=== PATIENT | female | born 1965 | race Caucasian/White ===

== ENCOUNTER 2024-04-22 07:30 | Observation (INO) | payer MEDICARE, SELFPAY ==
[2024-04-22] VITALS (67 sets, daily range): BP systolic 163–196; BP diastolic 91–116; PULSE 67–84; RESP 12–25; TEMP 36.5–36.9; O2SAT 92–100
--- NOTE | 2024-04-22 07:30 | DI.CT_ITS ---
Exam(s) CT BRAIN NECK CTA EXAM: CT BRAIN NECK CTA CLINICAL HISTORY: Vertigo, vertical nystagmus, ataxia. TECHNIQUE: Imaging Protocol: Axial CT angiography was performed with multi-slice acquisition and mu lti-planar and/or 3D reconstructions. CONTRAST MATERIAL: Intravenous: Omnipaque 350 Contrast volume:structured data in ml COMPARISON: No exams were available for comparison FINDINGS: CTA Neck W: Aortic arch anatomy: The aortic arch anatomy is conventional and there is no significant stenosis at the origin of the great vessels off of the aortic arch. No intimal flap evident. Anterior circulation: Both common carotid arteries ascend with normal luminal diameters. At the level the carotid bulbs and proximal internal carotid arteries there is no significant plaque and no hemodynamically significant stenosis evident. Posterior circulation: Both vertebral arteries originate in conventional fashion off of the subclavian arteries and there is no obvious stenosis at the origin of the vertebral arteries. Both vertebral arteries exhibit normal luminal diameters within the foramen transversarium. Both vertebral arteries contribute to the formation of the basilar artery at the skull base. CTA Brain W: Anterior circulation: Both internal carotid arteries are patent in the skull base-carotid canals as well as within the cave rnous sinuses. The supraclinoid aspects of the ICAs are patent. Right A1 segment. Anterior cerebral arteries are p atent and there is no aneurysm at level the anterior communicating. Both middle cerebral arteries are patent with no evidence of significant stenosis nor intraluminal th rombus. There also no aneurysms of these vessels. Posterior circulation: The basilar artery ascends in the midline. Distally it gives off patent bilateral superior cerebella r arteries. Above this level the basilar artery terminates as patent bilateral posterior cerebral arteries. There is no evidence of aneurysm at the tip of the basilar artery nor elsewhere in the hkrnjt-zo-Domn is. CT BRAIN: There is no evidence of intracranial hemorrhage, mass effect, or shift of midline structures. There are no extra-axial fluid collections. Ventricles are not enlarged or shifted. There are no ring enh ancing lesions in the brain and no abnormal meningeal enhancement. IMPRESSION: 1. Patent carotid arteries in the neck. No hemodynamically significant stenosis. 2. Patent vertebral arteries. No stenosis nor dissection. 3. Patent intracranial arteries. 4. No acute intracranial findings. No ring enhancing lesions in the brain and no evidence of abnorma l meningeal enhancement. Report called by myself to ER physician 04/22/2024 at 8:48 a.m. RADIATION DOSE DELIVERED: 2,133.71mGy.cm Total DLP DATA REPOSITORY: All CT scans at this facility are submitted to the National Radiology Data Registry (NRDR) Dose Index Registry (DIR) with the [employer] (A[employer]). RADIATION OPTIMIZATION: All CT scans at this facility use at least one of these dose optimization te chniques: automated exposure control; mA and/or kV adjustment per patient size (includes targeted exa ms where dose is matched to clinical indication); or iterative reconstruction.
--- NOTE | 2024-04-22 07:30 | RT.EKG_ITS ---
APPROVED REPORT Exam: Resting ECG Reason for Exam: Dizziness Patient Location: E HR:76 bpm ECG Measurements Heart Rate 76 AXIS AL 156 P 66 QRSd 111 QRS -53 QT 394 T 33 QTc 443 Conclusion Sinus rhythm, rate 76 No interval abnormalities Q wave lead III, aVF, no priors available for comparison No STEMI
--- NOTE | 2024-04-22 07:45 | ED.GENADUL_ITS ---
Discharge Plan Discharge Details Chief Complaint: Dizzy/Sync Primary Care Provider: Maite Bright ED Provider: Constance Harden Home Meds and New Rx's Prescriptions: No Action Medical Amparothierry 1 ea PO DAILY PRN levothyroxine 100 MCG tablet 100 mcg PO DAILY irbesartan [Avapro] 150 MG tablet 150 mg PO DAILY ibuprofen 600 MG tablet 600 mg PO QID PRN HPI General Mode of arrival: ambulatory . Date/Time Provider Initiated Documentation: 04/22/24 07:31 . Limitations to Documentation: no limitations . Information obtained by: patient and old records reviewed . HPI Narrative: HPI: This is a 58-year-old female patient with a history of hypertension, CRPS, hypothyroidism, presenting for evaluation of dizziness and today. The symptoms started suddenly at 6 AM yesterday, patient has vertigo that is worse when she tries to open her eyes, associated with numerous episodes of nonbloody vomiting. She states that she feels unsteady and has poor balance. The symptoms have been persistent throughout the day, sometimes improves with positioning but have never gone away completely. She has no personal history of vertigo, has not sustained any trauma, denies history of stroke. The patient reports that she has some numbness in her bilateral hands which is fairly typical for her with her CRPS. She has no new weakness or numbness otherwise. States that her vision is different, she feels like she can see blurry lines like a TV running down her vision. Exam: Gen: Awake and alert, in no apparent distress HEENT: Non-icteric sclera, PERRL, nonfatigable upward beating nystagmus bilaterally, EOMs are full. Bilateral TMs partially wax occluded, visible portions clear. Neck: Supple Lungs: No apparent respiratory distress, normal respiratory effort. CV: Appears well perfused, strong distal pulses Abdomen: Non-distended MSK: Moves 4 extremities without apparent limitation in ROM Skin: Visualized skin without rashes, cyanosis. Neuro: The patient has notable poor balance/ataxia when attempting to get out of the wheelchair. Ocular examination as noted above with vertical nystagmus, otherwise cranial nerves III to XII intact and symmetrical. 5 out of 5 strength x 4 extremities, numbness bilateral hands, no pronator drift. Psych: Appropriate for situation. MDM: This is a 58-year-old female patient presenting for evaluation of vertigo and vomiting for the last 24 hours. I am concerned for a central process given her vertical nystagmus, including posterior circulation stroke, intracranial mass or hemorrhage, vestibular migraine. My differential also includes peripheral causes including labyrinthitis, M?ni?re's disease. No positionality or intermittent nature to suggest BPPV. We will obtain laboratory studies to include CBC, CMP, magnesium, troponin, INR, and we will proceed with CTA brain and neck to better characterize any abnormalities. The patient is out of the tPA and thrombectomy window. Zofran provided for nausea. ED Course: I independently interpreted the laboratory studies, which show no significant leukocytosis, anemia, or thrombocytopenia. The chemistry panel is without evidence of electrolyte abnormality, kidney dysfunction, or liver injury. Troponin negative, INR 1.0. EKG with a sinus rhythm with no evidence of acute ischemia. CTA brain and neck reviewed by myself, discussed with radiologist, and shows no evidence of intracranial hemorrhage, mass effect, LVO or dissection. No evidence for ischemic changes. On reassessment the patient remains with vertical nystagmus and significant vertigo, and for this reason I did put in a teleneurology consult. I also provided the patient with a dose of meclizine for symptomatic management. Per my discussion with teleneurology, provided the patient with 325 of aspirin, and obtained an MRI with and without contrast. This did show an area of signal abnormality in the left para supraventricular white matter, no evidence for demyelinating abnormalities, and less consistent with the location that we would expect for stroke given her constellation of symptoms. However, the patient remains markedly ataxic, dizzy, with vision changes despite meclizine, and would still benefit from admission for physical therapy and ongoing workup and management. Per teleneurology, there is a potential for there to be an inner ear/vestibular neuritis component to her symptoms, and I did pass along to our hospitalist the recommendation to consider oral prednisone, 1 mg/kg daily for the next 7 days. I discussed the case with the hospitalist who is graciously accepted this patient for admission to their service. He remained hemodynamically appropriate while under my care and was transferred to their care without incident. Constance Harden MD Related Data Home Medications ?Medication ?Instructions ?Recorded ?Confirmed Medical Aundrea 1 ea PO DAILY PRN 01/19/17 04/22/24 irbesartan 150 mg tablet (Avapro) 150 mg PO DAILY 01/19/17 04/22/24 levothyroxine 100 mcg tablet 100 mcg PO DAILY 01/19/17 04/22/24 ibuprofen 600 mg tablet 600 mg PO QID PRN 04/22/24 04/22/24 Allergies Allergy/AdvReac Type Severity Reaction Status Date / Time duloxetine (From Cymbalta) AdvReac Intermediate Other (See Verified 04/22/24 07:41 Comment) pregabalin (From Lyrica) AdvReac Intermediate Other (See Verified 04/22/24 07:41 Comment) sulfabenzamide AdvReac Intermediate Unknown Unverified 04/22/24 07:41 General Stated Complaint: Dizzy/Sync EMMA: 3 Course Vital Signs Vital signs: Vital Signs Temperature 36.6 C 04/22/24 07:35 Pulse 72 04/22/24 07:35 Respiratory Rate 17 04/22/24 07:35 Blood Pressure 163/116 H 04/22/24 07:35 Pulse Oximetry 100 04/22/24 07:35 Temperature 36.6 C 04/22/24 07:35 Temperature Source Temporal Artery Scan 04/22/24 07:35 Pulse 72 04/22/24 07:35 Respiratory Rate 17 04/22/24 07:35 Blood Pressure 163/116 H 04/22/24 07:35 Pulse Oximetry 100 04/22/24 07:35 Oxygen Delivery Method Room Air 04/22/24 07:35 Oxygen Flow Rate 0 04/22/24 07:35 Pain Level 0 04/22/24 07:35 Medical Decision Making Quality:SDOH Health Related Social Needs: No Data to Display PFSH Social History Smoking/Tobacco Use Status: Never Smoking risk assessment performed?: Yes Alcohol Intake: never Drug use: Never Substance use type: marijuana Details: medical MJ Housing: house Do you feel safe in your relationship?: Yes
[2024-04-22 08:02] LABS: Abs Immature Grans 0.03 10^3/uL (0.0-0.06); Absolute Basophil Count 0.05 10^3/uL (0.0-0.2); Absolute Eosinophil Count 0.12 10^3/uL (0.0-0.7); Absolute Lymphocyte Count 2.25 10^3/uL (1.2-3.4); Absolute Monocyte Count 0.68 10^3/uL (0.1-0.8); Absolute Neutrophil Count 5.73 10^3/uL (1.2-6.7); Basophils % 0.6 %; Eosinophils % 1.4 %; HCT 45.1 % (36.0-46.0); HGB 15.3 g/dL (11.2-15.7); Immature Grans % 0.3 %; Lymphocytes % 25.4 %; MCH 29.8 pg (27.0-33.0); MCHC 33.9 % (32.0-36.0); MCV 88 fL (80-95); MPV 10.5 fL (8.0-11.0); Monocytes % 7.7 %; Neutrophils % 64.6 %; Platelet Count 255 10^3/uL (130-400); RBC 5.13 10^6/uL (3.93-5.22); RDW 11.9 % (11.7-14.6); RDW-SD 38.2 fL; WBC 8.86 10^3/uL (4.4-10.8)
[2024-04-22] MEDS: Omnipaque 350 MG/ML 500 ML BTL-Imaging package IJ (08:21)
[2024-04-22] MEDS: Normal Saline - Diluent 50 ML VIAL IJ (08:21)
[2024-04-22 08:47] LABS: ALT 30 U/L (14-59); AST 25 U/L (15-37); Alkaline Phosphatase 120 U/L (46-116); Anion Gap 11.9 mmol/L (3-11); BUN 12 mg/dL (7-18); CO2 24.1 mmol/L (21.0-32.0); CREATININE 0.9 mg/dL (0.55-1.02); Chloride 108 mmol/L (98-107); Estimated GFR 75.03 (mL/min/1.73m2); Glucose 101 mg/dL (74-106); Magnesium 2.1 mg/dL (1.8-2.4); Potassium 3.5 mmol/L (3.5-5.1); Sodium 144 mmol/L (136-145); Total Protein 8.1 g/dL (6.4-8.2); Troponin I 7 ng/L (<or=51)
[2024-04-22] MEDS: Meclizine 25 MG TAB PO (09:12)
[2024-04-22] MEDS: Ondansetron 4 MG/2 ML VIAL IVP (09:12)
--- OUTSIDE RECORDS SUMMARY | 2024-04-22 09:18 | XMS_ITS | Encounter Summary ---
Author Organization [facility] Address [address] [place] [id number] Care Team Providers Care Director Talent Name Role Phone Maite Bright DNP Primary Care Provider [phone] Reason for Referral * Radiology Services (Routine/Next Available) - Authorization Not Required Specialty Diagnoses / Procedures Referred By Contac t Referred To Contact Diagnoses Mass of upper outer quadrant of left breast Procedures MA BREAST DIAGNOSTIC ALANNA LEFT Mariela Clayton NP Phone: tel: fax: [facility] Referral ID Status Reason Start Date Expiration Date Visits Requested Visits Authorized [id number] Authorization Not Required 09/25/2022 1 1 Reason for Visit * Radiology Services (Routine/Next Available) - Authorization Not Required Specialty Diagnoses / Procedures Referred By Contac t Referred To Contact Diagnoses Mass of upper outer quadrant of left breast Procedures MA BREAST DIAGNOSTIC ALANNA LEFT Mariela Clayton NP Phone: tel: fax: [facility] Referral ID Status Reason Start Date Expiration Date Visits Requested Visits Authorized [id number] Authorization Not Required 09/25/2022 1 1 Encounter Details Date Type Department Care Team (Latest Contact Info) Description 10/14/2022 9:59 EDT Hospital Encounter [facility] Mammography [address] [place] [address] Mass of upper outer quadrant of left breast Discharge Disposition: Home or Self Care Social History Tobacco Use Types Packs/Day Years Used Date Smoking Tobacco: Never Smokeless Tobacco: Never Alcohol Use Standard Drinks/Week Comments Yes 0 (1 standard drink = 0.6 oz pur e alcohol) Overall Financial Resource Strain (CARDIA) Answe r Date Recorded How hard is it for you to pa y for the very basics like food, housing, medical care, and heating? Somewhat hard 06/03/2022 PHQ-2 Answer Date Recorded PHQ-2 SUBTOTAL 0 06/03/2022 Hunger Vital Sign Answer Date Recorded Within the past 12 months, y ou worried that your food would run out before you got the money to buy more. Never true 06/04/19 23 Within the past 12 months, t he food you bought just didn't last and you didn't have money to get more. Never true 06/03/2022 PRAPARE - Transportation Answer Date Re corded In the past 12 months, has l ack of transportation kept you from medical appointments or from getting medications? Yes 05/09 In the past 12 months, has l ack of transportation kept you from meetings, work, or from getting things needed for daily living? Yes 06/03/2022 Housing Stability Vital Sign Answer Mayo e Recorded In the last 12 months, was t here a time when you were not able to pay the mortgage or rent on time? Patient refused 06/04/19 In the last 12 months, how many places have you lived? 2 06/03/2022 In the last 12 months, was t here a time when you did not have a steady place to sleep or slept in a snf (including now)? No 06/03/2022 Interpersonal Safety Answer Date Record ed How often does anyone, bisi morris family, hit, punch or physically hurt you? Never 06/03/2022 How often does anyone, bisi morris family, insult, scream, curse or threaten to hurt you? Never 06/03/2022 Comments No Sex and Gender Information Value Date Recorded Sex Assigned at Female 01/30/2024 9:50 EST Legal Sex Female 17:44 EST Gender Identity Female 01/30/2024 9:50 EST Sexual Orientation Not on file documented as of this encounter Medications at Time of Discharge betamethasone dipropionate (DIPROLENE) 0.05 % ointment Apply 1 application topically 2 times daily. to eczema on body/extremities 9 CANNABIDIOL, CBD, EXTRACT ORAL Lactobac no.41/Bifidobact no.7 (PROBIOTIC-10 ORAL) Take by mouth. magnesium oxide (MAG-OX) 400 mg (241.3 mg magnesium) tablet Take 1 Tablet by mouth daily. MEDICAL MARIJUANA NATURAL BEE POLLEN ORAL Take by mouth. UNABLE TO FIND Multivitamin one tablet , Sig: orally daily irbesartan (AVAPRO) 150 mg tabletIndications:E ssential hypertension TAKE 1 TABLET BY MOUTH EVERY DAY 90 Tablet 3 2 04/09/19 24 levothyroxine (SYNTHROID) 100 mcg tabletIndications:A cquired hypothyroidism TAKE 1 TABLET BY MOUTH EVERY DAY 90 Tablet 3 2 11/26/19 23 documented as of this encounter Discharge Disposition Disposition Code Departure Means Destination Home or Self Care documented in this encounter Plan of Treatment Upcoming Encounters Date Type Department Care Team (Late st Contact Info) Description 07/07/2024 10:15 EDT Office Visit [facility] Family Medicine [address] [id number] Maite Bright DNP [address] [place] [id number] documented as of this encounter Procedures Procedure Name Priority Date/Time Associated Diagnosis Comments MA BREAST DIAGNOSTIC ALANNA LEFT Routine 10/14/2022 10:36 EDT Mass of upper outer quadrant of left breast documented in this encounter Results * MA BREAST DIAGNOSTIC ALANNA LEFT (10/14/2022 10:36 EDT) Anatomical Region Laterality Modality Breast Left Mammography 10/14/2022 14:2 7 EDT Impressions 10/14/2022 14:27 EDT DIAGNOSTIC LEFT BREAST MAMMOGRAM/ULTRASOUND IMPRESSION: BI-RADS Category 2: Benign * ??Benign. 0.9 cm maximal dimension benign fat-containing lesion at the site of palpable concern. RECOMMENDATION: Recommend clinical follow-up. Should this lesion enlarge, recommend repeat imaging assessment. The patient is due for annual bilateral screening mammogram in June 2023.. ??Олег Sheth discussed the findings and recommendations directly with the patient at the time of the examination. OVERALL ASSESSMENT: ??BI-RADS Category 2: Benign These results will be communicated to your patient via a lay letter from Radiology. If any additional imaging is needed we will contact your patient directly. [id number] Narrative 10/14/2022 14:27 EDT US BREAST LIMITED LEFT, MA BREAST DIAGNOSTIC ALANNA LEFT ?? SIGNS AND SYMPTOMS/COMMENTS: ??56 YO F W/ 1.2CM MOBILE, NONTENDER MASS OF LEFT BREAST AT 11-12:00 2CM FROM AREOLAR BORDER;N63.21:MASS OF UPPER OUTER QUADRANT OF LEFT BREAST COMPARISONS: Comparison has been made to prior examinations. FINDINGS: LEFT BREAST MAMMOGRAPHY: Full field digital whole breast 2D (C-view) and 3D CC, MLO and spot compression MLO views of the left breast were obtained. CAD technology was utilized. ?? * ??There are scattered areas of fibroglandular density. A triangular marker was placed over the upper left breast denoting area of palpable concern. Immediately adjacent to the marker, there is a oval circumscribed mass measuring 0.7 cm in maximal dimension containing internal fat density. There is no architectural distortion or suspicious microcalcification. LEFT BREAST ULTRASOUND: The upper left breast was scanned along the 11:00 axis to cover the area of palpable concern as directed by the patient. * ??Corresponding with the site of palpable concern, at the 11 o'clock position, 3 cm from the nipple, there is an oval circumscribed mildly hyperechoic mass oriented parallel to the chest wall without significant posterior acoustic features. It measures 0.7 x 0.4 x 0.9 cm. Findings are compatible with fat inflammation/necrosis or developing oil cyst. No suspicious sonographic abnormality was detected. us Mariela Clayton [employer]ODITY MANAGER IMG MAMMOGRAPHY ORDERABLES Final Result documented in this encounter Visit Diagnoses Diagnosis Mass of upper outer quadrant of left breast documented in this encounter Care Teams Director Talent Relationship Specialty Start Date End Date Maite Bright DNP [address] [place] [id number] PCP - General 11/27/15 documented as of this encounter
--- OUTSIDE RECORDS SUMMARY | 2024-04-22 09:18 | XMS_ITS | Referral Summary ---
Author Organization [facility] Address [address] [place] [address] Care Team Providers Care Ibm Websphere Commerce Developer Name Role Phone Maite Bright DNP Primary Care Provider [phone] Encounters Date Type Department Care Team Description 04/21/[address] [address] Maite Bright DNP Medications Refill 03/08/[address] [phone] Maite Bright DNP Referral Request 01/30/2024 9:54 EST - 01/30/2024 23:59 [facility] Encounter [facility] Ultrasound [address] [place] [address] Breast pain, right Discharge Disposition: Home or Self Care 01/30/2024 9:51 EST - 01/30/2024 9:53 [facility] Hospital Encounter [facility] Mammography [address] [place] [address] Breast pain, right; Encounter for screening mammogram for malignant neoplasm of breast Discharge Disposition: Home or Self Care from Last 3 Months Allergies Active Allergy Reactions Criticality Noted Date Comments Duloxetine Other (See Comments) Low 08/13/2018 Other reaction(s): passed out Pregabalin Other (See Comments) Low 08/13/2018 Other reaction(s): passed out Sulfa (Sulfonamide Antibiotics) Anaphylaxis High 02/15/2016 Throat swelling and rash Medications betamethasone dipropionate (DIPROLENE) 0.05 % ointment Apply 1 application topically 2 times daily. to eczema on body/extremitie s 019 Active UNABLE TO FIND Multivitamin one tablet , Sig: orally daily Active CANNABIDIOL, CBD, EXTRACT ORAL Active NATURAL BEE POLLEN ORAL Take by mouth. Act gurmeet magnesium oxide (MAG-OX) 400 mg (241.3 mg magnesium) tablet Take 1 Tablet by mouth daily. Active Lactobac no.41/Bifidobact no.7 (PROBIOTIC-10 ORAL) Take by mouth. Activ e MEDICAL MARIJUANA Ac tive levothyroxine (SYNTHROID) 100 mcg tabletIndications :Acquired hypothyroidism Take 1 Tablet by mouth daily. 90 Tablet 4 024 Active irbesartan (AVAPRO) 150 mg tabletIndications :Essential hypertension TAKE 1 TABLET BY MOUTH EVERY DAY 90 Tablet 3 025 Active irbesartan (AVAPRO) 150 mg tabletIndications :Essential hypertension TAKE 1 TABLET BY MOUTH EVERY DAY 90 Tablet 3 024 2024 Discontinued Active Problems Problem Noted Date Diagnosed Date Complex regional pain syndro me type 1 of both upper extremities 07/01/2019 Essential hypertension 04/26/2019 Hypothyroidism 04/26/2019 Intrinsic eczema 04/26/2019 Back pain 04/26/2019 Resolved Problems Problem Noted Date Diagnosed Date Resolved Date Mixed hyperlipidemia 04/26/2019 022 Immunizations Name Administration Dates Next Due Covid-19 mRNA Booster Vaccin e (MODERNA COVID-19 BOOSTER) PF 0.25 mL IM (18 yrs+) 03/08/2021 Covid-19 mRNA Vaccine (MODER NA COVID-19) PF 0.5 ml IM (12 yrs+) 08/08/2020,07/11/2020 Covid-19 mRNA-LNP Bivalent V accine (MODERNA BIVALENT ADDL DOSE) PF 0.5 mL IM (12 yrs+) (BLUE) 06/11/2022 Influenza Vaccine Quad (AFLURIA) PF 0.5 ml IM (3 yrs+) 12/22/2018 Shingrix (Zoster Vaccine, Recombinant) IM 2020,11/12/2019 Tdap Vaccine =>7YO IM 11/27/2015 Social History Tobacco Use Types Packs/Day Years [...] 06/03/2022 PHQ-2 Answer Date Recorded PHQ-2 SUBTOTAL 2 12/31/2023 Hunger Vital Sign Answer Date Recorded Within the past 12 months, y ou worried that your food would run out before you got the money to buy more. Never true 06/04/19 Within the past 12 months, t he [...] place to sleep or slept in a residential (including now)? No 06/03/2022 Interpersonal Safety Answer Date Record ed How often does anyone, noreenchayo alexandra family, hit, punch or physically hurt you? Never 06/03/2022 How often does anyone, noreenchayo alexandra family, insult, scream, curse or threaten to hurt you? Never 06/03/2022 Comments No Sex and Gender Information Value Date Recorded Sex Assigned at Female 01/30/2024 9:50 EST Legal Sex Female 17:44 EST Gender Identity Female 01/30/2024 9:50 EST Sexual Orientation Not on file Last Filed Vital Signs Vital Sign Reading Time Taken Comments Blood Pressure 150/90 12/31/2023 1349 EDT Pulse 83 12/31/2023 1349 EDT Temperature 37 ??C (98.6 ??F) 06/14/2021 0957 EDT Respiratory Rate 16 06/14/2021 0957 EDT Oxygen Saturation 98% 12/31/2023 1349 EDT Inhaled Oxygen Concentration - - Weight 92.1 kg (203 lb) 01/30/2024 1007 EST Height 163.8 cm (5' 4.5) 01/30/2024 1007 EST Body Mass Index 34.31 01/30/2024 1007 EST Plan of Treatment Upcoming Encounters Date Type Department Care Team (Late st Contact Info) Description 07/07/2024 10:15 EDT Office Visit [facility] - [address] [address] Maite Bright, [facility] [place] [address] [place] [address] Procedures Procedure Name Priority Date/Time Associated Diagnosis Comments US BREAST LIMITED RIGHT Routine 01/30/2024 10:49 EST Breast pain, right MA BREAST DIAGNOSTIC ALANNA BILATERAL Routine 01/30/2024 10:14 EST Breast pain, right Encounter for screening mammogram for malignant neoplasm of breast LIPID PROFILE (INCLUDES CHOLESTEROL, TRIGLYCERIDES, HDL, LDL) Routine 12/31/2023 8:56 EDT Screening, lipid PAP TEST Routine 06/11/2022 11:28 EDT Encounter for Medicare annual wellness exam Cervical cancer screening COLONOSCOPY PROCEDURE Routine 06/03/2018 from Last 3 Months or Most Recently Relevant to Health Maintenance Results * US BREAST LIMITED RIGHT (01/30/2024 10:49 EST) Anatomical Region Laterality Modality Breast Right Ultrasound 01/30/2024 13:2 4 EST Impressions 01/30/2024 13:24 EST RIGHT BREAST IMPRESSION: BI-RADS 2: Benign. * ??No mammographic or sonographic explanation for reported breast pain. LEFT BREAST IMPRESSION: BI-RADS 1: Negative. * ??Normal. RECOMMENDATION: * ??Follow-up with referring provider for clinical management of breast pain. Please note, negative imaging results should never preclude further evaluation and/or biopsy of any clinically suspicious palpable lump. * ??Resume annual mammographic screening with next exam to be scheduled for January 2025. These findings and recommendations were discussed with the patient by the nanoelectronics engineer shortly after completion of the examination. OVERALL ASSESSMENT: BI-RADS 2: Benign. These results will be communicated to the patient via a lay letter from Radiology. [address] [place] [address] [id number] Narrative 01/30/2024 13:24 EST MA BREAST DIAGNOSTIC ALANNA BILATERAL US BREAST LIMITED RIGHT ?? SIGNS AND SYMPTOMS/COMMENTS: * ??R breast pain; also due for screening. * ??Per patient, right breast focal pain at approximately 2:00-3:00, for 7-8 months. Patient denies a palpable lump. Left breast feeding. COMPARISONS: MAMMOGRAPHY - ??10/14/2022, 06/10/2022, 08/18/2017, 07/24/2016, 01/16/2009. FINDINGS: RIGHT BREAST MAMMOGRAPHY: Full field digital whole breast 2-D (C-view) and 3-D CC, ML and MLO views, as well as a 3-D spot compression CC view, were obtained. CAD technology was utilized. * ??The breasts are almost entirely fatty. * ??A square marker has been placed over the site of pain as directed by the patient, lying over the posterior upper inner quadrant. No underlying mammographic abnormality is visible. * ??No suspicious mass, calcifications, or architectural distortion is identified. RIGHT BREAST ULTRASOUND: Targeted ultrasound of the upper inner quadrant was performed. * ??No sonographic abnormality is identified in the region of pain indicated by the patient. LEFT BREAST MAMMOGRAPHY: Full field digital whole breast 2-D (C-view) and 3-D CC and MLO views were obtained. CAD technology was utilized. * ??The breasts are almost entirely fatty. * ??No suspicious mass, calcifications, or architectural distortion is identified. Resulting Agency Comment [id number] us Maite Bright DNP [facility] [place] ORDERABLES Final Result * MA BREAST DIAGNOSTIC ALANNA BILATERAL (01/30/2024 10:14 EST) Anatomical Region Laterality Modality Breast Bilateral Mammography 01/30/2024 13:2 4 EST Impressions 01/30/2024 13:24 EST RIGHT BREAST IMPRESSION: BI-RADS 2: Benign. * ??No mammographic or sonographic explanation for reported breast pain. LEFT BREAST IMPRESSION: BI-RADS 1: Negative. * ??Normal. RECOMMENDATION: * ??Follow-up with referring provider for clinical management of breast pain. Please note, negative imaging results should never preclude further evaluation and/or biopsy of any clinically suspicious palpable lump. * ??Resume annual mammographic screening with next exam to be scheduled for January 2025. These findings and recommendations were discussed with the patient by the nanoelectronics engineer shortly after completion of the examination. OVERALL ASSESSMENT: BI-RADS 2: Benign. These results will be communicated to the patient via a lay letter from Radiology. [address] [place] [address] [id number] Narrative 01/30/2024 13:24 EST MA BREAST DIAGNOSTIC ALANNA BILATERAL US BREAST LIMITED RIGHT ?? SIGNS AND SYMPTOMS/COMMENTS: * ??R breast pain; also due for screening. * ??Per patient, right breast focal pain at approximately 2:00-3:00, for 7-8 months. Patient denies a palpable lump. Left breast feeding. COMPARISONS: MAMMOGRAPHY - ??10/14/2022, 06/10/2022, 08/18/2017, 07/24/2016, 01/16/2009. FINDINGS: RIGHT BREAST MAMMOGRAPHY: Full field digital whole breast 2-D (C-view) and 3-D CC, ML and MLO views, as well as a 3-D spot compression CC view, were obtained. CAD technology was utilized. * ??The breasts are almost entirely fatty. * ??A square marker has been placed over the site of pain as directed by the patient, lying over the posterior upper inner quadrant. No underlying mammographic abnormality is visible. * ??No suspicious mass, calcifications, or architectural distortion is identified. RIGHT BREAST ULTRASOUND: Targeted ultrasound of the upper inner quadrant was performed. * ??No sonographic abnormality is identified in the region of pain indicated by the patient. LEFT BREAST MAMMOGRAPHY: Full field digital whole breast 2-D (C-view) and 3-D CC and MLO views were obtained. CAD technology was utilized. * ??The breasts are almost entirely fatty. * ??No suspicious mass, calcifications, or architectural distortion is identified. Maite Bright [facility] [place] IM MAMMOGRAPHY ORDERABLES Final Result * (ABNORMAL) LIPID PROFILE (INCLUDES CHOLESTEROL, TRIGLYCERIDES, HDL, LDL) (12/31/2023 8:56 EDT) Cholesterol 291(H) <200 mg/dL 12/31/2023 10:46 [facility] Comment:Note that therapeuti c goals will differ between patients based on cardiac risk factors and current medical therapy. HDL 64 >=50 mg/dl 12/31/2023 10:46 [facility] Comment:Note that therapeuti c goals will differ between patients based on cardiac risk factors and current medical therapy. LDL, Calculated 186(H) <160 mg/dL 10:46 [facility] Comment:Note that therapeuti c goals will differ between patients based on cardiac risk factors and current medical therapy. Triglyceride 203(H) <=150 mg/dL 12/31/2023 10:46 [facility] Comment:Note that therapeuti c goals will differ between patients based on cardiac risk factors and current medical therapy. Chol/HDL Ratio 4.5 See Note 12/31/2023 10:46 [facility] Comment: NOTE: Desirable Ratio = <4.1 Patient At Risk Ratio = >5.0(Males) ?>6.0(Females) Non HDL Cholesterol 227(H) <160 mg/dL 12/31/2023 10:46 [facility] Comment:Note that therapeuti c goals will differ between patients based on cardiac risk factors and current medical therapy. Blood VENOUS BLOOD / Unknown Venipuncture / Unknown 12/31/2023 8:56 EDT 12/31/2023 10:01 EDT us Maite Bright DNP CHEMISTRY & BLOOD GAS ORDERABLES Final Result Performing Organization Address City/[facility]/ZIP Co de Phone Number [facility] [address] [place] [phone] * PAP TEST (06/11/2022 11:28 EDT) Specimens A. Cervix and/or Endocervix , ThinPrep Imaging System with Manual Evaluation 06/25/2022 15:15 EDT [facility] Specimen Adequacy Satisfactory for Evaluation - transformation zone component absent 06/25/2022 15:15 T [facility] General Categorization Negative for intraepithelial lesion or malignancy 06/25/2022 15:15 T [facility] Attestation . 06/25/2022 15:15 T [facility] at 1515 Clinical History cervical cancer screen 06/25/2022 15:15 EDT [facility] HPV The result for the Human Papillomavirus (HPV) Detection-High Risk Types is Negative. No E6 or E7 mRNA is detected from HPV types 16,18,31,33,35,39 ,45,51,52,56,58,5 9,66, and 68 by master pilot mediated amplification.Yamila ting was performed on specimen [id number] and was resulted on 06/25/2022 1515 EDT by MARCELA, LAB INSTRUMENT RESULTS IN 06/25/2022 15:15 EDT [facility] Performing Lab [facility] 06/25/2022 15:15 EDT [facility] Scanned Images 06/25/2022 15:15 EDT [facility] Papanicolaou smear specimen (specimen) CERVIX UTERI STRUCTURE / Unknown 06/11/2022 11:28 EDT 06/11/2022 11:28 EDT us Maite Bright DNP PATHOLOGY ORDERABLES Final Resul t [facility] [address] [place] [address] * COLONOSCOPY PROCEDURE (06/03/2018) Colonoscopy Colonoscopy, External Comment:Normal, repeat in 10 yrs Anatomical Region Laterality Modality Endoscopy us Historical Provider GI PROCEDURE ORDERABLES F inal Result from Last 3 Months or Most Recently Relevant to Health Maintenance [place] Care Teams Ibm Websphere Commerce Developer Relationship Specialty Start Date End Date Maite Bright DNP [address] [place] [phone] PCP - General 11/27/15
--- OUTSIDE RECORDS SUMMARY | 2024-04-22 09:18 | XMS_ITS | Encounter Summary ---
Author Organization [facility] Address [address] [place] [address] Care Team Providers Care Civil Drafting Technician Name Role Phone Maite Bright DNP Primary Care Provider [phone] Reason for Visit * Reason Comments Med Change Request Encounter Details Date Type Department Care Team (Late st Contact Info) Description 12/24/2023 Refill [facility] [address] [address] Maite Bright DNP [address] [place] [phone] Med Change Request Social History Tobacco Use Types Packs/Day Years [...] or rent on time? Patient refused 06/04/19 23 In the last 12 months, how many places have you lived? 2 06/03/2022 In the last 12 months, was t here a time when you did not have a steady place to sleep or slept in a halfway (including now)? No 06/03/2022 Interpersonal Safety Answer Date Record ed How often does anyone, inclchayo alexandra family, hit, punch or physically hurt you? Never 06/03/2022 How often does anyone, inclchayo morris family, insult, scream, curse or threaten to hurt you? Never 06/03/2022 Comments No Sex and Gender Information Value Date Recorded Sex Assigned at Female 01/30/2024 9:50 EST Legal Sex Female 17:44 EST Gender Identity Female 01/30/2024 9:50 EST Sexual Orientation Not on file documented as of this encounter Miscellaneous Notes * Telephone Encounter - Marcelina Etienne RN - 12/24/2023 0953 EDT Labs ordered. Levothyroxine declined. Patient needs fasting labs drawn documented in this encounter Plan of Treatment Upcoming Encounters Date Type Department Care Team (Late st Contact Info) Description 07/07/2024 10:15 EDT Office Visit [facility] [address] [place] [address] Maite Bright DNP [address] [place] [address] documented as of this encounter Results * COMPREHENSIVE METABOLIC PANEL (CMP) (12/31/2023 8:56 EDT) Sodium 142 136 - 145 mmol/L 12/31/2023 10:46 [facility] Potassium 4.4 3.5 - 5.0 mmol/L 12/31/2023 10:46 [facility] Chloride 105 96 - 110 mmol/L 12/31/2023 10:46 [facility] CO2 Total 27 22 - 32 mmol/L 12/31/2023 10:46 [facility] Glucose 77 70 - 99 mg/dl 12/31/2023 10:46 [facility] BUN 12 10 - 26 mg/dL 12/31/2023 10:46 [facility] Creatinine 0.80 0.52 - 1.04 mg/dL 12/31/2023 10:46 [facility] eGFR 86 >60 mL/min/1.7 3m2 12/31/2023 10:46 [facility] Total Protein 7.1 6.3 - 8.2 g/dL 12/31/2023 10:46 [facility] Albumin 4.6 3.4 - 4.9 g/dL 12/31/2023 10:46 [facility] Alkaline Phosphatase 98 38 - 126 U/L 12/31/2023 10:46 [facility] AST 26 15 - 46 U/L 12/31/2023 10:46 [facility] ALT 25 <35 U/L 12/31/2023 10:46 [facility] Bilirubin, Total 0.9 <1.4 mg/dL 12/31/19 10:46 [facility] Calcium 10.0 8.5 - 10.5 mg/dL 12/31/2023 10:46 [facility] Albumin/Globulin Ratio 1.8 1.0 - 2.5 12/31/2023 10:46 [facility] Anion Gap 10 5 - 14 mmol/L 12/31/2023 10:46 [facility] Blood VENOUS BLOOD / Unknown Venipuncture / Unknown 12/31/2023 8:56 EDT 12/31/2023 10:01 EDT Maite Hernandezne [facility] CHEMISTRY & BLOOD GAS ORDERABLES Final Result [facility] [address] [place] [address] * (ABNORMAL) LIPID PROFILE (INCLUDES CHOLESTEROL, TRIGLYCERIDES, HDL, LDL) (12/31/2023 8:56 EDT) Cholesterol 291(H) <200 mg/dL 12/31/2023 10:46 [facility] Comment:Note that therapeuti c goals will differ between patients based on cardiac risk factors and current medical therapy. HDL 64 >=50 mg/dl 12/31/2023 10:46 [facility] Comment:Note that therapeuti c goals will differ between patients based on cardiac risk factors and current medical therapy. LDL, Calculated 186(H) <160 mg/dL 10:46 [facility] Comment:Note that therapeuti c goals will differ between patients based on cardiac risk factors and current medical therapy. Triglyceride 203(H) <=150 mg/dL 12/31/2023 10:46 [facility] Comment:Note that therapeuti c goals will differ between patients based on cardiac risk factors and current medical therapy. Chol/HDL Ratio 4.5 See Note 12/31/2023 10:46 [facility] Comment: NOTE: Desirable Ratio = <4.1 Patient At Risk Ratio = >5.0(Males) ?>6.0(Females) Non HDL Cholesterol 227(H) <160 mg/dL 12/31/2023 10:46 [facility] Comment:Note that therapeuti c goals will differ between patients based on cardiac risk factors and current medical therapy. Blood VENOUS BLOOD / Unknown Venipuncture / Unknown 12/31/2023 8:56 EDT 12/31/2023 10:01 EDT Maite Bright [facility] CHEMISTRY & BLOOD GAS ORDERABLES Final Result Performing Organization Address City/[facility]/ZIP Co de Phone Number [facility] [address] [place] [address] * TSH (12/31/2023 8:56 EDT) TSH 1.46 0.47 - 4.68 mIU/L 12/31/2023 11:22 EDT [facility] Blood VENOUS BLOOD / Unknown Venipuncture / Unknown 12/31/2023 8:56 EDT 12/31/2023 10:01 EDT Narrative [facility] - 12/31/2023 11:22 EDT The results of this assay can be falsely lowered due to the consumption of Biotin. Maite Bright [facility] CHEMISTRY & BLOOD GAS ORDERABLES Final Result Performing Organization Address City/[facility] Co de Phone Number [facility] [address] [place] [phone] documented in this encounter Visit Diagnoses Diagnosis Essential hypertension- Primary Unspecified essential hypertension Acquired hypothyroidism Unspecified hypothyroidism Screening, lipid Screening for lipoid disorders documented in this encounter Care Teams Civil Drafting Technician Relationship Specialty Start Date End Date Maite Bright DNP [address] [place] [phone] PCP - General 11/27/15 documented as of this encounter
--- OUTSIDE RECORDS SUMMARY | 2024-04-22 09:18 | XMS_ITS | Encounter Summary ---
Author Organization [facility] Address [address] [place] [address] Care Team Providers Care Sailing Instructor Name Role Phone Maite Bright DNP Primary Care Provider [phone] Reason for Visit * Reason Comments Medications Refill Encounter Details Date Type Department Care Team (Late st Contact Info) Description 04/09/[address] [facility] [address] [address] Maite Bright DNP [address] [place] [address] [phone] Medications Refill Social History Tobacco Use Types Packs/Day Years [...] place to sleep or slept in a prison (including now)? No 06/03/2022 Interpersonal Safety Answer Date Record ed How often does anyone, inclchayo morris family, hit, punch or physically hurt [...] on file documented as of this encounter Ordered Prescriptions Prescription Sig Dispense Quantity Refills Last Filled Start Date End Date irbesartan (AVAPRO) 150 mg tabletIndications: Essential hypertension TAKE 1 TABLET BY MOUTH EVERY DAY 90 Tablet 3 04/09/2023 04/21/2024 documented in this encounter Miscellaneous Notes * Telephone Encounter - Marcelina Etienne RN - 04/09/2023 0828 EST Medication Requested: Irbesartan 150mg Last OV: 12/12/2022 Next OV: 06/12/2023 Last Refill (If required): 02/18/2022 90 3RF Last Labs (BMP/CMP/LIPID/TSH) : 06/11/2022 Pharmacy Of Choice: [facility] documented in this encounter Plan of Treatment Upcoming Encounters Date Type Department Care Team (Late st Contact Info) Description 07/07/2024 10:[address] [facility] [address] [phone] Maite Bright DNP [address] [place] [address] documented as of this encounter Visit Diagnoses Diagnosis Essential hypertension- Primary Unspecified essential hypertension documented in this encounter Discontinued Medications Medication Sig Discontinue Reason Start Date End Da te irbesartan (AVAPRO) 150 mg tabletIndications:Maci al hypertension TAKE 1 TABLET BY MOUTH EVERY DAY 02/18/2022 04/09/2023 documented as of this encounter Care Teams Sailing Instructor Relationship Specialty Start Date End Date Maite Bright DNP [address] [place] [address] PCP - General 11/27/15 documented as of this encounter
--- OUTSIDE RECORDS SUMMARY | 2024-04-22 09:18 | XMS_ITS | Encounter Summary ---
Author Organization [facility] Address [address] [place] [address] Care Team Providers Care Textile Machine Operator Name Role Phone Maite Bright DNP Primary Care Provider [phone] Reason for Visit * Reason Onset Date Comments Referral Request 03/08/2024 Encounter Details Date Type Department Care Team (Late st Contact Info) Description 03/08/2024 Telephone [facility] Family [address] [address] Maite Bright DNP [address] [place] [address] Referral Request Social History Tobacco Use Types Packs/Day [...] encounter Miscellaneous Notes * Telephone Encounter - Maite Bright DNP - 03/11/2024 1635 EST Does she have an appointment for her hip? Can you ask her for more info about her finger? Symptoms,frequency, duration, impact on ADLs? * Telephone Encounter - Lyn Xiao - 03/11/2024 1500 EST Patient spoke with Ortho- unclear as they told her she had appt in May for Hip,which she did not sched however did say the PCP office needed to send more information regarding finger * Telephone Encounter - Lyn Xiao - 03/09/2024 1450 EST Unfortunately technology... My apologize I just got to Oct referral check ins yesterday * Telephone Encounter - Sergio Escobar NP - 03/08/[address] referral * Telephone Encounter - Lyn Xiao - 03/08/2024 1308 EST Called out to Roman to check on status of referral- Roman did not receive referral in Dec. Needs new referral for both referrals for ortho ( hip and finger) to be ordered if patient is still interested. documented in this encounter Plan of Treatment Upcoming Encounters Date Type Department Care Team (Late st Contact Info) Description 07/07/2024 10:15 EDT Office Visit [facility] [address] [phone] Maite Bright DNP [address] [place] [phone] documented as of this encounter Visit Diagnoses Not on filedocumented in this encounter Care Teams Textile Machine Operator Relationship Specialty Start Date End Date Maite Bright DNP [address] [place] [phone] PCP - General 11/27/15 documented as of this encounter
--- OUTSIDE RECORDS SUMMARY | 2024-04-22 09:18 | XMS_ITS | Encounter Summary ---
Author Organization [facility] Address [address] [place] [address] Care Team Providers Care Television Specialist Name Role Phone Maite Bright DNP Primary Care Provider [phone] Reason for Visit * Reason Comments Medications Refill Encounter Details Date Type Department Care Team (Late st Contact Info) Description 11/30/2023 Refill [facility] Integrative Family Medicine [address] [address] Maite Bright DNP [address] [place] [address] Medications Refill Social History Tobacco Use Types [...] place to sleep or slept in a senior living (including now)? No 06/03/2022 Interpersonal Safety Answer Date Record ed How often does anyone, inclchayo morris family, hit, punch or physically hurt you? Never 06/03/2022 How often does anyone, inclu alexandra family, insult, scream, curse or threaten to hurt you? Never 06/03/2022 Comments No Sex and Gender Information Value Date Recorded Sex Assigned at Female 01/30/2024 9:50 EST Legal Sex Female 17:44 EST Gender Identity Female 01/30/2024 9:50 EST Sexual Orientation Not on file documented as of this encounter Ordered Prescriptions Prescription Sig Dispense Quantity Refills Last Filled Start Date End Date levothyroxine (SYNTHROID) 100 mcg tabletIndications:Ac quired hypothyroidism TAKE 1 TABLET BY MOUTH EVERY DAY 30 Tablet 12/01/2023 documented in this encounter Miscellaneous Notes * Telephone Encounter - Marcelina Etienne RN - 12/01/2023 0871 EDT Medication Requested: Levothyroxine 100mcg Last OV: 12/12/2022 Next OV: 12/31/2023 Last Refill (If required): 11/25/2022 Last Labs (BMP/CMP/LIPID/TSH) : overdue for TSH Pharmacy Of Choice: [facility] documented in this encounter Plan of Treatment Upcoming Encounters Date Type Department Care Team (Late st Contact Info) Description 07/07/2024 10:15 EDT Office Visit [facility] Family Medicine [address] [phone] Maite Bright DNP [address] [place], [place] [phone] documented as of this encounter Visit Diagnoses Diagnosis Acquired hypothyroidism- Primary Unspecified hypothyroidism documented in this encounter Discontinued Medications Medication Sig Discontinue Reason Start Date End Da te levothyroxine (SYNTHROID) 100 mcg tabletIndications:Acquired hypothyroidism TAKE 1 TABLET BY MOUTH EVERY DAY 11/25/2022 12/01/2023 documented as of this encounter Care Teams Television Specialist Relationship Specialty Start Date End Date Maite Bright DNP [address] [place] [address] PCP - General 11/27/15 documented as of this encounter
--- OUTSIDE RECORDS SUMMARY | 2024-04-22 09:18 | XMS_ITS | Encounter Summary ---
Author Organization [facility] Address [address] [place] [address] Care Team Providers Care Hairmasters Manager Name Role Phone Calli Brightily KORINA Primary Care Provider [phone] Encounter Details Date Type Department Care Team (Late st Contact Info) Description 01/02/2024 Patient Outreach [facility] Family [address] [phone] Inna Farrell LICSW Social History Tobacco Use Types Packs/Day Years [...] place to sleep or slept in a custodial (including now)? No 06/03/2022 Interpersonal Safety Answer [...] on file documented as of this encounter Progress Notes * Inna Farrell, CLOTH SHEARING SUPERVISOR - 01/02/2024 1003 EDT [facility] Integrated Care Management Care Coordination Note Wood Panel Inspector spoke with Meli on 01/02/24 in order to coordinate care. 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 When her aunt moved, it was agreed that Meli would care for her home. Her aunt has since passed, and the house was left to her kids, herself, and a cousin. Meli shared that there was a verbal agreement that she would remain in the house for another year, but two of her family members decided to sell the house. The house has since been sold. Meli will be getting some money from the sale of the home, and it is being set up in a special needs trust. In the meantime, she is staying with a friend. Meli shared that she had been living in [place], [place]. She is now living in [facility]. She wouldideally like to live in [place] or within fifteen minutes from there. She has looked into the different housing authorities and applied for Section 8 Housing. She shared that [place] [employer] rejected her application since she did not emphasize a preferred location. At that time, there was only [place] housing available. Meli said that the [place] area is too far away. Meli shared that she has put an ad in [employer], but has not heard anything back. CM encouraged her to keep her advertisement fresh and to consider putting in ad in the WORLD and/or on [employer]. Meli said she would follow through with these options. She is open to a home share situation, and will continue to explore these venues. PLAN: It appears Meli is doing what she needs to do to secure housing. Meli denied any additional needs, and did not feel that CM follow up is necessary. JOHNNY ALBERTS 01/02/2024 10:03 documented in this encounter Plan of Treatment Upcoming Encounters Date Type Department Care Team (Late st Contact Info) Description 07/07/2024 10:15 EDT Office Visit [facility] Integr[facility] Family Medicine [facility] [address] [place], [place] [phone] Maite Bright DNP [address] [place] [address] documented as of this encounter Visit Diagnoses Not on filedocumented in this encounter Care Teams Hairmasters Manager Relationship Specialty Start Date End Date Maite Bright DNP [address] [place] [address] PCP - General 11/27/15 documented as of this encounter
--- OUTSIDE RECORDS SUMMARY | 2024-04-22 09:18 | XMS_ITS | Encounter Summary ---
Author Organization [facility] Address [address] [place] [address] Care Team Providers Care Motor Vehicle Emissions Inspector Name Role Phone Maite Bright DNP Primary Care Provider [phone] Reason for Visit * Reason Onset Date Comments Results 12/19/2022 Encounter Details Date Type Department Care Team (Late st Contact Info) Description 12/19/2022 Telephone [facility] Family [address] [address] Marcelina Etienne, RN Results Social History Tobacco Use Types Packs/Day Years [...] place to sleep or slept in a group home (including now)? No 06/03/2022 Interpersonal Safety Answer [...] Telephone Encounter - Marcelina Etienne RN - 12/23/2022 1009 EDT Vm left to review Beepi message. Drippler message sent to patient * Telephone Encounter - Ketty Boswell - 12/19/2022 1544 EDT Pt is calling Marcelina back. * Telephone Encounter - Marcelina Etienne RN - 12/19/2022 1516 EDT ----- Message from Sergio Escobar NP sent at 12/19/2022 12:04 EDT ----- Xrs of the lumbar and cervical spine show multilevel degenerative disease (arthritis) throughout. Please have her continue with plan for PT as discussed during her visit with EB and follow up if sxs worsening. documented in this encounter Plan of Treatment Upcoming Encounters Date Type Department Care Team (Late st Contact Info) Description 07/07/2024 10:15 EDT Office Visit [facility] Family Medicine [address] [address] Maite Bright DNP [address] [place] [address] documented as of this encounter Visit Diagnoses Not on filedocumented in this encounter Care Teams Motor Vehicle Emissions Inspector Relationship Specialty Start Date End Date Maite Bright DNP [address] [place] [address] PCP - General 11/27/15 documented as of this encounter
--- OUTSIDE RECORDS SUMMARY | 2024-04-22 09:18 | XMS_ITS | Encounter Summary ---
Author Organization [facility] Address [address] [place] [address] Care Team Providers Care Skin Lifter Bacon Name Role Phone Calli Brightily KORINA Primary Care Provider [phone] Encounter Details Date Type Department Care Team (Latest Contact Info) Description 12/12/2022 Travel Social History Tobacco Use Types Packs/Day Years [...] place to sleep or slept in a jail (including now)? No 06/03/2022 Interpersonal Safety Answer [...] on file documented as of this encounter Plan of Treatment Upcoming Encounters Date Type Department Care Team (Late st Contact Info) Description 07/07/2024 10:15 EDT Office Visit [facility] Family Medicine [address] [address] Maite Bright DNP [address] [place] [address] documented as of this encounter Visit Diagnoses Not on filedocumented in this encounter Care Teams Skin Lifter Bacon Relationship Specialty Start Date End Date Maite Bright DNP [address] [place] [address] PCP - General 11/27/15 documented as of this encounter
--- OUTSIDE RECORDS SUMMARY | 2024-04-22 09:18 | XMS_ITS | Encounter Summary ---
Author Organization [facility] Address [address] [place] [address] Care Team Providers Care Heater Operator Name Role Phone Maite Bright DNP Primary Care Provider [phone] Reason for Referral * Radiology Services (Routine/Next Available) - Authorization Not Required Specialty Diagnoses / Procedures Referred By Tristen taveras Referred To Contact Diagnoses Breast pain, right Encounter for screening mammogram for malignant neoplasm of breast Procedures MA BREAST DIAGNOSTIC ALANNA BILATERAL Maite Bright DNP [address] [place] [address] Phone: tel: fax: [facility] Referral ID Status Reason Start Date Expiration Date Visits Requested Visits Authorized [id number] Authorization Not Required 4 1 1 Reason for Visit * Radiology Services (Routine/Next Available) - Authorization Not Required Specialty Diagnoses / Procedures Referred By Tristen taveras Referred To Contact Diagnoses Breast pain, right Encounter for screening mammogram for malignant neoplasm of breast Procedures MA BREAST DIAGNOSTIC ALANNA BILATERAL Maite Bright DNP [address] [place] [address] Phone: tel: fax: [facility] Referral ID Status Reason Start Date Expiration Date Visits Requested Visits Authorized [id number] Authorization Not Required 4 1 1 Encounter Details Date Type Department Care Team (Latest Contact Info) Description 01/30/2024 9:51 EST - 01/30/2024 9:[address] [facility] M[facility]ography [address] [place] [address] Breast pain, right; Encounter for screening mammogram [...] to sleep or slept in a senior care (including now)? No 06/03/2022 Interpersonal Safety Answer [...] no.41/Bifidobact no.7 (PROBIOTIC-10 ORAL) Take by mouth. levothyroxine (SYNTHROID) 100 mcg tabletIndications:A cquired hypothyroidism Take 1 Tablet by mouth daily. 90 Tablet 4 4 magnesium oxide (MAG-OX) 400 mg (241.3 mg magnesium) tablet Take 1 Tablet by mouth daily. MEDICAL MARIJUANA NATURAL BEE POLLEN ORAL Take by mouth. UNABLE TO FIND Multivitamin one tablet , Sig: orally daily irbesartan (AVAPRO) 150 mg tabletIndications:E ssential hypertension TAKE 1 TABLET BY MOUTH EVERY DAY 90 Tablet 3 4 04/21/19 25 documented as of this encounter Discharge Disposition Disposition Code Departure Means Destination Home or Self Care documented in this encounter Plan of Treatment Upcoming Encounters Date Type Department Care Team (Late st Contact Info) Description 07/07/2024 10:15 EDT Office Visit [facility] Family Medicine [address] [address] Maite Bright [address] [address] documented as of this encounter Procedures Procedure Name Priority Date/Time Associated Diagnosis Comments MA BREAST DIAGNOSTIC ALANNA BILATERAL Routine 01/30/2024 10:14 EST Breast pain, right Encounter for screening mammogram for malignant neoplasm of breast documented in this encounter Results * MA BREAST DIAGNOSTIC ALANNA BILATERAL (01/30/2024 [...] were discussed with the patient by the microsoft developer shortly after completion of the examination. OVERALL ASSESSMENT: BI-RADS 2: Benign. These results will be communicated to the patient via a lay letter from Radiology. [address] [place] [address] [id number] Narrative 01/30/2024 13:24 EST MA BREAST DIAGNOSTIC [...] or architectural distortion is identified. Maite Bright DNP IMG MAMMOGRAPHY ORDERABLES Final Result documented in this encounter Visit Diagnoses Diagnosis Breast pain, right Mastodynia Encounter for screening mammogram for malignant neoplasm of breast Other screening mammogram documented in this encounter Care Teams Heater Operator Relationship Specialty Start Date End Date Maite Bright DNP [address] [place] [address] PCP - General 11/27/15 documented as of this encounter
--- OUTSIDE RECORDS SUMMARY | 2024-04-22 09:18 | XMS_ITS | Encounter Summary ---
Author Organization [facility] Address [address] [place] [address] Care Team Providers Care Forepart Rounder Name Role Phone Maite Bright DNP Primary Care Provider [phone] Encounter Details Date Type Department Care Team (Late st Contact Info) Description 12/31/2023 8:50 EDT Phlebotomy Only [facility] - Outpatient Phlebotomy Drawing [address] [place] [address] Lab, [facility] Op Phlebotomy Acquired hypothyroidism; Screening, lipid; Essential hypertension Social History Tobacco Use Types Packs/Day Years [...] place to sleep or slept in a longterm (including now)? No 06/03/2022 Interpersonal Safety Answer [...] Info) Description 07/07/2024 10:15 EDT Office Visit [facility] Family Medicine [address] [address] Maite Bright, [address] [address] documented as of this encounter Procedures Procedure Name Priority Date/Time Associated Diagnosis Comments TSH Routine 12/31/2023 8:56 EDT Acquired hypothyroidism LIPID PROFILE (INCLUDES CHOLESTEROL, TRIGLYCERIDES, HDL, LDL) Routine 12/31/2023 8:56 EDT Screening, lipid COMPREHENSIVE METABOLIC PANEL (CMP) Routine 12/31/2023 8:56 EDT Essential hypertension documented in this encounter Results * COMPREHENSIVE METABOLIC PANEL (CMP) (12/31/2023 8:56 EDT) Sodium 142 136 - 145 mmol/L 12/31/2023 10:46 [facility] Potassium 4.4 3.5 - 5.0 mmol/L 12/31/2023 10:46 [facility] Chloride 105 96 - 110 mmol/L 12/31/2023 10:46 [facility] CO2 Total 27 22 - 32 mmol/L 12/31/2023 10:46 [facility] Glucose 77 70 - 99 mg/dl 12/31/2023 10:46 [facility] BUN 12 10 - 26 mg/dL 12/31/2023 10:46 [facility] Creatinine 0.80 0.52 - 1.04 mg/dL 12/31/2023 10:46 [facility] eGFR 86 >60 mL/min/1.7 3m2 12/31/2023 10:46 [facility] Total Protein 7.1 6.3 - 8.2 g/dL 12/31/2023 10:46 [facility] Albumin 4.6 3.4 - 4.9 g/dL 12/31/2023 10:46 [facility] Alkaline Phosphatase 98 38 - 126 U/L 12/31/2023 10:46 [facility] AST 26 15 - 46 U/L 12/31/2023 10:46 [facility] ALT 25 <35 U/L 12/31/2023 10:46 [facility] Bilirubin, Total 0.9 <1.4 mg/dL 12/31/19 10:46 [facility] Calcium 10.0 8.5 - 10.5 mg/dL 12/31/2023 10:46 [facility] Albumin/Globulin Ratio 1.8 1.0 - 2.5 12/31/2023 10:46 [facility] Anion Gap 10 5 - 14 mmol/L 12/31/2023 10:46 [facility] Blood VENOUS BLOOD / Unknown Venipuncture / Unknown 12/31/2023 8:56 EDT 12/31/2023 10:01 EDT Maite Hernandezne [facility] CHEMISTRY & BLOOD GAS ORDERABLES Final Result [facility] [address] [place] [address] * (ABNORMAL) LIPID PROFILE (INCLUDES CHOLESTEROL, TRIGLYCERIDES, HDL, LDL) (12/31/2023 8:56 EDT) Cholesterol 291(H) <200 mg/dL 12/31/2023 10:46 [facility] Comment:Note that therapeuti c goals will differ between patients based on cardiac risk factors and current medical therapy. HDL 64 >=50 mg/dl 12/31/2023 10:46 [facility] Comment:Note that therapeuti c goals will differ between patients based on cardiac risk factors and current medical therapy. LDL, Calculated 186(H) <160 mg/dL 10:46 [facility] Comment:Note that therapeuti c goals will differ between patients based on cardiac risk factors and current medical therapy. Triglyceride 203(H) <=150 mg/dL 12/31/2023 10:46 [facility] Comment:Note that therapeuti c goals will differ between patients based on cardiac risk factors and current medical therapy. Chol/HDL Ratio 4.5 See Note 12/31/2023 10:46 [facility] Comment: NOTE: Desirable Ratio = <4.1 Patient At Risk Ratio = >5.0(Males) ?>6.0(Females) Non HDL Cholesterol 227(H) <160 mg/dL 12/31/2023 10:46 [facility] Comment:Note that therapeuti c goals will differ between patients based on cardiac risk factors and current medical therapy. Blood VENOUS BLOOD / Unknown Venipuncture / Unknown 12/31/2023 8:56 EDT 12/31/2023 10:01 EDT Maite Bright [facility] CHEMISTRY & BLOOD GAS ORDERABLES Final Result Performing Organization Address City/[facility]/ZIP Co de Phone Number [facility] [address] [place] [address] * TSH (12/31/2023 8:56 EDT) TSH 1.46 0.47 - 4.68 mIU/L 12/31/2023 11:22 EDT [facility] Blood VENOUS BLOOD / Unknown Venipuncture / Unknown 12/31/2023 8:56 EDT 12/31/2023 10:01 EDT Narrative [facility] - 12/31/2023 11:22 EDT The results of this assay can be falsely lowered due to the consumption of Biotin. Maite Bright [facility] CHEMISTRY & BLOOD GAS ORDERABLES Final Result Performing Organization Address [facility] Co de Phone Number [facility] [address] [place] [address] documented in this encounter Visit Diagnoses Diagnosis Acquired hypothyroidism Unspecified hypothyroidism Screening, lipid Screening for lipoid disorders Essential hypertension Unspecified essential hypertension documented in this encounter Care Teams Forepart Rounder Relationship Specialty Start Date End Date Maite Bright DNP [address] [place] [address] PCP - General 11/27/15 documented as of this encounter
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
--- OUTSIDE RECORDS SUMMARY | 2024-04-22 09:18 | XMS_ITS | Encounter Summary ---
Author Organization [facility] Address [address] [place] [address] Care Team Providers Care Belt Molder Name Role Phone Maite Bright DNP Primary Care Provider [phone] Reason for Referral * Radiology Services (Routine/Next Available) - Authorization Not Required Specialty Diagnoses / Procedures Referred By Contac t Referred To Contact Diagnoses Mass of upper outer quadrant of left breast Procedures US BREAST LIMITED LEFT Mariela Clayton NP Phone: tel: [place]: [facility] Referral ID Status Reason Start Date Expiration Date Visits Requested Visits Authorized [id number] Authorization Not Required 09/25/2022 1 1 * Radiology Services (Routine/Next Available) - Authorization Not Required Specialty Diagnoses / Procedures Referred By Contac t Referred To Contact Diagnoses Mass of upper outer quadrant of left breast Procedures MA BREAST DIAGNOSTIC ALANNA LEFT Mariela Clayton NP Phone: tel: fax: [facility] Referral ID Status Reason Start Date Expiration Date Visits Requested Visits Authorized [id number] Authorization Not Required 09/25/2022 1 1 Reason for Visit * Reason Comments Breast Mass Encounter Details Date Type Department Care Team ([facility] Contact Info) Description 09/25/2022 10:30 EDT Office Visit [facility] [address] [address] Mariela Clayton, [address] [place] [address] Mass of upper outer quadrant of left breast (Primary Dx) Social History Tobacco Use Types Packs/Day Years Used Date Smoking Tobacco: Never Smokeless Tobacco: Never Tobacco Cessation:Counseling Given: Not Answered Alcohol Use Standard Drinks/Week Comments Yes 0 [...] place to sleep or slept in a fdc (including now)? No 06/03/2022 Interpersonal Safety Answer [...] on file documented as of this encounter Last Filed Vital Signs Vital Sign Reading Time Taken Comments Blood Pressure 142/80 09/25/2022 1011 EDT Pulse 72 09/25/2022 1011 EDT Temperature - - Respiratory Rate - - Oxygen Saturation 98% 09/25/2022 1011 EDT Inhaled Oxygen Concentration - - Weight 97.8 kg (215 lb 9.6 oz) 09/25/2022 1011 E DT Height 163.8 cm (5' 4.49) 09/25/2022 1011 EDT Body Mass Index 36.45 09/25/2022 1011 EDT documented in this encounter Progress Notes * Mariela Clayton, LANE - 09/25/2022 1030 EDT Images from the original note were not included. [facility] [place] Subjective: Chief Complaint(s): Breast Mass Assessment & Plan: Meli was seen today for breast mass. Diagnoses and all orders for this visit: Mass of upper outer quadrant of left breast - MA BREAST DIAGNOSTIC ALANNA LEFT; Future - US BREAST LIMITED LEFT; Future Return if symptoms worsen or fail to improve. HPI: Pt c/o nontender left breast mass noted incidentally 2 weeks ago. No change to mass since then. Denies rash/skin change, nipple discharge, warmth. Recent normal mammo in June 2022. No family h/o breast, ovarian, prostate, colon cancer in 1st degree relative. I have reviewed patient's tobacco history: reports that she has never smoked. She has never used smokeless tobacco. Data reviewed this visit: problem list/past medical history, current medications, allergies and recent imaging ROS: A review of systems was conducted and pertinent findings are in the HPI Objective: Examination: Vitals: BP (!) 142/80 (BP Cuff Location: Right arm, BP Patient Position: Sitting, BP Cuff Sizes: Adult, large) Pulse 72 Ht 163.8 cm (64.49) Wt 97.8 kg (215 lb 9.6 oz) SpO2 98% BMI 36.45 kg/m?? Body mass index is 36.45 kg/m??. Physical Exam Vitals reviewed. Constitutional: Appearance: Normal appearance. Chest: Breasts: Right: Normal. No mass, nipple discharge, skin change or tenderness. Left: Mass (1.2cm mobile, nontender, oval mass of left breast at 11:00 2cm from areolar border) present. No nipple discharge, skin change or tenderness. Lymphadenopathy: Cervical: No cervical adenopathy. Upper Body: Right upper body: No supraclavicular, axillary or pectoral adenopathy. Left upper body: No supraclavicular, axillary or pectoral adenopathy. Skin: General: Skin is warm and dry. Findings: No rash. Neurological: Mental Status: She is alert. Mariela Clayton APRN, PROCESS CHECKER-BC documented in this encounter Plan of Treatment Upcoming Encounters Date Type Department Care Team (Late st Contact Info) Description 07/07/2024 10:[address] [facility] [address] [address] Maite Bright DNP [address] [place] [id number] documented as of this encounter Results * US BREAST LIMITED LEFT (10/14/2022 10:47 EDT) Anatomical Region Laterality Modality Breast Left Ultrasound 10/14/2022 14:2 7 EDT Impressions 10/14/2022 14:27 [...] needed we will contact your patient directly. [id number] Narrative 10/14/2022 14:27 EDT US BREAST LIMITED [...] sonographic abnormality was detected. us Mariela Clayton NP IMG US ORDERABLES Final Res ult * MA BREAST DIAGNOSTIC ALANNA LEFT (10/14/2022 [...] needed we will contact your patient directly. [id number] Narrative 10/14/2022 14:27 EDT US BREAST LIMITED [...] sonographic abnormality was detected. us Mariela Clayton SOFTWARE APPLICATIONS DESIGNER IMG MAMMOGRAPHY ORDERABLES Final Result documented in this encounter Visit Diagnoses Diagnosis Mass of upper outer quadrant of left breast- Primary Mass of upper outer quadrant of left breast Mass of upper outer quadrant of left breast documented in this encounter Care Teams Belt Molder Relationship Specialty Start Date End Date Maite Bright DNP [address] [place] [id number] PCP - General 11/27/15 documented as of this encounter
--- OUTSIDE RECORDS SUMMARY | 2024-04-22 09:18 | XMS_ITS | Encounter Summary ---
Author Organization [facility] Address [address] [place] [address] Care Team Providers Care Chief Deputy Coroner Name Role Phone Maite Bright DNP Primary Care Provider [phone] Reason for Visit * Reason Onset Date Comments Breast Mass 09/05/2022 Encounter Details Date Type Department Care Team (Late st Contact Info) Description 09/05/2022 Telephone [facility] [address] [address] Maite Bright DNP [address] [place] [address] Breast Mass Social History Tobacco Use Types Packs/Day Years [...] place to sleep or slept in a alf (including now)? No 06/03/2022 Interpersonal Safety Answer [...] encounter Miscellaneous Notes * Telephone Encounter - Katarzyna Walton - 09/05/2022 1540 EDT Pt called reporting that she found a lump in her left breast. Approx 2 inches above the nipple, towards the left side. Pt reports that it feels ovoid, size of a large pea. No tenderness and no pain. Pt reports that it feels hard under her skin, and it moves slightly. Pt just discovered it today. Pt checks her breasts regularly on her own. Please advise documented in this encounter Plan of Treatment Upcoming Encounters Date Type Department Care Team (Late st Contact Info) Description 07/07/2024 10:15 EDT Office Visit [facility] [address] [place] [address] Maite Bright DNP [address] [place] [address] documented as of this encounter Visit Diagnoses Not on filedocumented in this encounter Care Teams Chief Deputy Coroner Relationship Specialty Start Date End Date Maite Bright DNP [address] [place] [phone] PCP - General 11/27/15 documented as of this encounter
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
--- OUTSIDE RECORDS SUMMARY | 2024-04-22 09:18 | XMS_ITS | Encounter Summary ---
Author Organization [facility] Address [address] [place] [address] Care Team Providers Care Sales Center Associate Name Role Phone Maite Bright DNP Primary Care Provider [phone] Reason for Referral * Radiology Services (Routine/Next Available) - Authorization Not Required Specialty Diagnoses / Procedures Referred By Contac t Referred To Contact Diagnoses Chronic midline low back pain without sciatica Procedures XR LUMBAR SPINE 2-3 VIEWS Maite Bright DNP Phone: tel: fax: [facility] [place] Referral ID Status Reason Start Date Expiration Date Visits Requested Visits Authorized [id number] Authorization Not Required 12/12/2022 1 1 * PT/OT/ST (Routine/Next Available) - Specialty Report Received Specialty Diagnoses / Procedures Referred By Contac t Referred To Contact Diagnoses Degenerative disc disease, cervical Cervical radiculopathy Chronic midline low back pain without sciatica Maite Bright DNP Phone: tel: fax: Referral ID Status Reason Start Date Expiration Date Visits Requested Visits Authorized [id number] Specialty Report Received Specialty Services Required 12/12/2022 1 1 Question Answer Reason for Request: eval and treat [facility]; [place]; phone [phone] * Radiology Services (Routine/Next Available) - Authorization Not Required Specialty Diagnoses / Procedures Referred By Contac t Referred To Contact Diagnoses Degenerative disc disease, cervical Cervical radiculopathy Procedures XR CERVICAL SPINE 2-3 VIEWS Maite Bright DNP Phone: tel: fax: [facility] [place] Referral ID Status Reason Start Date Expiration Date Visits Requested Visits Authorized [id number] Authorization Not Required 12/12/2022 1 1 Reason for Visit * Reason Comments Follow-up Hypertension Encounter Details Date Type Department Care Team (Latest Contact Info) Description 12/12/2022 11:30 EDT Office Visit [facility] [address] [address] Maite Bright DNP [address] [place] [address] Essential hypertension (Primary Dx); Acquired hypothyroidism; Screening, lipid; BMI 36.0-36.9,adult; Diabetes mellitus screening; Degenerative disc disease, cervical; Cervical radiculopathy; Chronic midline low back pain without sciatica Social History Tobacco Use Types Packs/Day Years [...] place to sleep or slept in a penitentiary (including now)? No 06/03/2022 Interpersonal Safety Answer [...] Sign Reading Time Taken Comments Blood Pressure 144/80 12/12/2022 1115 EDT Pulse 90 12/12/2022 1115 EDT Temperature - - Respiratory Rate - - Oxygen Saturation 99% 12/12/2022 1115 EDT Inhaled Oxygen Concentration - - Weight 97.5 kg (215 lb) 12/12/2022 1115 EDT Height 163.8 cm (5' 4.5) 12/12/2022 1115 EDT Body Mass Index 36.33 12/12/2022 1115 EDT documented in this encounter Progress Notes * Maite Bright NP - 12/12/2022 1130 EDT [facility] [place] [facility] - Srinivas Subjective: Chief Complaint(s): Follow-up and Hypertension HPI Meli is here for follow-up of hypertension and hypothyroid. Medications: compliant with irbesartan 150 mg daily and levothyroxine 100 mcg daily. Side effects: None Home BP monitoring: Monitors regularly, typically at goal when pain is manageable. Weight change: No change Last BMP: 06/11/2022 Last TSH: 06/11/2022 Denies: chest pain, shortness of breath, edema, dizziness, syncope. Denies: Heat intolerance, cold intolerance, unexplained weight loss or weight gain, changes in hairor skin. Health concerns today: 1) Loss of sensation and weakness in left hand (thumb and all fingers except 5th finger). Decreasedgrip strength, Right hand dominant. 2) Loss of sensation/ numbness on the ball of her left foot. 3) Low back pain and she needs to crack her back to release discomfort. Self treatment ibuprofen. I have reviewed patient's tobacco history: reports that she has never smoked. She has never used smokeless tobacco. I have reviewed current problem list and current medications. Medications: Current Outpatient Medications on File Prior to Visit Medication Sig Dispense Refill ??? betamethasone dipropionate (DIPROLENE) 0.05 % ointment Apply 1 application topically 2 times daily. to eczema on body/extremities (Patient not taking: Reported on 06/11/2022) ??? CANNABIDIOL, CBD, EXTRACT ORAL ??? irbesartan (AVAPRO) 150 mg tablet TAKE 1 TABLET BY MOUTH EVERY DAY 90 Tablet 3 ??? Lactobac no.41/Bifidobact no.7 (PROBIOTIC-10 ORAL) Take by mouth. ??? levothyroxine (SYNTHROID) 100 mcg tablet TAKE 1 TABLET BY MOUTH EVERY DAY 90 Tablet 3 ??? magnesium oxide (MAG-OX) 400 mg (241.3 mg magnesium) tablet Take 1 Tablet by mouth daily. ??? MEDICAL MARIJUANA ??? NATURAL BEE POLLEN ORAL Take by mouth. ??? UNABLE TO FIND Multivitamin one tablet , Sig: orally daily No current facility-administered medications on file prior to visit. Review of Systems Respiratory: Negative for cough and shortness of breath. Cardiovascular: Negative for chest pain and palpitations. Musculoskeletal: Positive for back pain, neck pain and neck stiffness. Neurological: Positive for numbness. Negative for dizziness and light-headedness. Objective: Examination: Vitals: BP (!) 144/80 (BP Cuff Location: Right arm, BP Patient Position: Sitting, BP Cuff Sizes: Adult, large) Pulse 90 Ht 163.8 cm (64.5) Wt 97.5 kg (215 lb) SpO2 99% BMI 36.33 kg/m?? Body mass index is 36.33 kg/m??. 12/12/2022 11:15 Pain Score (from Vitals) Initial score 8 Final score 8 Location Generalized Physical Exam Vitals reviewed. Constitutional: Appearance: She is obese. Eyes: Conjunctiva/sclera: Conjunctivae normal. Cardiovascular: Rate and Rhythm: Normal rate. Heart sounds: Normal heart sounds. No murmur heard. Pulmonary: Effort: Pulmonary effort is normal. Breath sounds: Normal breath sounds. Musculoskeletal: Right wrist: No bony tenderness. Left wrist: No bony tenderness. Cervical back: Decreased range of motion. Skin: General: Skin is warm and dry. Neurological: Mental Status: She is alert. Wrist / Hand: WRIST: left. MCP AND IP JOINTS: no swelling or redness. INSPECTION: no swelling, redness or ecchymosis. RANGE OF MOTION: normal flexion and extension, normal ulnar and radial deviation. PALPATION: no bony tenderness. STRENGTH: normal strength of flexors and extensors NEUROVASCULAR EXAM: normal touch and pain sensations. HAND: left TINNEL'S SIGN: negative. PHALEN'S SIGN: negative. FIST: decreased strength. Data reviewed with patient (past results): Reviewed and/or ordered active problem list, medication list, allergies, social history, health maintenance tests Assessment & Plan: Meli was seen today for follow-up and hypertension. Diagnoses and all orders for this visit: Essential hypertension Blood pressure reviewed, slightly above goal, likely from current level of pain and recent ibuprofen use. Continue irbesartan 150 mg daily and continue home blood pressure monitoring. Let me know if your blood pressure is consistently greater than 140/80. Eating a low-salt, Mediterranean diet and regular exercise along with weight loss can reduce your blood pressure as well. Annual metabolic panel ordered to be done prior to next appointment. - COMPREHENSIVE METABOLIC PANEL (CMP); Future Acquired hypothyroidism Annual TSH ordered to be done prior to next appointment. Continue levothyroxine 100 mcg daily - TSH; Future Screening, lipid - LIPID PROFILE (INCLUDES CHOLESTEROL, TRIGLYCERIDES, HDL, LDL); Future BMI 36.0-36.9,adult - COMPREHENSIVE METABOLIC PANEL (CMP); Future - LIPID PROFILE (INCLUDES CHOLESTEROL, TRIGLYCERIDES, HDL, LDL); Future Diabetes mellitus screening - COMPREHENSIVE METABOLIC PANEL (CMP); Future Degenerative disc disease, cervical The decreased sensation she experiences correlates with potential degenerative disc disease and C6-C7. I have ordered an x-ray and referred her to therapy in [place]. She will reach out if her symptoms persist or worsen. If so, consider nerve conduction studies. - XR CERVICAL SPINE 2-3 VIEWS; Future - AMB CONS/FOLLOW UP PHYSICAL THERAPY - OUTSIDE OF NETWORK; Future Cervical radiculopathy - XR CERVICAL SPINE 2-3 VIEWS; Future - AMB CONS/FOLLOW UP PHYSICAL THERAPY - OUTSIDE OF NETWORK; Future Chronic midline low back pain without sciatica An x-ray of her lumbar spine has been ordered. Decree sensation correlates with potential degenerative disc disease and L5. She will reach out if her symptoms persist or worsen. If so, consider nerveconduction studies. - AMB CONS/FOLLOW UP PHYSICAL THERAPY - OUTSIDE OF NETWORK; Future - XR LUMBAR SPINE 2-3 VIEWS; Future Return in about 6 months (around 06/13/2023) for HTN, after results. Speech recognition software was used to complete this progress note. Typographical errors may be present. documented in this encounter Plan of Treatment Upcoming Encounters Date Type Department Care Team (Late st Contact Info) Description 07/07/2024 10:15 EDT Office Visit [facility] [address] [address] Maite Bright DNP [address] [place] [phone] Scheduled Referrals Name Type Priority Associated Diagnoses Order Schedule AMB CONS/FOLLOW UP PHYSICAL THERAPY - OUTSIDE OF NETWORK Outpatient Referral Routine/Next Available Degenerative disc disease, cervical Cervical radiculopathy Chronic midline low back pain without sciatica Expected: 12/19/2022 (Approximate), Expires: 12/13/2023 documented as of this encounter Results * XR LUMBAR SPINE 2-3 VIEWS (12/19/2022 11:14 EDT) Anatomical Region Laterality Modality Spine Computed Radiogr aphy 12/19/2022 11:5 3 EDT Impressions 12/19/2022 11:53 EDT 1. Multilevel lumbar spine degenerative disc and facet disease, more advanced at L4/5 and L5/S1. [id number] Narrative 12/19/2022 11:53 EDT INDICATION: pain;M54.50:Chronic midline low back pain without sciatica;G89.29:Chronic midline low back pain without sciatica TECHNIQUE: 2 views lumbar spine COMPARISON: None. FINDINGS: Alignment: There is a trace anterolisthesis of L5 on S1. Degenerative: Degenerative disc space narrowing and endplate osteophyte formation spans the lumbar spine. There is hypertrophic facet disease, more severe at L4/5 and L5/S1. Bone: Unremarkable. Soft Tissue: Unremarkable. Procedure Note Maury Montelongo MD - 12/19/2022 INDICATION: pain;M54.50:Chronic midline low back pain withoutsciatica;G89.29:Chronic midline low back pain without sciatica TECHNIQUE: 2 views lumbar spine COMPARISON: None. FINDINGS: Alignment: There is a trace anterolisthesis of L5 on S1. Degenerative: Degenerative disc space narrowing and endplate osteophyteformation spans the lumbar spine. There is hypertrophic facet disease,more severe at L4/5 and L5/S1. Bone: Unremarkable. Soft Tissue: Unremarkable. IMPRESSION 1. Multilevel lumbar spine degenerative disc and facet disease, moreadvanced at L4/5 and L5/S1. [id number] Maite Bright [facility] DIAGNOSTIC IMAGING ORDERABLE S Final Result * XR CERVICAL SPINE 2-3 VIEWS (12/19/2022 11:14 EDT) Anatomical Region Laterality Modality Computed Radiogr aphy 12/19/2022 11:5 4 EDT Impressions 12/19/2022 11:54 EDT 1. Multilevel cervical spine degenerative disc and facet disease spanning the cervical spine. [id number] Narrative 12/19/2022 11:54 EDT INDICATION: DDD;M50.30:Degenerative disc disease, cervical;M54.12:Cervical radiculopathy TECHNIQUE: 3 views cervical spine COMPARISON: 02/15/2016 FINDINGS: Alignment: There is a trace anterolisthesis of C3 on C4. The cervical spine is otherwise well aligned. Degenerative: Degenerative disc space narrowing and endplate osteophyte formation spans the cervical spine. Also there is diffuse hypertrophic facet disease. Bone: Unremarkable. Soft Tissue: Unremarkable. Procedure Note Maury Montelongo MD - 12/19/2022 INDICATION: DDD;M50.30:Degenerative disc disease, cervical;M54.12:Cervicalradiculopathy TECHNIQUE: 3 views cervical spine COMPARISON: 02/15/2016 FINDINGS: Alignment: There is a trace anterolisthesis of C3 on C4. The cervicalspine is otherwise well aligned. Degenerative: Degenerative disc space narrowing and endplate osteophyteformation spans the cervical spine. Also there is diffuse hypertrophicfacet disease. Bone: Unremarkable. Soft Tissue: Unremarkable. IMPRESSION 1. Multilevel cervical spine degenerative disc and facet disease spanningthe cervical spine. [id number] Maite Bright DNP IM DIAGNOSTIC IMAGING ORDERABLE S Final Result documented in this encounter Visit Diagnoses Diagnosis Essential hypertension- Primary Unspecified essential hypertension Acquired hypothyroidism Unspecified hypothyroidism Screening, lipid Screening for lipoid disorders BMI 36.0-36.9,adult Body Mass Index 36.0-36.9, adult Diabetes mellitus screening Screening for diabetes mellitus Degenerative disc disease, cervical Degeneration of cervical intervertebral disc Cervical radiculopathy Brachial neuritis or radiculitis nos Chronic midline low back pain without sciatica Degenerative disc disease, cervical Degeneration of cervical intervertebral disc Cervical radiculopathy Brachial neuritis or radiculitis nos Chronic midline low back pain without sciatica documented in this encounter Care Teams Sales Center Associate Relationship Specialty Start Date End Date Maite Bright DNP [address] [place] [phone] PCP - General 11/27/15 documented as of this encounter
--- OUTSIDE RECORDS SUMMARY | 2024-04-22 09:18 | XMS_ITS | Encounter Summary ---
Author Organization Health system Address [address] [place] [id number] Care Team Providers Care Geomagnetist Name Role Phone Maite Bright DNP Primary Care Provider [phone] Reason for Referral * Radiology Services (Routine/Next Available) - Authorization Not Required Specialty Diagnoses / Procedures Referred By Contac t Referred To Contact Diagnoses Mass of upper outer quadrant of left breast Procedures US BREAST LIMITED LEFT Mariela Clayton NP Phone: tel: [place] [facility] [place]erral ID Status Reason Start Date Expiration Date Visits Requested Visits Authorized [id number] Authorization Not Required 09/25/2022 1 1 Reason for Visit * Radiology Services (Routine/Next Available) - Authorization Not Required Specialty Diagnoses / Procedures Referred By Contac t Referred To Contact Diagnoses Mass of upper outer quadrant of left breast Procedures US BREAST LIMITED LEFT Mariela Clayton NP Phone: tel: fax[place] [facility]erral ID Status Reason Start Date Expiration Date Visits Requested Visits Authorized [id number] Authorization Not Required 09/25/2022 1 1 Encounter Details Date Type Department Care Team (Latest Contact Info) Description 10/14/2022 10:00 EDT - 10/14/2022 23:59 EDT Hospital Encounter [facility] Ultrasound [address] [place] [address] Mass of upper outer quadrant of left [...] place to sleep or slept in a long term (including now)? No 06/03/2022 Interpersonal Safety Answer [...] Info) Description 07/07/2024 10:15 EDT Office Visit [facility] [address] [phone] Maite Bright [address] [address] documented as of this encounter Procedures Procedure Name Priority Date/Time Associated Diagnosis Comments US BREAST LIMITED LEFT Routine 10/14/2022 10:47 EDT Mass of upper outer quadrant of left breast documented in this encounter Results * US BREAST LIMITED [...] annual bilateral screening mammogram in June 2023.. Dr ??Олег Sheth discussed the findings and recommendations directly with the patient at the time of the examination. OVERALL ASSESSMENT: ??BI-RADS Category 2: Benign These results will be communicated to your patient via a lay letter from Radiology. If any additional imaging is needed we will contact your patient directly. [id number] Narrative 10/14/2022 14:27 EDT US BREAST LIMITED [...] sonographic abnormality was detected. us Mariela Clayton RN SUPPORT SERVICES IMG US ORDERABLES Final Res ult documented in this encounter Visit Diagnoses Diagnosis Mass of upper outer quadrant of left breast documented in this encounter Care Teams Geomagnetist Relationship Specialty Start Date End Date Maite Bright DNP [address] [place] [id number] PCP - General 11/27/15 documented as of this encounter
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
--- OUTSIDE RECORDS SUMMARY | 2024-04-22 09:18 | XMS_ITS | Encounter Summary ---
Author Organization [facility] Address [address] [place] [address] Care Team Providers Care Student Services Counselor Name Role Phone Maite Bright DNP Primary Care Provider [phone] Reason for Visit * Reason Comments Medications Refill Encounter Details Date Type Department Care Team (Late st Contact Info) Description 11/25/2022 Refill [facility] [address] [address] Maite Bright DNP [address] [place] [address] Medications Refill Social History Tobacco Use [...] BY MOUTH EVERY DAY 90 Tablet 3 11/25/2022 4 documented in this encounter Miscellaneous Notes * Telephone Encounter - Sarah Barron RN - 11/25/2022 1207 EDT MALI - 06/11/22 NOV - 12/12/22 last TSH - 06/11/22 Rx(s) escribed to pharmacy. * Telephone Encounter - Sarah Barron RN - 11/25/2022 0931 EDT . documented in this encounter Plan of Treatment Upcoming Encounters Date Type Department Care Team (Late st Contact Info) Description 07/07/2024 10:15 EDT Office Visit [address] [phone] Maite Bright DNP [address] [place] [phone] documented as of this encounter Visit Diagnoses Diagnosis Acquired hypothyroidism- Primary Unspecified hypothyroidism documented in this encounter Discontinued Medications Medication Sig Discontinue Reason Start Date End Da te levothyroxine (SYNTHROID) 100 mcg tabletIndications:Acquired hypothyroidism TAKE 1 TABLET BY MOUTH EVERY DAY 12/03/2021 11/25/2022 documented as of this encounter Care Teams Student Services Counselor Relationship Specialty Start Date End Date Maite Bright DNP [address] [place] [address] PCP - General 11/27/15 documented as of this encounter
--- OUTSIDE RECORDS SUMMARY | 2024-04-22 09:18 | XMS_ITS | Encounter Summary ---
Author Organization [facility] Address [address] [place] [address] Care Team Providers Care Test Eng Name Role Phone Maite Bright DNP Primary Care Provider [phone] Reason for Referral * Radiology Services (Routine/Next Available) - Authorization Not Required Specialty Diagnoses / Procedures Referred By Contac t Referred To Contact Diagnoses Breast pain, right Procedures US BREAST LIMITED RIGHT Maite Bright DNP [address] [place] [address] Phone: tel: fax: [facility] Referral ID Status Reason Start Date Expiration Date Visits Requested Visits Authorized [id number] Authorization Not Required 4 1 1 Reason for Visit * Radiology Services (Routine/Next Available) - Authorization Not Required Specialty Diagnoses / Procedures Referred By Contac t Referred To Contact Diagnoses Breast pain, right Procedures US BREAST LIMITED RIGHT Maite Bright DNP [address] [place] [address] Phone: tel: fax: [facility] Referral ID Status Reason Start Date Expiration Date Visits Requested Visits Authorized [id number] Authorization Not Required 4 1 1 Encounter Details Date Type Department Care Team (Latest Contact Info) Description 01/30/2024 9:54 EST - 01/30/2024 23:59 EST Hospital Encounter [facility] Ultrasound [address] [place], [place] [phone] Breast pain, right Discharge Disposition: Home or Self Care Social [...] place to sleep or slept in a long-term (including now)? No 06/03/2022 Interpersonal Safety Answer [...] Office Visit [facility] [address] [address] Maite Bright [address] [address] documented as of this encounter Procedures Procedure Name Priority Date/Time Associated Diagnosis Comments US BREAST LIMITED RIGHT Routine 01/30/2024 10:49 EST Breast pain, right documented in this encounter Results * US [...] were discussed with the patient by the laborer steel handling shortly after completion of the examination. OVERALL ASSESSMENT: BI-RADS 2: Benign. These results will be communicated to the patient via a lay letter from Radiology. [address] [place] [address] [id number] Narrative 01/30/2024 13:24 EST MA BREAST DIAGNOSTIC [...] architectural distortion is identified. Resulting Agency Comment [id number] us Maite Bright DNP [facility] US ORDERABLES Final Result documented in this encounter Visit Diagnoses Diagnosis Breast pain, right Mastodynia documented in this encounter Care Teams Test Eng Relationship Specialty Start Date End Date Maite Bright DNP [address] [place] [id number] PCP - General 11/27/15 documented as of this encounter
--- OUTSIDE RECORDS SUMMARY | 2024-04-22 09:18 | XMS_ITS | Encounter Summary ---
Author Organization [facility] Address [address] [place] [address] Care Team Providers Care Process Tech Name Role Phone Maite Bright DNP Primary Care Provider [phone] Reason for Visit * Reason Comments Medications Refill Encounter Details Date Type Department Care Team (Late st Contact Info) Description 12/28/[address] [facility] [address] [address] Maite Bright DNP [address] [place] [phone] Medications Refill Social History Tobacco Use Types [...] Description 07/07/2024 10:[address] [facility] [address] [place] [address] Maite Bright DNP [address] [place] [address] documented as of this encounter Visit Diagnoses Diagnosis Acquired hypothyroidism Unspecified hypothyroidism documented in this encounter Care Teams Process Tech Relationship Specialty Start Date End Date Maite Bright DNP [address] [place] [address] PCP - General 11/27/15 documented as of this encounter
--- OUTSIDE RECORDS SUMMARY | 2024-04-22 09:18 | XMS_ITS | Encounter Summary ---
Author Organization [facility] Address [address] [place] [address] Care Team Providers Care Mat Gauger Name Role Phone Maite Bright DNP Primary Care Provider [phone] Reason for Referral * Radiology Services (Routine/Next Available) - Authorization Not Required Specialty Diagnoses / Procedures Referred By Contac t Referred To Contact Diagnoses Chronic midline low back pain without sciatica Procedures XR LUMBAR SPINE 2-3 VIEWS Maite Bright DNP Phone: tel: fax: [facility] [place] Referral ID Status Reason Start Date Expiration Date Visits Requested Visits Authorized [id number] Authorization Not Required 12/12/2022 1 1 * Radiology Services (Routine/Next Available) - Authorization Not Required Specialty Diagnoses / Procedures Referred By Contac t Referred To Contact Diagnoses Degenerative disc disease, cervical Cervical radiculopathy Procedures XR CERVICAL SPINE 2-3 VIEWS Maite Bright DNP Phone: tel: fax: [facility] [place] Referral ID Status Reason Start Date Expiration Date Visits Requested Visits Authorized [id number] Authorization Not Required 12/12/2022 1 1 Reason for Visit * Radiology Services (Routine/Next Available) - Authorization Not Required Specialty Diagnoses / Procedures Referred By Contac t Referred To Contact Diagnoses Degenerative disc disease, cervical Cervical radiculopathy Procedures XR CERVICAL SPINE 2-3 VIEWS Matie Bright DNP Phone: tel: fax: [facility] [place] Referral ID Status Reason Start Date Expiration Date Visits Requested Visits Authorized [id number] Authorization Not Required 12/12/2022 1 1 Encounter Details Date Type Department Care Team (Latest Contact Info) Description 12/19/2022 10:57 EDT - 12/19/2022 23:59 EDT Hospital Encounter [facility] [place] Xray [address] [place] [address] Degenerative disc disease, cervical; Cervical radiculopathy; Chronic midline low back pain without sciatica Discharge Disposition: Home or Self Care Social [...] BY MOUTH EVERY DAY 90 Tablet 3 3 12/01/19 24 documented as of this encounter Discharge Disposition Disposition Code Departure Means Destination Home or Self Care documented in this encounter Plan of Treatment Upcoming Encounters Date Type Department Care Team (Late st Contact Info) Description 07/07/2024 10:15 EDT Office Visit [facility] Family Medicine [facility] [address] [place] [address] Maite Bright DNP [address] [place] [address] documented as of this encounter Procedures Procedure Name Priority Date/Time Associated Diagnosis Comments XR LUMBAR SPINE 2-3 VIEWS Routine 12/19/2022 11:14 EDT Chronic midline low back pain without sciatica XR CERVICAL SPINE 2-3 VIEWS Routine 12/19/2022 11:14 EDT Degenerative disc disease, cervical Cervical radiculopathy documented in this encounter Results * XR LUMBAR SPINE 2-3 VIEWS (12/19/2022 11:14 EDT) Anatomical Region Laterality Modality Spine Computed Radiogr aphy 12/19/2022 11:5 3 EDT Impressions 12/19/2022 11:53 EDT 1. Multilevel lumbar spine degenerative disc and facet disease, more advanced at L4/5 and L5/S1. [id number] Narrative 12/19/2022 11:53 EDT INDICATION: pain;M54.50:Chronic midline [...] facet disease, moreadvanced at L4/5 and L5/S1. [id number] Maite Bright DNP IMG DIAGNOSTIC IMAGING ORDERABLE S Final Result * XR CERVICAL SPINE 2-3 VIEWS (12/19/2022 11:14 EDT) Anatomical Region Laterality Modality Computed Radiogr aphy 12/19/2022 11:5 4 EDT Impressions 12/19/2022 11:54 EDT 1. Multilevel cervical spine degenerative disc and facet disease spanning the cervical spine. [id number] Narrative 12/19/2022 11:54 EDT INDICATION: DDD;M50.30:Degenerative disc [...] disc and facet disease spanningthe cervical spine. [id number] Maite Bright DNP IM DIAGNOSTIC IMAGING ORDERABLE S Final Result documented in this encounter Visit Diagnoses Diagnosis Degenerative disc disease, cervical Degeneration of cervical intervertebral disc Cervical radiculopathy Brachial neuritis or radiculitis nos Chronic midline low back pain without sciatica documented in this encounter Care Teams Mat Gauger Relationship Specialty Start Date End Date Maite Bright DNP [address] [place] [address] PCP - General 11/27/15 documented as of this encounter
--- OUTSIDE RECORDS SUMMARY | 2024-04-22 09:18 | XMS_ITS | Encounter Summary ---
Author Organization [facility] Address [address] [place] [address] Care Team Providers Care Airplane Patrol Pilot Name Role Phone Maite Bright DNP Primary Care Provider [phone] Reason for Visit * Reason Comments Medications Refill Encounter Details Date Type Department Care Team (Late st Contact Info) Description 04/21/2024 Refill [facility] [address] [address] Maite Bright DNP [address] [place] [address] Medications Refill Social History Tobacco Use [...] place to sleep or slept in a correction (including now)? No 06/03/2022 Interpersonal Safety Answer [...] Date End Date irbesartan (AVAPRO) 150 mg tabletIndications:E ssential hypertension TAKE 1 TABLET BY MOUTH EVERY DAY 90 Tablet 3 04/21/2024 documented in this encounter Miscellaneous Notes * Telephone Encounter - Marcelina Etienne RN - 04/21/2024 0850 EST Medication Requested: Irbesartan 150mg Last OV: 12/31/2023 Next OV: 07/07/2024 Last Refill (If required): 04/09/2023 Last Labs (BMP/CMP/LIPID/TSH) : 12/31/2023 Pharmacy Of Choice: [facility]. documented in this encounter Plan of Treatment Upcoming Encounters Date Type Department Care Team (Late st Contact Info) Description 07/07/2024 10:15 EDT Office Visit [facility] [address] [address] Maite Bright DNP [address] [place], [place] [phone] documented as of this encounter Visit Diagnoses Diagnosis Essential hypertension- Primary Unspecified essential hypertension documented in this encounter Discontinued Medications Medication Sig Discontinue Reason Start Date End Da te irbesartan (AVAPRO) 150 mg tabletIndications:Maci esteban hypertension TAKE 1 TABLET BY MOUTH EVERY DAY 04/09/2023 04/21/2024 documented as of this encounter Care Teams Airplane Patrol Pilot Relationship Specialty Start Date End Date Maite Bright DNP [address] [place] [address] PCP - General 11/27/15 documented as of this encounter
--- OUTSIDE RECORDS SUMMARY | 2024-04-22 09:19 | XMS_ITS | Encounter Summary ---
Author Organization [facility] Address [address] [place] [id number] Care Team Providers Care Fleet Driver Name Role Phone Maite Bright DNP Primary Care Provider [phone] Reason for Referral * Radiology Services (Routine/Next Available) - Authorization Not Required Specialty Diagnoses / Procedures Referred By Tristen taveras Referred To Contact Diagnoses Encounter for screening mammogram for malignant neoplasm of breast Procedures MA BREAST SCREENING ALANNA BILATERAL Maite Bright DNP Phone: tel: fax: [facility] [place] Referral ID Status Reason Start Date Expiration Date Visits Requested Visits Authorized [id number] Authorization Not Required 06/06/2022 1 1 Reason for Visit * Radiology Services (Routine/Next Available) - Authorization Not Required Specialty Diagnoses / Procedures Referred By Tristen taveras Referred To Contact Diagnoses Encounter for screening mammogram for malignant neoplasm of breast Procedures MA BREAST SCREENING ALANNA BILATERAL Maite Bright DNP Phone: tel: fax: [facility] [place] Referral ID Status Reason Start Date Expiration Date Visits Requested Visits Authorized [id number] Authorization Not Required 06/06/2022 1 1 Encounter Details Date Type Department Care Team (Latest Contact Info) Description 06/10/2022 13:32 EDT - 06/10/2022 23:59 EDT Hospital Encounter [facility] Mamm[place] [address] [place], [place] [id number] Encounter for screening mammogram for malignant neoplasm [...] tablet Take 1 Tablet by mouth daily. NATURAL BEE POLLEN ORAL Take by mouth. [...] Description 07/07/2024 10:15 EDT Office Visit [facility] Family Medicine [address] [address] Maite Bright DNP [address] [place] [address] documented as of this encounter Procedures Procedure Name Priority Date/Time Associated Diagnosis Comments MA BREAST SCREENING ALANNA BILATERAL Routine 06/10/2022 14:18 EDT Encounter for screening mammogram for malignant neoplasm of breast documented in this encounter Results * MA BREAST SCREENING ALANNA BILATERAL (06/10/2022 14:18 EDT) Anatomical Region Laterality Modality Breast Bilateral Mammography 06/11/2022 15:4 5 EDT Impressions 06/11/2022 15:45 EDT Negative, no evidence of malignancy. RECOMMENDATION: Routine screening mammography is recommended. OVERALL ASSESSMENT: BI-RADS 1: Negative These results will be communicated to your patient via a lay letter from Radiology. If any additional imaging is needed we will contact your patient directly. Narrative 06/11/2022 15:45 EDT MA BREAST SCREENING ALANNA BILATERAL ??06/10/2022 2:10 PM History: BREAST SCREENING; BREAST SCREENING Comparison: ??Comparison has been made to previous images. Technique: Routine 3D tomosynthesis with synthesized 2D views with CAD Bilateral Breast Composition: The breast tissue is almost entirely fatty. Bilateral Breast Findings: ??No significant masses, calcifications or other abnormalities are seen. Procedure Note Jeff Soler MD - 06/11/2022 MA BREAST SCREENING ALANNA BILATERAL 06/10/2022 2:10 PM History: BREAST SCREENING; BREAST SCREENING Comparison: Comparison has been made to previous images. Technique: Routine 3D tomosynthesis with synthesized 2D views with CAD Bilateral Breast Composition: The breast tissue is almost entirely fatty. Bilateral Breast Findings: No significant masses, calcifications or otherabnormalities are seen. IMPRESSION Negative, no evidence of malignancy. RECOMMENDATION: Routine screening mammography is recommended. OVERALL ASSESSMENT: BI-RADS 1: Negative These results will be communicated to your patient via a lay letter fromRadiology. If any additional imaging is needed we will contact yourpatient directly. Maite Bright DNP IM MAMMOGRAPHY ORDERABLES Final Result documented in this encounter Visit Diagnoses Diagnosis Encounter for screening mammogram for malignant neoplasm of breast Other screening mammogram documented in this encounter Care Teams Fleet Driver Relationship Specialty Start Date End Date Maite Bright DNP [address] [place] [address] PCP - General 11/27/15 documented as of this encounter
--- OUTSIDE RECORDS SUMMARY | 2024-04-22 09:19 | XMS_ITS | Encounter Summary ---
Author Organization [facility] Address [address] [place] [address] Care Team Providers Care Shellfish Shucker Name Role Phone Maite Bright DNP Primary Care Provider Encounter Details Date Type Department Care Team (Late st Contact Info) Description 10/13/2017 Historical Results Only [facility] - Main [address] [phone] Maite Bright DNP [address] [place], [place] [phone] Social History Tobacco Use Types Packs/Day Years Used Date Smoking Tobacco: Never Alcohol Use Standard Drinks/Week Comments Yes 0 (1 standard drink = 0.6 oz pur e alcohol) Comments Unknown Sex and Gender Information Value Date Recorded Sex Assigned at Female 01/30/2024 9:50 EST Legal Sex Female 17:44 EST Gender Identity Female 01/30/2024 9:50 EST Sexual Orientation Not on file documented as of this encounter Plan of Treatment Upcoming Encounters Date Type Department Care Team (Late st Contact Info) Description 07/07/2024 10:15 EDT Office Visit [facility] [address] [address] Maite Bright DNP [address] [place], [place] [phone] documented as of this encounter Procedures Procedure Name Priority Date/Time Associated Diagnosis Comments T4 FREE Routine 10/13/2017 11:28 EDT documented in this encounter Results * T4 FREE (10/13/2017 11:28 EDT) FREE T4 - [facility] 1.31 0.78 - 2.19 ng/dl 10/13/2017 13:51 EDT [facility] 10/13/2017 11:2 8 EDT 10/13/2017 11:28 EDT Narrative [facility] - 10/13/2017 13:51 EDT Does PT Have a Latex Allergy? NO Maite Bright DNP CHEMISTRY & BLOOD GAS ORDERABLES Final Result [facility] documented in this encounter Visit Diagnoses Not on filedocumented in this encounter Care Teams Shellfish Shucker Relationship Specialty Start Date End Date Maite Bright DNP [address] [place] [address] PCP - General 11/27/15 documented as of this encounter
--- OUTSIDE RECORDS SUMMARY | 2024-04-22 09:19 | XMS_ITS | Encounter Summary ---
Author Organization [facility] Address [address] [place] [address] Care Team Providers Care Bulk Delivery Driver Name Role Phone Maite Bright DNP Primary Care Provider [phone] Reason for Referral * Radiology Services (Routine/Next Available) - Authorization Not Required Specialty Diagnoses / Procedures Referred By Contac t Referred To Contact Diagnoses Hip pain Procedures XR HIP LEFT 2-3 VIEWS, OPTIONAL PELVIS Maite Bright DNP Phone: tel: fax: [facility] [place] Referral ID Status Reason Start Date Expiration Date Visits Requested Visits Authorized [id number] Authorization Not Required 2 1 1 * Radiology Services (Routine/Next Available) - Authorization Not Required Specialty Diagnoses / Procedures Referred By Contac t Referred To Contact Diagnoses Hip pain Procedures XR HIP RIGHT 2-3 VIEWS, OPTIONAL PELVIS Maite Bright DNP Phone: tel: fax: [facility] Referral ID Status Reason Start Date Expiration Date Visits Requested Visits Authorized [id number] Authorization Not Required 2 1 1 Reason for Visit * Radiology Services (Routine/Next Available) - Authorization Not Required Specialty Diagnoses / Procedures Referred By Contac t Referred To Contact Diagnoses Hip pain Procedures XR HIP LEFT 2-3 VIEWS, OPTIONAL PELVIS Maite Bright DNP Phone: tel: fax: [facility] Referral ID Status Reason Start Date Expiration Date Visits Requested Visits Authorized [id number] Authorization Not Required 2 1 1 Encounter Details Date Type Department Care Team (Latest Contact Info) Description 12/28/2021 13:43 EDT - 12/28/2021 23:59 EDT Hospital Encounter [facility] Xray [address] [place] [address] Hip pain Discharge Disposition: Home or Self Care Social [...] housing, medical care, and heating? Somewhat hard 12/18/2021 PHQ-2 Answer Date Recorded PHQ-2 SUBTOTAL 0 12/18/2021 Hunger Vital Sign Answer Date Recorded Within the past 12 months, y ou worried that your food would run out before you got the money to buy more. Never true 12/19/19 22 Within the past 12 months, t he food you bought just didn't last and you didn't have money to get more. Never true 12/18/2021 PRAPARE - Transportation Answer Date Re corded In the past 12 months, has l ack of transportation kept you from medical appointments or from getting medications? No 12/08 In the past 12 months, has l ack of transportation kept you from meetings, work, or from getting things needed for daily living? No 12/18/2021 Housing Stability Vital Sign Answer Mayo e Recorded In the last 12 months, was t here a time when you were not able to pay the mortgage or rent on time? No 12/18/2021 In the last 12 months, how many places have you lived? 2 12/18/2021 In the last 12 months, was t here a time when you did not have a steady place to sleep or slept in a residential (including now)? No 12/18/2021 Interpersonal Safety Answer Date Record ed How often does anyone, inclu ding family, hit, punch or physically hurt you? Never 12/18/2021 How often does anyone, inclu ding family, insult, scream, curse or threaten to hurt you? Never 12/18/2021 Comments Unknown Sex and Gender Information Value Date Recorded Sex Assigned at Female 01/30/2024 9:50 EST Legal Sex Female 17:44 EST Gender Identity Female 01/30/2024 9:50 EST Sexual Orientation Not on file COVID-19 Exposure Response Date Recorded In the last 10 days, have yo u been in contact with someone who was confirmed or suspected to have Coronavirus/COVID-19? No / Unsure 12/18/2021 11:12 EDT documented as of this encounter Medications at [...] irbesartan (AVAPRO) 150 mg tabletIndications:E ssential hypertension Take 1 Tablet by mouth daily. 90 Tablet 4 1 02/19/20 22 levothyroxine (SYNTHROID) 100 mcg tabletIndications:A cquired hypothyroidism TAKE 1 TABLET BY MOUTH EVERY DAY 90 Tablet 3 2 11/26/19 23 documented as of this encounter Discharge Disposition Disposition Code Departure Means Destination Home or Self Care documented in this encounter Miscellaneous Notes * Result Encounter Note - Maite Bright NP - 12/28/2021 1400 EDT Meli, Would you like a consult to orthopedics to discuss treatment options for your hip pain? Maite Smith NP documented in this encounter Plan of Treatment Upcoming Encounters Date Type Department Care Team (Late st Contact Info) Description 07/07/2024 10:15 EDT Office Visit [facility] Family Medicine [facility] [address] [place], [place] [phone] Maite Bright, KORINA [address] [place], [place] [phone] documented as of this encounter Procedures Procedure Name Priority Date/Time Associated Diagnosis Comments XR HIP RIGHT 2-3 VIEWS, OPTIONAL PELVIS Routine 12/28/2021 14:02 EDT Hip pain XR HIP LEFT 2-3 VIEWS, OPTIONAL PELVIS Routine 12/28/2021 14:02 EDT Hip pain documented in this encounter Results * XR HIP LEFT 2-3 VIEWS, OPTIONAL PELVIS (12/28/2021 14:02 EDT) Anatomical Region Laterality Modality Lower Extremities Left Computed Radio graphy 12/28/2021 14:1 4 EDT Impressions 12/28/2021 14:14 EDT Mild bilateral hip and sacroiliac degenerative changes. Narrative 12/28/2021 14:14 EDT XR HIP RIGHT 2-3 VIEWS XR HIP LEFT 2-3 VIEWS Signs and Symptoms/Comments: ??pain Comparison: None. FINDINGS: Bilateral Hips: Frontal and frog leg lateral views of both were performed. Bones: No acute fracture or malalignment. Degenerative changes: Mild bilateral hip and sacroiliac degenerative changes. Soft tissues: Few tiny smooth calcifications projecting adjacent to the greater trochanters, suspicious for mild calcific tendinitis or bursitis. Procedure Note Jeff Soler MD - 12/28/2021 XR HIP RIGHT 2-3 VIEWS XR HIP LEFT 2-3 VIEWS Signs and Symptoms/Comments: pain Comparison: None. FINDINGS: Bilateral Hips: Frontal and frog leg lateral views of both wereperformed. Bones: No acute fracture or malalignment. Degenerative changes: Mild bilateral hip and sacroiliac degenerativechanges. Soft tissues: Few tiny smooth calcifications projecting adjacent to thegreater trochanters, suspicious for mild calcific tendinitis orbursitis. IMPRESSION Mild bilateral hip and sacroiliac degenerative changes. Maite Bright [facility] DIAGNOSTIC IMAGING ORDERABLE S Final Result * XR HIP RIGHT 2-3 VIEWS, OPTIONAL PELVIS (12/28/2021 14:02 EDT) Anatomical Region Laterality Modality Lower Extremities Right Computed Radio graphy 12/28/2021 14:1 4 EDT Impressions 12/28/2021 14:14 EDT Mild bilateral hip and sacroiliac degenerative changes. Narrative 12/28/2021 14:14 EDT XR HIP RIGHT 2-3 VIEWS XR HIP LEFT 2-3 VIEWS Signs and Symptoms/Comments: ??pain Comparison: None. FINDINGS: Bilateral Hips: Frontal and frog leg lateral views of both were performed. Bones: No acute fracture or malalignment. Degenerative changes: Mild bilateral hip and sacroiliac degenerative changes. Soft tissues: Few tiny smooth calcifications projecting adjacent to the greater trochanters, suspicious for mild calcific tendinitis or bursitis. Procedure Note Jeff Soler MD - 12/28/2021 XR HIP RIGHT 2-3 VIEWS XR HIP LEFT 2-3 VIEWS Signs and Symptoms/Comments: pain Comparison: None. FINDINGS: Bilateral Hips: Frontal and frog leg lateral views of both wereperformed. Bones: No acute fracture or malalignment. Degenerative changes: Mild bilateral hip and sacroiliac degenerativechanges. Soft tissues: Few tiny smooth calcifications projecting adjacent to thegreater trochanters, suspicious for mild calcific tendinitis orbursitis. IMPRESSION Mild bilateral hip and sacroiliac degenerative changes. Maite Bright [facility] DIAGNOSTIC IMAGING ORDERABLE S Final Result documented in this encounter Visit Diagnoses Diagnosis Hip pain Pain in joint, pelvic region and thigh documented in this encounter Care Teams Bulk Delivery Driver Relationship Specialty Start Date End Date Maite Bright DNP [address] [place] [address] PCP - General 11/27/15 documented as of this encounter
--- OUTSIDE RECORDS SUMMARY | 2024-04-22 09:19 | XMS_ITS | Encounter Summary ---
Author Organization [facility] Address [address] [place] [address] Care Team Providers Care Telephone Order Dispatcher Name Role Phone Maite Bright DNP Primary Care Provider [phone] Reason for Visit * Reason Comments Medications Refill Encounter Details Date Type Department Care Team (Late st Contact Info) Description 02/18/2022 Refill [facility] [address] [address] Maite Bright DNP [address] [place] [phone] Medications Refill Social History Tobacco Use Types [...] place to sleep or slept in a retirement (including now)? No 12/18/2021 Interpersonal Safety Answer Date Record ed How often does anyone, inclchayo alexandra family, hit, punch or physically hurt you? Never 12/18/2021 How often does anyone, inclchayo alexandra family, insult, scream, curse or threaten [...] BY MOUTH EVERY DAY 90 Tablet 3 02/18/2022 04/09/2023 documented in this encounter Miscellaneous Notes * Telephone Encounter - Sarah Barron RN - 02/18/2022 1104 EST MALI - 12/18/21 NOV - 06/11/22 last BMP - 06/14/21 Rx(s) escribed to pharmacy. documented in this encounter Plan of Treatment Upcoming Encounters Date Type Department Care Team (Late st Contact Info) Description 07/07/2024 10:15 EDT Office Visit [facility] [address] [place] [address] documented as of this encounter Visit Diagnoses Diagnosis Essential hypertension- Primary Unspecified essential hypertension documented in this encounter Discontinued Medications Medication Sig Discontinue Reason Start Date End Da te irbesartan (AVAPRO) 150 mg tabletIndications:Maci al hypertension Take 1 Tablet by mouth daily. 11/21/2020 02/18/2022 documented as of this encounter Care Teams Telephone Order Dispatcher Relationship Specialty Start Date End Date Maite Bright DNP [address] [place], [place] [phone] PCP - General 11/27/15 documented as of this encounter
--- OUTSIDE RECORDS SUMMARY | 2024-04-22 09:19 | XMS_ITS | Encounter Summary ---
Author Organization [facility] Address [address] [place] [address] Care Team Providers Care Consumer Studies Professor Name Role Phone Maite Bright DNP Primary Care Provider [phone] Reason for Visit * Reason Comments Follow-up Hypertension Encounter Details Date Type Department Care Team (Latest Contact Info) Description 11/12/2019 10:20 EDT Office Visit [facility] [address] [phone] Maite Bright DNP [address] [place] [phone] Essential hypertension (Primary Dx); Mixed hyperlipidemia; Acquired hypothyroidism; Need for shingles vaccine Social History Tobacco Use Types Packs/Day Years Used Date Smoking Tobacco: Never Smokeless Tobacco: Never Alcohol Use Standard Drinks/Week Comments Yes 0 (1 standard drink = 0.6 oz pur e alcohol) Interpersonal Safety Answer Date Record ed Physically Hurt Never 10/10/2019 Verbally Threaten Not on file 10/10/2019 Comments Unknown Sex and Gender Information Value Date Recorded Sex Assigned at Female 01/30/2024 9:50 EST Legal Sex Female 17:44 EST Gender Identity Female 01/30/2024 9:50 EST Sexual Orientation Not on file documented as of this encounter Last Filed Vital Signs Vital Sign Reading Time Taken Comments Blood Pressure 150/90 11/12/2019 1005 EDT Pulse 72 11/12/2019 1005 EDT Temperature - - Respiratory Rate 16 11/12/2019 1005 EDT Oxygen Saturation 97% 11/12/2019 1005 EDT Inhaled Oxygen Concentration - - Weight 103.4 kg (228 lb) 11/12/2019 1005 EDT Height 163.8 cm (5' 4.49) 11/12/2019 1005 EDT Body Mass Index 38.55 11/12/2019 1005 EDT documented in this encounter Progress Notes * Maite Bright, HOSPITAL ADMISSIONS OFFICER - 11/12/2019 1020 EDT [facility] Primary Care Subjective: Chief Complaint(s): Follow-up (Hypertension) Follow HTN. Compliant with medication, irbestartan 150mg/day. No side effects reported. She is actively workingon losing weight and has had success with this. She eats a healthy diet and exercises regularly. Follow-up hypothyroidism. She is compliant with taking levothyroxine 100 mcg daily. She denies any symptoms of hypo-or hyperthyroid. Last labs 05/10/2019 I have reviewed patient's tobacco history: reports that she has never smoked. She has never used smokeless tobacco. I have reviewed current problem list and current medications. Medications: Current Outpatient Medications on File Prior to Visit Medication Sig Dispense Refill ??? betamethasone dipropionate (DIPROLENE) 0.05 % ointment Apply 1 application topically 2 times daily. to eczema on body/extremities ??? CANNABIDIOL, CBD, EXTRACT ORAL ??? irbesartan (AVAPRO) 150 mg tablet TAKE 1 TABLET BY MOUTH EVERY DAY 90 Tab 3 ??? levothyroxine (SYNTHROID) 100 mcg tablet TAKE 1 TABLET BY MOUTH EVERY DAY 90 Tab 3 ??? magnesium oxide (MAG-OX) 400 mg (241.3 mg magnesium) tablet Take 400 mg by mouth daily. ??? NATURAL BEE POLLEN ORAL Take by mouth. ??? UNABLE TO FIND Multivitamin one tablet , Sig: orally daily No current facility-administered medications on file prior to visit. Review of Systems Constitutional: Negative for chills, fatigue, fever and unexpected weight change. Respiratory: Negative for cough and shortness of breath. Cardiovascular: Negative for chest pain and leg swelling. Endocrine: Negative for cold intolerance and heat intolerance. Neurological: Negative for dizziness and headaches. Objective: Examination: GENERAL APPEARANCE: no acute distress, pleasant, cooperative. HEENT EYES:, conjunctiva clear. NECK: supple, no lymphadenopathy, no thyromegaly HEART: normal S1S2, no murmurs. LUNGS: good air entry bilaterally, clear to auscultation. SKIN: warm & dry. NEUROLOGIC EXAM: alert & oriented x3, gait normal. Vitals: BP (!) 150/90 Pulse 72 Resp 16 Ht 163.8 cm (64.49) Wt (!) 103.4 kg (228 lb) SpO2 97% BMI 38.55 kg/m?? Body mass index is 38.55 kg/m??. Physical Exam Data reviewed with patient (past results): Reviewed and/or ordered active problem list, medication list, family history, social history, health maintenance, notes from last encounter tests Assessment & Plan: 1. Essential hypertension Blood pressure above goal likely due to CRPS pain in her upper extremities. Continue irbesartan 150mg daily. Renal function and electrolytes ordered for May 2020. Continue healthy diet, exercise, weight loss. Follow-up in 6 months and as needed. - COMPREHENSIVE METABOLIC PANEL (CMP); Future 2. Mixed hyperlipidemia Fasting lipids ordered for May 2020. - COMPREHENSIVE METABOLIC PANEL (CMP); Future - LIPID PROFILE (INCLUDES CHOLESTEROL, TRIGLYCERIDES, HDL, LDL); Future 3. Acquired hypothyroidism Annual TSH ordered for May 2020. Continue levothyroxine 100 mcg daily - TSH; Future Return in about 6 months (around 05/11/2020) for HTN, labs. documented in this encounter Plan of Treatment Upcoming Encounters Date Type Department Care Team (Late st Contact Info) Description 07/07/2024 10:15 EDT Office Visit [facility] [address] [phone] Maite Bright DNP [address] [place] [phone] documented as of this encounter Visit Diagnoses Diagnosis Essential hypertension- Primary Unspecified essential hypertension Mixed hyperlipidemia Acquired hypothyroidism Unspecified hypothyroidism Need for shingles vaccine Need for prophylactic vaccination and inoculation against other viral diseases documented in this encounter Discontinued Medications Medication Sig Discontinue Reason Start Date End Da te MEDICAL MARIJUANA 2 times daily as needed. As directed Patient Stopped Taking 12/25/2015 11/12/2019 documented as of this encounter Historical Medications * This list may reflect changes made after this encounter. magnesium oxide (MAG-OX) 400 mg (241.3 mg magnesium) tablet Take 1 Tablet by mouth daily. added in this encounter Orders Immunization/Injection Count Last Ordered Date First Ordered Date SHINGRIX (ZOSTER VACCINE, RECOMBINANT) IM 1 11/12/2019 documented in this encounter Care Teams Consumer Studies Professor Relationship Specialty Start Date End Date Maite Bright DNP [address] [place] [id number] PCP - General 11/27/15 documented as of this encounter
--- OUTSIDE RECORDS SUMMARY | 2024-04-22 09:19 | XMS_ITS | Encounter Summary ---
Author Organization [facility] Address [address] [place] [address] Care Team Providers Care Obgyn Specialist Name Role Phone Maite Bright DNP Primary Care Provider [phone] Encounter Details Date Type Department Care Team (Latest Contact Info) Description 09/12/2020 Travel Social History Tobacco Use Types Packs/Day [...] Exposure Response Date Recorded In the last month, have you been in contact with someone who was confirmed or suspected to have Coronavirus / COVID-19? No / Unsure 09/12/2020 12:45 EDT documented as of this encounter Plan of Treatment Upcoming Encounters Date Type Department Care Team (Late st Contact Info) Description 07/07/2024 10:15 EDT Office Visit [facility] [address] [place] [address] Maite Bright DNP [address] [place] [address] documented as of this encounter Visit Diagnoses Not on filedocumented in this encounter Care Teams Obgyn Specialist Relationship Specialty Start Date End Date Maite Bright DNP [address] [place] [phone] PCP - General 11/27/15 documented as of this encounter
--- OUTSIDE RECORDS SUMMARY | 2024-04-22 09:19 | XMS_ITS | Encounter Summary ---
Author Organization [facility] Address [address] [place] [address] Care Team Providers Care Manager Research And Development Name Role Phone Maite Bright DNP Primary Care Provider [phone] Encounter Details Date Type Department Care Team (Latest Contact Info) Description 05/19/2020 Travel Social History Tobacco Use Types Packs/Day [...] have Coronavirus / COVID-19? No / Unsure 05/19/2020 10:12 EST documented as of this encounter Plan of Treatment Upcoming Encounters Date Type Department Care Team (Late st Contact Info) Description 07/07/2024 10:15 EDT Office Visit [facility] [address] [place] [address] Maite Bright DNP [address] [place] [address] documented as of this encounter Visit Diagnoses Not on filedocumented in this encounter Care Teams Manager Research And Development Relationship Specialty Start Date End Date Maite Bright DNP [address] [place] [phone] PCP - General 11/27/15 documented as of this encounter
--- OUTSIDE RECORDS SUMMARY | 2024-04-22 09:19 | XMS_ITS | Encounter Summary ---
Author Organization [facility] Address [address] [place] [address] Care Team Providers Care Esthetician Facialist Name Role Phone Maite Bright DNP Primary Care Provider [phone] Reason for Visit * Reason Comments Follow-up HTN Immunizations Shingrix 2 Encounter Details Date Type Department Care Team (Latest Contact Info) Description 05/19/2020 10:20 EST Office Visit [facility] [address] [address] Maite Bright DNP [address] [place] [phone] Essential hypertension (Primary Dx); Acquired hypothyroidism; Pain of right hand Social History Tobacco Use Types Packs/Day Years [...] 10:12 EST documented as of this encounter Last Filed Vital Signs Vital Sign Reading Time Taken Comments Blood Pressure 144/82 05/19/2020 1018 EST Pulse 74 05/19/2020 1018 EST Temperature - - Respiratory Rate 16 05/19/2020 1018 EST Oxygen Saturation 98% 05/19/2020 1018 EST Inhaled Oxygen Concentration - - Weight 103.1 kg (227 lb 3.2 oz) 05/19/2020 1018 EST Height 163.8 cm (5' 4.49) 05/19/2020 1018 EST Body Mass Index 38.41 05/19/2020 1018 EST documented in this encounter Progress Notes * Maite Bright APRN - 05/19/2020 1020 EST [facility] - S[facility] Subjective: Chief Complaint(s): Follow-up (HTN ) and Immunizations (Shingrix 2) HPI Follow HTN. Compliant with medication, irbestartan 150mg/day. No side effects reported. She is actively workingon losing weight and has had success with this. She eats a healthy diet and exercises regularly. ?? Follow-up hypothyroidism. She is compliant with taking levothyroxine 100 mcg daily. She denies any symptoms of hypo-or hyperthyroid. I have reviewed patient's tobacco history: reports [...] MOUTH EVERY DAY 90 Tab 3 ??? Lactobac no.41/Bifidobact no.7 (PROBIOTIC-10 ORAL) [...] medications on file prior to visit. ROS Constitutional: Negative for chills, fatigue, fever and unexpected weight change. Respiratory: Negative for cough and shortness of breath. Cardiovascular: Negative for chest pain and leg swelling. Endocrine: Negative for cold intolerance and heat intolerance. Neurological: Negative for dizziness and headaches. Objective: Examination: Vitals: BP (!) 144/82 Pulse 74 Resp 16 Ht 163.8 cm (64.49) Wt (!) 103.1 kg (227 lb 3.2 oz) SpO2 98% BMI 38.41 kg/m?? Body mass index is 38.41 kg/m??. Physical Exam GENERAL APPEARANCE:??no acute distress, pleasant, cooperative.? HEENT??EYES:, conjunctiva clear.? NECK:??supple, no lymphadenopathy, no thyromegaly ? HEART:??normal S1S2, no murmurs.? LUNGS:??good air entry bilaterally, clear to auscultation.?SKIN:??warm & dry.?? EXT: R hand - dorsal aspect with 3mm palpable, hard mobiles masses x 3 in the subcutaneous tissue, tender. No redness or warmth. 3rd finger with reduced flexion. ? NEUROLOGIC EXAM:??alert & oriented x3, gait normal.? Data reviewed with patient (past results): Reviewed and/or ordered active problem list, medication list, social history, health maintenance, notes from last encounter, lab results tests Results for orders placed or performed in visit on 05/18/20 (from the past 168 hour(s)) COMPREHENSIVE METABOLIC PANEL (CMP) Collection Time: 05/18/20 8:57 Result Value Ref Range ALBUMIN - [facility] 4.7 3.4 - 4.9 g/dL ALKALINE PHOSPHATASE - [facility] 113 38 - 126 U/L BILIRUBIN TOTAL - [facility] 1.1 0.2 - 1.3 mg/dL BUN - [facility] 11 10 - 26 mg/dL CALCIUM - [facility] 10.0 8.5 - 10.5 mg/dL Chloride 106 96 - 110 mmol/L CO2 Total 27 22 - 32 mEq/L CREATININE 0.75 0.52 - 1.04 mg/dL eGFR >60 Anion Gap 10 0 - 18 GLUCOSE - [facility] 77 70 - 100 mg/dL Potassium 4.4 3.5 - 5.0 mEq/L Sodium 143 136 - 145 mEq/L TOTAL PROTEIN - [facility] 7.6 6.2 - 8.2 gm/dL SGOT/AST - [facility] 35 14 - 36 U/L SGPT/ALT - [facility] 38 (H) 0 - 35 U/L LIPID PROFILE (INCLUDES CHOLESTEROL, TRIGLYCERIDES, HDL, LDL) Collection Time: 05/18/20 8:57 Result Value Ref Range Triglyceride 171 <150 mg/dL Cholesterol 280 (H) <200 mg/dL Chol/HDL Ratio 4.9 (H) 0.0 - 4.5 FASTING? - [facility] Yes HDL 57 40 - 60 mg/dL LDL CHOLESTEROL - [facility] 189 (H) 60 - 100 mg/dL Non HDL Cholesterol 223 mg/dl TSH Collection Time: 05/18/20 8:58 Result Value Ref Range THYROID STIM HORMONE - [facility] 2.44 0.46 - 4.68 uIU/ml The 10-year ASCVD risk score (Mike DC Jr., et al., 2013) is: 3.7% Values used to calculate the score: Age: 54 years Sex: Female Is Non- : No Diabetic: No Tobacco smoker: No Systolic Blood Pressure: 144 mmHg Is BP treated: Yes HDL Cholesterol: 57 mg/dL Total Cholesterol: 280 mg/dL Assessment & Plan: 1. Essential hypertension Continue current treatment.Renal function and electrolytes reviewed, WNL. 2. Acquired hypothyroidism TSH reviewed, WNL, continue current treatment. 3. Pain of right hand Will refer to ortho for consult. - AMB CONS/FOLLOW UP ORTHOPEDICS; Future Return in about 6 months (around 2020) for HTN, shingrix #2. documented in this encounter Plan of Treatment Upcoming Encounters Date Type Department Care Team (Late st Contact Info) Description 07/07/2024 10:15 EDT Office Visit [facility] [address] [address] Maite Bright DNP [address] [place], [place] [phone] documented as of this encounter Visit Diagnoses Diagnosis Essential hypertension- Primary Unspecified essential hypertension Acquired hypothyroidism Unspecified hypothyroidism Pain of right hand Pain in limb documented in this encounter Historical Medications * This list may reflect changes made after this encounter. Lactobac no.41/Bifidobact no.7 (PROBIOTIC-10 ORAL) Take by mouth. added in this encounter Care Teams Esthetician Facialist Relationship Specialty Start Date End Date Maite Bright DNP [address] [place] [address] PCP - General 11/27/15 documented as of this encounter
--- OUTSIDE RECORDS SUMMARY | 2024-04-22 09:19 | XMS_ITS | Encounter Summary ---
Author Organization [facility] Address [address] [place] [address] Care Team Providers Care Auto Brake Mechanic Name Role Phone Maite Bright DNP Primary Care Provider [phone] Reason for Visit * Reason Comments Other Encounter Details Date Type Department Care Team (Late st Contact Info) Description 08/17/2019 Refill [facility] [address] [address] Maite Bright DNP [address] [place] [phone] Other Social History Tobacco Use Types Packs/Day Years [...] Date End Date irbesartan (AVAPRO) 150 mg tablet TAKE 1 TABLET BY MOUTH EVERY DAY 90 Tab 3 08/17/2019 08/21/2020 documented in this encounter Miscellaneous Notes * Telephone Encounter - Sarah Seay, RN - 08/17/2019 1850 EDT [facility] - 05/12/19 NOV - 11/12/19 last BMP - 05/10/19 Rx(s) escribed to pharmacy. SARAH SEAY, RN documented in this encounter Plan of Treatment Upcoming Encounters Date Type Department Care Team (Late st Contact Info) Description 07/07/2024 10:15 EDT Office Visit [address] [address] Maite Bright DNP [address] [place] [address] documented as of this encounter Visit Diagnoses Not on filedocumented in this encounter Discontinued Medications Medication Sig Discontinue Reason Start Date End Da te irbesartan (AVAPRO) 150 mg tablet Take 150 mg by mouth daily. 02/26/2019 08/17/2019 documented as of this encounter Care Teams Auto Brake Mechanic Relationship Specialty Start Date End Date Maite Bright DNP [address] [place] [address] PCP - General 11/27/15 documented as of this encounter
--- OUTSIDE RECORDS SUMMARY | 2024-04-22 09:19 | XMS_ITS | Encounter Summary ---
Author Organization [facility] Address [address] [place] [address] Care Team Providers Care Chief Recordist Name Role Phone Maite Bright DNP Primary Care Provider [phone] Reason for Visit * Reason Comments Medicare Annual Wellness Visit Encounter Details Date Type Department Care Team (Latest Contact Info) Description 06/11/2022 11:00 EDT Office Visit [facility] [address] [address] Maite Bright DNP [address] [place] [address] Encounter for Medicare annual wellness exam (Primary Dx); Need for vaccination; Cervical cancer screening; Other specified hypothyroidism; Need for lipid screening; Essential hypertension Social History Tobacco Use Types [...] place to sleep or slept in a detention (including now)? No 06/03/2022 Interpersonal Safety Answer [...] Sign Reading Time Taken Comments Blood Pressure 162/85 06/11/2022 1036 EDT Pulse 77 06/11/2022 1036 EDT Temperature - - Respiratory Rate - - Oxygen Saturation 99% 06/11/2022 1036 EDT Inhaled Oxygen Concentration - - Weight 97.5 kg (215 lb) 06/11/2022 1036 EDT Height 163.8 cm (5' 4.49) 06/11/2022 1036 EDT Body Mass Index 36.35 06/11/2022 1036 EDT documented in this encounter Progress Notes * Maite Bright NP - 06/11/2022 1100 EDT Primary Care Medicare Annual Wellness Visit - Subsequent (only updates are needed) Assessment & Plan Diagnoses and all orders for this visit: Encounter for Medicare annual wellness exam Preventive care reviewed. Mammogram 06/10/2022. Pap today. Colonoscopy due 2028. Nonfasting labs today. Living will and DPOA paperwork provided. - PAP TEST - TSH - BASIC METABOLIC PANEL (BMP) - LIPID PROFILE (INCLUDES CHOLESTEROL, TRIGLYCERIDES, HDL, LDL) Need for vaccination Covid-19 booster today. - COVID-19 MRNA-LNP BIVALENT VACCINE (MODERNA BIVALENT BOOSTER) PF 0.5 ML IM (12 YRS+) Cervical cancer screening - PAP TEST Other specified hypothyroidism TSH today. Continue levothyroxine 100mcg/day. - TSH Need for lipid screening - LIPID PROFILE (INCLUDES CHOLESTEROL, TRIGLYCERIDES, HDL, LDL) Essential hypertension Continue irbesartan 150mg/day. Annual renal function and electrolytes today. - BASIC METABOLIC PANEL (BMP) Return in about 6 months (around 12/11/2022) for HTN. Written Health Plan in patient instructions:Yes Patient education was direct. Barriers were assessed and addressed as needed. Susannah Garrison is a 56 y.o. female presenting with Medicare Annual Wellness Visit . HPI Patient self-assessment questionnaire completed, reviewed, and scanned: Yes Full history done with PMH, PSH, SH, FH, ROS. The patient's problem list, past medical/surgical history, medications, allergies, family and social history were all updated and reviewed. Done: Yes Is patient currently on opioids? No (If yes, please address treatment plan.) Diet reviewed: healthy - no recommendations Level of activity: active: 3 - 4 times per week Home Safety: smoke detectors, CO detectors, no trip hazards and adequate lighting Hearing: grossly normal Vision: assessed: No: Functional Evaluation completed Behavioral Health Screen Reviewed: Yes ADLs: independent Cognitive Assessment: No concerns Advance Directives: NO Advance Directive - information given Behavioral Health Screen Summary Interpretation PHQ-2: (P) 0 PHQ-9: KATERIN-2: 0 KATERIN-7: 2 Minimal Anxiety SASQ: (P) Never AUDIT-10: SSASQ: (P) Never DAST-10: . BHS Intervention: Negative screen - no intervention indicated Treating providers: Patient Care Team: Maite Bright NP as PCP - General Review of Systems - See HPI Objective BP (!) 162/85 (BP Cuff Location: Right arm, BP Patient Position: Sitting, BP Cuff Sizes: Adult, large) Pulse 77 Ht 163.8 cm (64.49) Wt 97.5 kg (215 lb) SpO2 99% BMI 36.35 kg/m?? Physical Exam General Exam: GENERAL APPEARANCE: no acute distress, pleasant, cooperative. BREASTS: no palpable masses, no axillary/supraclavicular adenopathy. HEART: normal S1S2, no murmurs. LUNGS: clear to auscultation, unlabored. FEMALE GENITALIA: normal external genitalia, cervix closed and normal in appearance, no adnexal masses or tenderness bilaterally, Pap smear performed. EXTREMITIES: no edema. PERIPHERAL PULSES: lower extremity pulse, 2+, bilaterally. MUSCULOSKELETAL: no abnormality noted. SKIN: warm & dry. NEUROLOGIC EXAM: alert & oriented x3, gait normal. PSYCH: Appropriate. * Jessica Grant LPN - 06/11/2022 1100 EDT Performed by JESSICA GRANT LPN Site Collected Left Forearm Volume Withdrawn STT; 8.5ml Patient Response Patient tolerated venipuncture well and Number of attempts 1 Ordering Provider E Kaila HUI documented in this encounter Plan of Treatment Upcoming Encounters Date Type Department Care Team (Late st Contact Info) Description 07/07/2024 10:15 EDT Office Visit [facility] [address] [address] Maite Bright DNP [address] [place] [address] documented as of this encounter Procedures Procedure Name Priority Date/Time Associated Diagnosis Comments PAP TEST Routine 06/11/2022 11:28 EDT Encounter for Medicare annual wellness exam Cervical cancer screening HPV DNA DETECTION WITH GENOTYPING, PCR Today 06/11/2022 11:28 EDT Encounter for Medicare annual wellness exam Cervical cancer screening TSH Routine 06/11/2022 11:15 EDT Encounter for Medicare annual wellness exam Other specified hypothyroidism LIPID PROFILE (INCLUDES CHOLESTEROL, TRIGLYCERIDES, HDL, LDL) Routine 06/11/2022 11:15 EDT Encounter for Medicare annual wellness exam Need for lipid screening BASIC METABOLIC PANEL (BMP) Routine 06/11/2022 11:15 EDT Encounter for Medicare annual wellness exam Essential hypertension documented in this encounter Results * HUMAN PAPILLOMAVIRUS (HPV) DETECTION-HIGH RISK TYPES (06/11/2022 11:28 EDT) HPV other High Risk types, PCR Negative Negative 06/25/2022 15:15 EDT [facility] Comment:No E6 or E7 mRNA is detected from HPV types 16,18,31,33,35,39,45,51,52,56,58,59,66, and 68 by chemical blender mediated amplification. Papanicolaou smear specimen (specimen) CERVIX UTERI STRUCTURE / Unknown 06/11/2022 11:28 EDT 06/21/2022 12:43 EDT Maite Bright DNP MICROBIOLOGY - GENERAL ORDERABLE S Final Result [facility] [address] [place] [address] * PAP TEST (06/11/2022 11:28 EDT) Specimens A. Cervix and/or Endocervix , ThinPrep Imaging System with Manual Evaluation 06/25/2022 15:15 EDT [facility] Specimen Adequacy Satisfactory for Evaluation - transformation zone component absent 06/25/2022 15:15 EDT [facility] General Categorization Negative for intraepithelial lesion or malignancy 06/25/2022 15:15 EDT [facility] Attestation . 06/25/2022 15:15 T [facility] at 1515 Clinical History cervical cancer screen 06/25/2022 15:15 EDT [facility] HPV The result for the Human Papillomavirus (HPV) Detection-High Risk Types is Negative. No E6 or E7 mRNA is detected from HPV types 16,18,31,33,35,39 ,45,51,52,56,58,5 9,66, and 68 by chemical blender mediated amplification.Yamila ting was performed on specimen [id number] and was resulted on 06/25/2022 1515 EDT by MARCELA, LAB INSTRUMENT RESULTS IN 06/25/2022 15:15 EDT [facility] Performing Lab [facility] 06/25/2022 15:15 EDT [facility] Scanned Images 06/25/2022 15:15 EDT [facility] Papanicolaou smear specimen (specimen) CERVIX UTERI STRUCTURE / Unknown 06/11/2022 11:28 EDT 06/11/2022 11:28 EDT us Maite Bright DNP PATHOLOGY ORDERABLES Final Resul t [facility] [address] [place] [address] * (ABNORMAL) LIPID PROFILE (INCLUDES CHOLESTEROL, TRIGLYCERIDES, HDL, LDL) (06/11/2022 11:15 EDT) Cholesterol 260(H) <200 mg/dL 06/11/2022 13:48 T [facility] Comment:Note that therapeuti c goals will differ between patients based on cardiac risk factors and current medical therapy. HDL 61 >=50 mg/dL 06/11/2022 13:48 T [facility] Comment:Note that therapeuti c goals will differ between patients based on cardiac risk factors and current medical therapy. LDL, Calculated 166(H) <160 mg/dL 13:48 [facility] Comment:Note that therapeuti c goals will differ between patients based on cardiac risk factors and current medical therapy. Triglyceride 165(H) <=150 mg/dL 06/11/2022 13:48 [facility] Comment:Note that therapeuti c goals will differ between patients based on cardiac risk factors and current medical therapy. Chol/HDL Ratio 4.3 See Note 06/11/2022 13:48 EDT [facility] Comment: NOTE: Desirable Ratio = <4.1 Patient At Risk Ratio = >5.0(Males) ?>6.0(Females) Non HDL Cholesterol 199(H) <160 mg/dL 06/11/2022 13:48 T [facility] Comment:Note that therapeuti c goals will differ between patients based on cardiac risk factors and current medical therapy. Blood VENOUS BLOOD / Unknown Venipuncture / Unknown 06/11/2022 11:15 EDT 06/11/2022 11:15 EDT us Maite Bright DNP CHEMISTRY & BLOOD GAS ORDERABLES Final Result [facility] [address] [place] [address] * BASIC METABOLIC PANEL (BMP) (06/11/2022 11:15 EDT) Sodium 141 136 - 145 mmol/L 06/11/2022 13:48 [facility] Potassium 4.4 3.5 - 5.0 mmol/L 06/11/2022 13:48 [facility] Chloride 105 96 - 110 mmol/L 06/11/2022 13:48 [facility] CO2 Total 27 22 - 32 mmol/L 06/11/2022 13:48 [facility] Anion Gap 9 5 - 14 06/11/2022 13:48 [facility] Glucose 87 70 - 100 mg/dL 06/11/2022 13:48 [facility] Calcium 9.5 8.5 - 10.5 mg/dL 06/11/2022 13:48 [facility] BUN 16 10 - 26 mg/dL 06/11/2022 13:48 [facility] Creatinine 0.81 0.52 - 1.04 mg/dL 06/11/2022 13:48 [facility] eGFR 86 >60 mL/min/1.73 m2 06/11/2022 13:48 EDT [facility] Blood VENOUS BLOOD / Unknown Venipuncture / Unknown 06/11/2022 11:15 EDT 06/11/2022 11:15 EDT us Maite Bright [facility] CHEMISTRY & BLOOD GAS ORDERABLES Final Result Performing Organization Address City/[facility]/ZIP Co de Phone Number [facility] [address] [place] [address] * TSH (06/11/2022 11:15 EDT) TSH 2.65 0.47 - 4.68 mIU/L 06/11/2022 14:22 EDT [facility] Blood VENOUS BLOOD / Unknown Venipuncture / Unknown 06/11/2022 11:15 EDT 06/11/2022 11:15 EDT Narrative [facility] - 06/11/2022 14:22 EDT The results of this assay can be falsely lowered due to the consumption of Biotin. Maite Bright [facility] CHEMISTRY & BLOOD GAS ORDERABLES Final Result Performing Organization Address City/[facility] Co de Phone Number [facility] [address] [place] [address] documented in this encounter Visit Diagnoses Diagnosis Encounter for Medicare annual wellness exam- Primary Routine general medical examination at a health care facility Need for vaccination Need for prophylactic vaccination and inoculation against unspecified single disease Cervical cancer screening Screening for malignant neoplasm of the cervix Other specified hypothyroidism Need for lipid screening Screening for lipoid disorders Essential hypertension Unspecified essential hypertension documented in this encounter Historical Medications * This list may reflect changes made after this encounter. Medication Sig Dispense Quantity Refills Last Filled Start D ate End Date MEDICAL MARIJUANA added in this encounter Orders Immunization/Injection Count Last Ordered Date First Ordered Date COVID-19 MRNA-LNP BIVALENT V ACCINE (MODERNA BIVALENT BOOSTER) PF 0.5 ML IM (12 YRS+) 1 06/11/2022 documented in this encounter Care Teams Chief Recordist Relationship Specialty Start Date End Date Maite Bright DNP [address] [place] [address] PCP - General 11/27/15 documented as of this encounter
--- OUTSIDE RECORDS SUMMARY | 2024-04-22 09:19 | XMS_ITS | Encounter Summary ---
Author Organization [facility] Address [address] [place] [address] Care Team Providers Care Search Lead Name Role Phone Maite rBight DNP Primary Care Provider [phone] Reason for Visit * Reason Comments Other Encounter Details Date Type Department Care Team (Late st Contact Info) Description 06/11/2019 Refill [facility] [address] [address] Maite Bright DNP [address] [place] [id number] Other Social History Tobacco Use Types Packs/Day [...] Date End Date levothyroxine (SYNTHROID) 100 mcg tablet TAKE 1 TABLET BY MOUTH EVERY DAY 90 Tab 3 06/11/2019 06/05/2020 documented in this encounter Miscellaneous Notes * Telephone Encounter - Sarah Barron RN - 06/11/2019 1306 EDT MALI - 05/12/19 NOV - none last TSH - 05/10/19 Rx(s) escribed to pharmacy. SARAH ISIDRO-KITE, RN documented in this encounter Plan of Treatment Upcoming Encounters Date Type Department Care Team (Late st Contact Info) Description 07/07/2024 10:15 EDT Office Visit [facility] [address] [place], [place] [phone] Maite Bright DNP [address] [place] [address] documented as of this encounter Visit Diagnoses Not on filedocumented in this encounter Discontinued Medications Medication Sig Discontinue Reason Start Date End Da te levothyroxine (SYNTHROID) 100 mcg tablet Take 1 Tab by mouth daily. 12/20/2016 06/11/2019 documented as of this encounter Care Teams Search Lead Relationship Specialty Start Date End Date Maite Bright DNP [address] [place] [address] PCP - General 11/27/15 documented as of this encounter
--- OUTSIDE RECORDS SUMMARY | 2024-04-22 09:19 | XMS_ITS | Encounter Summary ---
Author Organization [facility] Address [address] [place] [address] Care Team Providers Care Beamer Helper Name Role Phone Maite Bright DNP Primary Care Provider [phone] Encounter Details Date Type Department Care Team (Late st Contact Info) Description 06/14/2021 8:50 EDT Phlebotomy Only [facility] - Outpatient Phlebotomy Drawing [address] [place] [address] Lab, [facility] Phle[facility]omy Essential hypertension; Acquired hypothyroidism; Mixed hyperlipidemia Social History Tobacco Use Types Packs/Day Years Used Date Smoking Tobacco: Never Smokeless Tobacco: Never Alcohol Use Standard Drinks/Week Comments Yes 0 (1 standard drink = 0.6 oz pur e alcohol) Overall Financial Resource Strain (CARDIA) Answe r Date Recorded How hard is it for you to pa y for the very basics like food, housing, medical care, and heating? Hard 06/14/2021 Hunger Vital Sign Answer Date Recorded Within the past 12 months, y ou worried that your food would run out before you got the money to buy more. Never true 06/15/19 22 Within the past 12 months, t he food you bought just didn't last and you didn't have money to get more. Never true 06/14/2021 PRAPARE - Transportation Answer Date Re corded In the past 12 months, has l ack of transportation kept you from medical appointments or from getting medications? No 09/2021 In the past 12 months, has l ack of transportation kept you from meetings, work, or from getting things needed for daily living? No 06/14/2021 Housing Stability Vital Sign Answer Mayo e Recorded In the last 12 months, was t here a time when you were not able to pay the mortgage or rent on time? No 06/14/2021 Number of Places Lived in the Last Year Not on f ile 06/14/2021 In the last 12 months, was t here a time when you did not have a steady place to sleep or slept in a long-term (including now)? No 06/14/2021 Interpersonal Safety Answer Date Record ed How often does anyone, inclu alexandra family, hit, punch or physically hurt you? Never 06/14/2021 How often does anyone, inclu alexandra family, insult, scream, curse or threaten to hurt you? Never 06/14/2021 Comments Unknown Sex and Gender Information Value Date Recorded Sex Assigned at Female 01/30/2024 9:50 EST Legal Sex Female 17:44 EST Gender Identity Female 01/30/2024 9:50 EST Sexual Orientation Not on file COVID-19 Exposure Response Date Recorded In the last 10 days, have yo u been in contact with someone who was confirmed or suspected to have Coronavirus/COVID-19? No / Unsure 06/14/2021 9:49 EDT documented as of this encounter Plan of Treatment Upcoming Encounters Date Type Department Care Team (Late st Contact Info) Description 07/07/2024 10:15 EDT Office Visit [facility] Family Medicine [address] [address] Maite Bright [address] [address] documented as of this encounter Procedures Procedure Name Priority Date/Time Associated Diagnosis Comments TSH Routine 06/14/2021 8:54 EDT Acquired hypothyroidism LIPID PROFILE (INCLUDES CHOLESTEROL, TRIGLYCERIDES, HDL, LDL) Routine 06/14/2021 8:54 EDT Mixed hyperlipidemia COMPREHENSIVE METABOLIC PANEL (CMP) Routine 06/14/2021 8:54 EDT Essential hypertension Acquired hypothyroidism documented in this encounter Results * TSH (06/14/2021 8:54 EDT) Pathologist [facility] TSH 1.31 0.47 - 4.68 mIU/L 06/14/2021 11:32 EDT [facility] Blood VENOUS BLOOD / Unknown Venipuncture / Unknown 06/14/2021 8:54 EDT 06/14/2021 10:15 EDT Narrative [facility] - 06/14/2021 11:32 EDT The results of this assay can be falsely lowered due to the consumption of Biotin. Maite Kaila [facility] CHEMISTRY & BLOOD GAS ORDERABLES Final Result [facility] [address] [place] [address] * (ABNORMAL) LIPID PROFILE (INCLUDES CHOLESTEROL, TRIGLYCERIDES, HDL, LDL) (06/14/2021 8:54 EDT) [facility] Cholesterol 235(H) <200 mg/dL 06/14/2021 10:58 [facility] Comment:Note that therapeuti c goals will differ between patients based on cardiac risk factors and current medical therapy. HDL 68 >=50 mg/dL 06/14/2021 10:58 [facility] Comment:Note that therapeuti c goals will differ between patients based on cardiac risk factors and current medical therapy. LDL, Calculated 142 <160 mg/dL 10:58 [facility] Comment:Note that therapeuti c goals will differ between patients based on cardiac risk factors and current medical therapy. Triglyceride 127 <=150 mg/dL 06/14/2021 10:58 [facility] Comment:Note that therapeuti c goals will differ between patients based on cardiac risk factors and current medical therapy. Chol/HDL Ratio 3.5 See Note 06/14/2021 10:58 [facility] Comment: NOTE: Desirable Ratio = <4.1 Patient At Risk Ratio = >5.0(Males) ?>6.0(Females) Non HDL Cholesterol 167(H) <160 mg/dL 06/14/2021 10:58 [facility] Comment:Note that therapeuti c goals will differ between patients based on cardiac risk factors and current medical therapy. Blood VENOUS BLOOD / Unknown Venipuncture / Unknown 06/14/2021 8:54 EDT 06/14/2021 10:15 EDT us Maite Bright DNP CHEMISTRY & BLOOD GAS ORDERABLES Final Result [facility] [address] [place] [address] * (ABNORMAL) COMPREHENSIVE METABOLIC PANEL (CMP) (06/14/2021 8:54 EDT) Sodium 142 136 - 145 mmol/L 06/14/2021 10:58 [facility] Potassium 4.3 3.5 - 5.0 mmol/L 06/14/2021 10:58 [facility] Chloride 104 96 - 110 mmol/L 06/14/2021 10:58 [facility] CO2 Total 28 22 - 32 mmol/L 06/14/2021 10:58 [facility] Glucose 82 70 - 100 mg/dL 06/14/2021 10:58 [facility] BUN 9(L) 10 - 26 mg/dL 06/14/2021 10:58 [facility] Creatinine 0.76 0.52 - 1.04 mg/dL 06/14/2021 10:58 [facility] eGFR 94 >60 mL/min/1.7 3m2 06/14/2021 10:58 [facility] Total Protein 7.5 6.3 - 8.2 g/dL 06/14/2021 10:58 [facility] Albumin 4.4 3.4 - 4.9 g/dL 06/14/2021 10:58 [facility] Alkaline Phosphatase 90 38 - 126 U/L 06/14/2021 10:58 [facility] AST 27 15 - 46 U/L 06/14/2021 10:58 [facility] ALT 25 <35 U/L 06/14/2021 10:58 EDT [facility] Bilirubin, Total 1.0 <1.4 mg/dL 06/15/19 10:58 EDT [facility] Calcium 9.6 8.5 - 10.5 mg/dL 06/14/2021 10:58 EDT [facility] Albumin/Globulin Ratio 1.4 1.0 - 2.5 06/14/2021 10:58 EDT [facility] Anion Gap 10 5 - 14 06/14/2021 10:58 T [facility] Blood VENOUS BLOOD / Unknown Venipuncture / Unknown 06/14/2021 8:54 EDT 06/14/2021 10:15 EDT Maite Bright DNP CHEMISTRY & BLOOD GAS ORDERABLES Final Result Performing Organization Address City/State/[facility] Co de Phone Number [facility] [address] [place] [address] documented in this encounter Visit Diagnoses Diagnosis Essential hypertension Unspecified essential hypertension Acquired hypothyroidism Unspecified hypothyroidism Mixed hyperlipidemia documented in this encounter Care Teams Beamer Helper Relationship Specialty Start Date End Date Maite Bright DNP [address] [place] [id number] PCP - General 11/27/15 documented as of this encounter
--- OUTSIDE RECORDS SUMMARY | 2024-04-22 09:19 | XMS_ITS | Encounter Summary ---
Author Organization [facility] Address [address] [place] [address] Care Team Providers Care Furnace Operator And Tender Name Role Phone Maite Bright DNP Primary Care Provider [phone] Encounter Details Date Type Department Care Team (Latest Contact Info) Description 12/18/2021 Travel Social History Tobacco Use Types Packs/Day [...] Never 12/18/2021 How often does anyone, inclu alexandra family, [...] 11:12 EDT documented as of this encounter Plan of Treatment Upcoming Encounters Date Type Department Care Team (Late st Contact Info) Description 07/07/2024 10:15 EDT Office Visit [facility] [address] [address] Maite Bright DNP [address] [place] [address] documented as of this encounter Visit Diagnoses Not on filedocumented in this encounter Care Teams Furnace Operator And Tender Relationship Specialty Start Date End Date Maite Bright DNP [address] [place] [address] PCP - General 11/27/15 documented as of this encounter
--- OUTSIDE RECORDS SUMMARY | 2024-04-22 09:19 | XMS_ITS | Encounter Summary ---
Author Organization [facility] Address [address] [place] [address] Care Team Providers Care Regulatory Affairs Internship Name Role Phone Maite Bright DNP Primary Care Provider [phone] Encounter Details Date Type Department Care Team (Late st Contact Info) Description 02/13/2019 Abstract [facility] Adult Primary Care - [address] [phone] Ambulatory, Senior Technical Support Engineer Social History Tobacco Use Types Packs/Day Years [...] Info) Description 07/07/2024 10:15 EDT Office Visit [facility] Integrative Family Medicine [facility] [address] [place], [place] [phone] Maite Bright DNP [address] [place] [address] documented as of this encounter Visit Diagnoses Not on filedocumented in this encounter Discontinued Medications Medication Sig Discontinue Reason Start Date End Da te ibuprofen (MOTRIN) 200 mg tablet Take 200 mg by mouth every 6 hours. Duplicate order 02/13/2019 losartan (COZAAR) 50 mg tablet Take 50 mg by mouth daily. Duplicate order 02/13/2019 melatonin 3 mg tablet Take 3 mg by mouth at bedtime. Duplicate order 02/13/2019 turmeric root extract 500 mg capsule Take by mouth. Duplicate order 02/13/2019 documented as of this encounter Historical Medications * This list may reflect changes made after this encounter. CANNABIDIOL, CBD, EXTRACT ORAL UNABLE TO FIND Multivitamin one tablet , Sig: orally daily betamethasone dipropionate (DIPROLENE) 0.05 % ointment Apply 1 application topically 2 times daily. to eczema on body/extremities 05/05/2018 irbesartan (AVAPRO) 150 mg tablet Take 1 Tab by mouth daily. 09/16/2016 9 MEDICAL MARIJUANA 2 times daily as needed. As directed 12/25/2015 0 levothyroxine (SYNTHROID) 100 mcg tablet Take 1 Tab by mouth daily. 12/20/2016 0 added in this encounter Care Teams Regulatory Affairs Internship Relationship Specialty Start Date End Date Maite Bright DNP [address] [place] [address] PCP - General 11/27/15 documented as of this encounter
--- OUTSIDE RECORDS SUMMARY | 2024-04-22 09:19 | XMS_ITS | Encounter Summary ---
Author Organization [facility] Address [address] [place] [address] Care Team Providers Care Electrolog Operator Name Role Phone Maite Bright DNP Primary Care Provider [phone] Reason for Visit * Reason Onset Date Comments Appointment Related 08/27/2022 Encounter Details Date Type Department Care Team (Late st Contact Info) Description 08/27/2022 Telephone [facility] Family Medicine [address] [address] Maite Bright DNP [address] [place] [address] Appointment Related Social History Tobacco Use Types Packs/Day Years [...] * Telephone Encounter - Katarzyna Walton - 08/27/2022 1501 EDT LVM about schedule change 08/27 documented in this encounter Plan of Treatment Upcoming Encounters Date Type Department Care Team (Late st Contact Info) Description 07/07/2024 10:15 EDT Office Visit [facility] Integrative Family Medicine [facility] [address] [place] [address] Maite Bright DNP [address] [place] [address] documented as of this encounter Visit Diagnoses Not on filedocumented in this encounter Care Teams Electrolog Operator Relationship Specialty Start Date End Date Maite Bright DNP [address] [place] [address] PCP - General 11/27/15 documented as of this encounter
--- OUTSIDE RECORDS SUMMARY | 2024-04-22 09:19 | XMS_ITS | Encounter Summary ---
Author Organization [facility] Address [address] [place] [address] Care Team Providers Care Anchorman Name Role Phone Maite Bright DNP Primary Care Provider [phone] Reason for Visit * Reason Comments Medications Refill Encounter Details Date Type Department Care Team (Late st Contact Info) Description 12/03/2021 Refill [facility] Integrative Family Medicine [address] [address] Maite Bright DNP [address] [place] [address] Medications Refill Social History Tobacco Use [...] slept in a retirement (including now)? No 06/14/2021 Interpersonal Safety Answer Date Record ed How often does anyone, inclchayo alexandra family, hit, punch or physically hurt you? Never 06/14/2021 How often does anyone, noreenchayo alexandra family, [...] BY MOUTH EVERY DAY 90 Tablet 3 12/03/2021 3 documented in this encounter Miscellaneous Notes * Telephone Encounter - Sarah Barron RN - 12/03/2021 0938 EDT MALI - 06/14/21 NOV - 12/18/21 last TSH - 06/14/21 Rx(s) escribed to pharmacy. documented in this encounter Plan of Treatment Upcoming Encounters Date Type Department Care Team (Late st Contact Info) Description 07/07/2024 10:15 EDT Office Visit [facility] Integrative Family Medicine [address] [phone] Maite Bright DNP [address] [place] [address] documented as of this encounter Visit Diagnoses Diagnosis Acquired hypothyroidism- Primary Unspecified hypothyroidism documented in this encounter Discontinued Medications Medication Sig Discontinue Reason Start Date End Da te levothyroxine (SYNTHROID) 100 mcg tabletIndications:Acquired hypothyroidism Take 1 Tablet by mouth daily. 11/21/2020 12/03/2021 documented as of this encounter Care Teams Anchorman Relationship Specialty Start Date End Date Maite Bright DNP [address] [place] [address] PCP - General 11/27/15 documented as of this encounter
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
--- OUTSIDE RECORDS SUMMARY | 2024-04-22 09:19 | XMS_ITS | Encounter Summary ---
Author Organization [facility] Address [address] [place] [address] Care Team Providers Care Golf Shoe Spike Assembler Name Role Phone Kaila Maite KORINA Primary Care Provider [phone] Encounter Details Date Type Department Care Team (Latest Contact Info) Description 06/14/2021 Travel Social History Tobacco Use Types Packs/Day [...] Info) Description 07/07/2024 10:15 EDT Office Visit [facility] Integrative Family Medicine [address] [address] Maite Bright DNP [address] [place] [address] documented as of this encounter Visit Diagnoses Not on filedocumented in this encounter Care Teams Golf Shoe Spike Assembler Relationship Specialty Start Date End Date Maite Bright DNP [address] [place] [address] PCP - General 11/27/15 documented as of this encounter
--- OUTSIDE RECORDS SUMMARY | 2024-04-22 09:19 | XMS_ITS | Encounter Summary ---
Author Organization [facility] Address [address] [place] [address] Care Team Providers Care Vp Production Name Role Phone Maite Bright DNP Primary Care Provider [phone] Reason for Visit * Reason Onset Date Comments Appointment Related 06/30/2019 Encounter Details Date Type Department Care Team (Late st Contact Info) Description 06/30/[address] [address] Maite Bright DNP [address] [place] [phone] Appointment Related Social History Tobacco Use Types [...] Info) Description 07/07/2024 10:15 EDT Office Visit [address] [phone] Maite Bright DNP [address] [place] [phone] documented as of this encounter Visit Diagnoses Not on filedocumented in this encounter Care Teams Vp Production Relationship Specialty Start Date End Date Maite Bright DNP [address] [place] [address] PCP - General 11/27/15 documented as of this encounter
--- OUTSIDE RECORDS SUMMARY | 2024-04-22 09:19 | XMS_ITS | Encounter Summary ---
Author Organization [facility] Address [address] [place] [address] Care Team Providers Care Critical Care Registered Nurse Name Role Phone Maite Bright DNP Primary Care Provider [phone] Encounter Details Date Type Department Care Team (Latest Contact Info) Description 07/06/2020 Travel Social History Tobacco Use Types Packs/Day [...] have Coronavirus / COVID-19? No / Unsure 07/06/2020 11:05 EDT documented as of this encounter Plan of Treatment Upcoming Encounters Date Type Department Care Team (Late st Contact Info) Description 07/07/2024 10:15 EDT Office Visit [facility] [address] [place] [address] Maite Bright DNP [address] [place], [place] [phone] documented as of this encounter Visit Diagnoses Not on filedocumented in this encounter Care Teams Critical Care Registered Nurse Relationship Specialty Start Date End Date Maite Bright DNP [address] [place] [address] PCP - General 11/27/15 documented as of this encounter
--- OUTSIDE RECORDS SUMMARY | 2024-04-22 09:19 | XMS_ITS | Encounter Summary ---
Author Organization [facility] Address [address] [place] [address] Care Team Providers Care Asset Protection Professional Name Role Phone Maite Bright DNP Primary Care Provider [phone] Encounter Details Date Type Department Care Team (Late st Contact Info) Description 05/10/2019 Orders Only [address] [address] Malissa Almonte RN Preventative health care (Primary Dx); Hypothyroidism, unspecified type Social History Tobacco Use Types Packs/Day Years [...] as of this encounter Progress Notes * Malissa Almonte RN - 05/10/2019 0953 EST Patient at labs. Needed updated orders sent. documented in this encounter Plan of Treatment Upcoming Encounters Date Type Department Care Team (Late st Contact Info) Description 07/07/2024 10:15 EDT Office Visit [address] [address] Maite Bright DNP [address] [place] [address] [phone] (work) Scheduled Orders Name Type Priority Associated Diagnoses Orde r Schedule TSH Lab Routine Preventative health care Hypothyroidism, unspecified type Ordered: 05/10/2019 documented as of this encounter Procedures Procedure Name Priority Date/Time Associated Diagnosis Comments THYROID CASCADE Routine 05/10/2019 10:05 EST Hypothyroidism, unspecified type COMPREHENSIVE METABOLIC PANEL (CMP) Routine 05/10/2019 10:05 EST Preventative health care documented in this encounter Results * THYROID CASCADE (05/10/2019 10:05 EST) Pathologist [facility] TSH 2.26 0.46 - 4.68 uIU/mL 05/10/2019 11:33 [facility] Blood VENOUS BLOOD / Unknown 05/10/2019 10:05 EST 05/10/2019 10:05 EST Narrative [facility] - 05/10/2019 11:33 EST Does PT Have a Latex Allergy? NO Maite Bright [facility] CHEMISTRY & BLOOD GAS ORDERABLES Final Result [facility] * COMPREHENSIVE METABOLIC PANEL (CMP) (05/10/2019 10:05 EST) Pathologist [facility] Albumin % 4.2 3.4 - 4.9 g/dL 05/10/2019 11:03 [facility] ALKALINE PHOSPHATASE - [facility] 86 38 - 126 U/L 05/10/2019 11:03 [facility] BILIRUBIN TOTAL 0.9 0.2 - 1.3 mg/dL 05/10/2019 11:03 [facility] BUN - [facility] 11 10 - 26 mg/dL 05/10/2019 11:03 [facility] CALCIUM - [facility] 9.6 8.5 - 10.5 mg/dL 05/10/2019 11:03 [facility] Chloride 105 96 - 110 mmol/L 05/10/2019 11:03 [facility] CO2 Total 28 22 - 32 mEq/L 05/10/2019 11:03 [facility] CREATININE 0.77 0.52 - 1.04 mg/dL 05/10/2019 11:03 [facility] eGFR >60 05/10/2019 11:03 [facility] Comment: Chronic renal impairment is defined as GFR <60 Multiply result by 1.210 for patients. eGFR calculated using the IDMS-traceable MDRD Study Equation. ??(effective 01/10/2014) Anion Gap 7 0 - 18 05/10/2019 11:03 [facility] GLUCOSE - [facility] 82 70 - 100 mg/dL 05/10/2019 11:03 [facility] Potassium 4.5 3.5 - 5.0 mEq/L 05/10/2019 11:03 [facility] Sodium 140 136 - 145 mEq/L 05/10/2019 11:03 [facility] TOTAL PROTEIN - [facility] 7.1 6.2 - 8.2 gm/dL 05/10/2019 11:03 [facility] SGOT/AST - [facility] 28 14 - 36 U/L 05/10/2019 11:03 [facility] SGPT/ALT - [facility] 27 0 - 35 U/L 0 11:03 [facility] Blood VENOUS BLOOD / Unknown 05/10/2019 10:05 EST 05/10/2019 10:05 EST [facility] - 05/10/2019 11:03 EST Does PT Have a Latex Allergy? NO Maite Bright DNP CHEMISTRY & BLOOD GAS ORDERABLES Final Result [facility] documented in this encounter Visit Diagnoses Diagnosis Preventative health care- Primary Routine general medical examination at a health care facility Hypothyroidism, unspecified type documented in this encounter Care Teams Asset Protection Professional Relationship Specialty Start Date End Date Maite Bright DNP [address] [place] [address] PCP - General 11/27/15 documented as of this encounter
--- OUTSIDE RECORDS SUMMARY | 2024-04-22 09:19 | XMS_ITS | Encounter Summary ---
Author Organization [facility] Address [address] [place] [address] Care Team Providers Care Stencil Printer Name Role Phone Maite Bright DNP Primary Care Provider Encounter Details Date Type Department Care Team (Latest Contact Info) Description 03/22/2020 Travel Social History Tobacco Use Types Packs/Day [...] have Coronavirus / COVID-19? No / Unsure 03/22/2020 14:32 EST documented as of this encounter Plan of Treatment Upcoming Encounters Date Type Department Care Team (Late st Contact Info) Description 07/07/2024 10:15 EDT [facility] [address] [place] [address] Maite Bright DNP [address] [place] [address] documented as of this encounter Visit Diagnoses Not on filedocumented in this encounter Care Teams Stencil Printer Relationship Specialty Start Date End Date Maite Bright DNP [address] [place] [phone] PCP - General 11/27/15 documented as of this encounter
--- OUTSIDE RECORDS SUMMARY | 2024-04-22 09:19 | XMS_ITS | Encounter Summary ---
Author Organization [facility] Address [address] [place] [address] Care Team Providers Care Desk Lieutenant Name Role Phone Maite Bright DNP Primary Care Provider [phone] Encounter Details Date Type Department Care Team ([facility] Contact Info) Description 08/18/2017 Historical Results Only [facility] Radiology Results [address] [place] [address] Maite Bright DNP [address] [place], [place] [address] Social History Tobacco Use Types Packs/Day Years [...] Encounters Date Type Department Care Team (Late Contact Info) Description 07/07/2024 10:15 EDT Office Visit [facility] Integrative Family Medicine [facility] [address] [place], [place] [phone] Maite Bright DNP [address] [place], [place] [address] documented as of this encounter Visit Diagnoses Not on filedocumented in this encounter Care Teams Desk Lieutenant Relationship Specialty Start Date End Date Maite Bright DNP [address] [place] [address] PCP - General 11/27/15 documented as of this encounter
--- OUTSIDE RECORDS SUMMARY | 2024-04-22 09:19 | XMS_ITS | Encounter Summary ---
Author Organization [facility] Address [address] [place] [address] Care Team Providers Care Telegraphic Typewriter Operator Chief Name Role Phone Maite Bright DNP Primary Care Provider [phone] Reason for Visit * Reason Comments Other Lump on right hand Encounter Details Date Type Department Care Team (Late st Contact Info) Description 03/22/2020 15:00 EST Office Visit [facility] Integrative Family Medicine [address] [address] Maite Bright DNP [address] [place] [address] Calcinosis cutis (Primary Dx) Social History Tobacco Use Types [...] 14:32 EST documented as of this encounter Last Filed Vital Signs Vital Sign Reading Time Taken Comments Blood Pressure 152/92 03/22/2020 1441 EST Pulse 75 03/22/2020 1441 EST Temperature - - Respiratory Rate 16 03/22/2020 1441 EST Oxygen Saturation 98% 03/22/2020 1441 EST Inhaled Oxygen Concentration - - Weight 101.7 kg (224 lb 3.2 oz) 03/22/2020 1441 EST Height 163.8 cm (5' 4.49) 03/22/2020 1441 EST Body Mass Index 37.9 03/22/2020 1441 EST documented in this encounter Progress Notes * Bright, Maite, ANDREW - 03/22/2020 1500 EST [facility] [place] [facility] Subjective: Chief Complaint(s): Other (Lump on right hand ) HPI Meli noticed a small (few millimeter), mobile mass on the dorsal aspect of her right hand 3 days ago. Tender with palpation. 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 I have reviewed patient's tobacco history: reports [...] file prior to visit. Review of Systems Skin: Negative for rash and wound. Objective: Examination: Vitals: BP (!) 152/92 Pulse 75 Resp 16 Ht 163.8 cm (64.49) Wt (!) 101.7 kg (224 lb 3.2 oz) SpO2 98% BMI 37.90 kg/m?? Body mass index is 37.9 kg/m??. Physical Exam GENERAL APPEARANCE: no acute distress, pleasant, cooperative. HEENT EYES:, conjunctiva clear. LUNGS: unlabored SKIN: warm & dry, dorsum or R hand 2-3mm hard, mobile, circular mass NEUROLOGIC EXAM: alert & oriented x3, gait normal. 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 Let me know if this persist, gets larger, or other symptoms develop. Would consider US. Follow up in May as scheduled. documented in this encounter Plan of Treatment Upcoming Encounters Date Type Department Care Team (Late st Contact Info) Description 07/07/2024 10:15 EDT Office Visit [facility] Integrative Family Medicine [address] [phone] Maite Bright DNP [address] [place] [phone] documented as of this encounter Visit Diagnoses Diagnosis Calcinosis cutis- Primary Degenerative skin disorder documented in this encounter Care Teams Telegraphic Typewriter Operator Chief Relationship Specialty Start Date End Date Maite Bright DNP [address] [place] [address] PCP - General 11/27/15 documented as of this encounter
--- OUTSIDE RECORDS SUMMARY | 2024-04-22 09:19 | XMS_ITS | Encounter Summary ---
Author Organization [facility] Address [address] [place] [address] Care Team Providers Care Refrigeration Service Inspector Name Role Phone Bright, Maite KORINA Primary Care Provider [phone] Reason for Visit * Reason Comments Immunizations Encounter Details Date Type Department Care Team (Late st Contact Info) Description 09/12/2020 13:00 EDT Nurse Only [address] [address] Nurse, [facility] Immunization due (Primary Dx) Social History Tobacco Use Types [...] 12:45 EDT documented as of this encounter Last Filed Vital Signs Vital Sign Reading Time Taken Comments Blood Pressure - - Pulse - - Temperature 36.6 ??C (97.9 ??F) 09/12/2020 1317 EDT Respiratory Rate - - Oxygen Saturation - - Inhaled Oxygen Concentration - - Weight - - Height - - Body Mass Index - - documented in this encounter Progress Notes * Katerina Whaley RN - 09/12/2020 1300 EDT Patient tolerated procedure well. Given in left deltoid documented in this encounter Plan of Treatment Upcoming Encounters Date Type Department Care Team (Late st Contact Info) Description 07/07/2024 10:15 EDT Office Visit [facility] Family [address] [phone] Maite Bright DNP [address] [place] [address] documented as of this encounter Visit Diagnoses Diagnosis Immunization due- Primary Need for prophylactic vaccination and inoculation against unspecified single disease documented in this encounter Orders Immunization/Injection Count Last Ordered Date First Ordered Date SHINGRIX (ZOSTER VACCINE, RECOMBINANT) IM 1 09/12/2020 documented in this encounter Care Teams Refrigeration Service Inspector Relationship Specialty Start Date End Date Maite Bright DNP [address] [place] [address] PCP - General 11/27/15 documented as of this encounter
--- OUTSIDE RECORDS SUMMARY | 2024-04-22 09:19 | XMS_ITS | Encounter Summary ---
Author Organization [facility] Address [address] [place] [address] Care Team Providers Care Grey Goods Tester Name Role Phone Maite Bright DNP Primary Care Provider [phone] Reason for Visit * Reason Onset Date Comments Medication Management 02/19/2019 Encounter Details Date Type Department Care Team (Late st Contact Info) Description 02/19/2019 Telephone [facility] Family [address] [address] Malissa Almonte, personal service workers Management Social History Tobacco Use Types Packs/Day Years [...] Refills Last Filled Start Date End Date losartan (COZAAR) 100 mg tablet Take 1 Tab by mouth daily for 90 days. 90 Tab 4 02/22/2019 05/12/2019 documented in this encounter Miscellaneous Notes * Telephone Encounter - Malissa Almonte RN - 02/22/2019 0837 EST New presc sent in. Med list updated * Telephone Encounter - Maite Bright APRN - 02/21/2019 1805 EST Losartan 100mg/day. Maite Bright APRN 02/21/2019 18:05 Please update Rx. * Telephone Encounter - Malissa Almonte RN - 02/19/2019 1623 EST avapro 150mg is not available. Not sure how long pharmacy will be out. Is there a substitute. documented in this encounter Plan of Treatment Upcoming Encounters Date Type Department Care Team (Late st Contact Info) Description 07/07/2024 10:15 EDT Office Visit [facility] Family [address] [address] Maite Bright DNP [address] [place] [address] documented as of this encounter Visit Diagnoses Not on filedocumented in this encounter Discontinued Medications Medication Sig Discontinue Reason Start Date End Da te irbesartan (AVAPRO) 150 mg tablet Take 1 Tab by mouth daily. Availability 09/16/2016 02/22/2019 documented as of this encounter Care Teams Grey Goods Tester Relationship Specialty Start Date End Date Maite Bright DNP [address] [place] [address] PCP - General 11/27/15 documented as of this encounter
--- OUTSIDE RECORDS SUMMARY | 2024-04-22 09:19 | XMS_ITS | Encounter Summary ---
Author Organization [facility] Address [address] [place] [address] Care Team Providers Care Recreational Sports Director Name Role Phone Maite Bright DNP Primary Care Provider [phone] Reason for Visit * Reason Comments Balance problem loss of hearing L ea r Other states since last Fr iday she has no hearing in her L ear. Has ear prosthesis, some pain associated if I turn my head a certain way. Other BP taken at this trisha e, /. Pt was speaking throughout and has increased pain of bilat hips. She will repeat BP before this visit. 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 (Primary Dx); Tinnitus, unspecified laterality Social History Tobacco Use Types Packs/Day Years [...] Sign Reading Time Taken Comments Blood Pressure 140/86 07/01/2019 0842 EDT Pulse - - Temperature 36.6 ??C (97.8 ??F) 07/01/2019 0842 EDT Respiratory Rate - - Oxygen Saturation - - Inhaled Oxygen Concentration - - Weight 110.2 kg (243 lb) 07/01/2019 0842 EDT Height 163.8 cm (5' 4.5) 07/01/2019 0842 EDT Body Mass Index 41.07 07/01/2019 0842 EDT documented in this encounter Progress Notes * aMite Bright APRN - 07/01/2019 0930 EDT [facility] Video Visit Today's visit was provided through telemedicine video conferencing: The location of the patient: Home The location of the provider: Home office Verbal consent: The concept of ???Telemedicine?? has been described to the patient.Patient has been informed of the anticipated benefits and possible risks. Patient understands the information provided regarding telemedicine, has had the opportunity to ask questions about this information, and all questions have been answered to patient???s satisfaction. Patient consents for the use of telemedicine in his/her medical care and authorizes the transmission of any relevant medical information to providers and their staff involved in patient???s medical or mental health care. Verbal consent obtained by myself or auxiliary staff: yes. Subjective: Chief Complaint(s): Balance problem (loss of hearing L ear); Other (states since last Friday she has no hearing in her L ear. Has ear prosthesis, some pain associated if I turn my head a certain way.); and Other (BP taken at this time, 202/110. Pt was speaking throughout and has increased pain ofbilat hips. 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 Has prosthesis. Increase in hearing loss since 06/25/2019. Last consult with ENT Dr. Alvino Michael. 2) Issues with balance - has done physical therapy in the past, no improvement. Does her own exercise including dance at home 3) Tinnitus, chronic. I have reviewed patient's tobacco history: reports that she has never smoked. She has never used smokeless tobacco. I have reviewed current problem list and current medications. ROS: Review of Systems Constitutional: Negative for fatigue and fever. HENT: Positive for tinnitus. Negative for congestion, ear discharge and ear pain. Cardiovascular: Negative for chest pain. Neurological: Negative for dizziness, light-headedness, numbness and headaches. Objective: Examination: Home Vitals: BP 140/86 Temp 36.6 ??C (97.8 ??F) Ht 163.8 cm (64.5) Wt (!) 110.2 kg (243 lb) BMI 41.07 kg/m?? Pertinent exam findings: GENERAL APPEARANCE: no acute distress, pleasant, cooperative. HEENT EYES:, conjunctiva clear. NECK: supple LUNGS: unlabored SKIN: warm & dry. NEUROLOGIC EXAM: alert & oriented x3 PSYCH: mood appropriate, affect full range Data reviewed with patient: Reviewed and/or ordered active problem list, medication list, allergies, family history, social history, health maintenance, notes from last encounter tests Results for orders placed or performed in visit on 05/10/19 (from the past 1344 hour(s)) LIPID PROFILE (INCLUDES CHOLESTEROL, TRIGLYCERIDES, HDL, LDL) Collection Time: 05/10/19 10:05 Result Value Ref Range Triglyceride 194 <150 mg/dL Cholesterol 234 (H) <200 mg/dL Chol/HDL Ratio 4.6 (H) 0 - 4.5 FASTING? - [facility] Yes HDL 50 40 - 60 mg/dL LDL CHOLESTEROL - [facility] 145 (H) 60 - 100 mg/dL Non HDL Cholesterol 184 mg/dl Results for orders placed or performed in visit on 05/10/19 (from the past 1344 hour(s)) COMPREHENSIVE METABOLIC PANEL (CMP) Collection Time: 05/10/19 10:05 Result Value Ref Range ALBUMIN - [facility] 4.2 3.4 - 4.9 g/dL ALKALINE PHOSPHATASE - [facility] 86 38 - 126 U/L BILIRUBIN TOTAL - [facility] 0.9 0.2 - 1.3 mg/dL BUN - [facility] 11 10 - 26 mg/dL CALCIUM - [facility] 9.6 8.5 - 10.5 mg/dL Chloride 105 96 - 110 mmol/L CO2 Total 28 22 - 32 mEq/L Creatinine 0.77 0.52 - 1.04 mg/dL eGFR >60 Anion Gap 7 0 - 18 GLUCOSE - [facility] 82 70 - 100 mg/dL Potassium 4.5 3.5 - 5.0 mEq/L Sodium 140 136 - 145 mEq/L TOTAL PROTEIN - [facility] 7.1 6.2 - 8.2 gm/dL SGOT/AST - [facility] 28 14 - 36 U/L SGPT/ALT - [facility] 27 0 - 35 U/L THYROID CASCADE Collection Time: 05/10/19 10:05 Result Value Ref Range TSH 2.26 0.46 - 4.68 uIU/mL Assessment & Plan: 1. Other hearing loss of left ear with unrestricted hearing of right ear Recommend ENT follow up after covid-19 pandemic. Go to ED if you develop any neurologic changes/deficits. 2. Tinnitus, unspecified laterality 3. Hypertension Continue current treatment, healthy diet, regular exercise. Follow up in 6 months. I spent a total of 18 minutes in discussion with the patient as described in the progress note. The following individuals and their role did participate in today's encounter visit: Provider: Maite Bright APRN Patient documented in this encounter Plan of Treatment Upcoming Encounters Date Type Department Care Team (Late st Contact Info) Description 07/07/2024 10:15 EDT Office Visit [facility] [address] [address] Maite Bright DNP [address] [place] [address] documented as of this encounter Visit Diagnoses Diagnosis Other hearing loss of left ear with unrestricted hearing of right ear- Primary Tinnitus, unspecified laterality documented in this encounter Care Teams Recreational Sports Director Relationship Specialty Start Date End Date Maite Bright DNP [address] [place] [phone] PCP - General 11/27/15 documented as of this encounter
--- OUTSIDE RECORDS SUMMARY | 2024-04-22 09:19 | XMS_ITS | Encounter Summary ---
Author Organization [facility] Address [address] [place] [address] Care Team Providers Care House Worker Name Role Phone Maite Bright DNP Primary Care Provider [phone] Reason for Visit * Reason Comments Other Encounter Details Date Type Department Care Team (Late st Contact Info) Description 06/03/[address] [facility] [address] [address] Maite Bright DNP [address] [place] [phone] Other Social History Tobacco Use Types Packs/Day [...] 10:12 EST documented as of this encounter Ordered Prescriptions Prescription Sig Dispense Quantity Refills Last Filled Start Date End Date levothyroxine (SYNTHROID) 100 mcg tabletIndications:Ac quired hypothyroidism TAKE 1 TABLET BY MOUTH EVERY DAY 90 Tab 3 06/05/2020 documented in this encounter Miscellaneous Notes * Telephone Encounter - Sarah Seay, RN - 06/05/2020 1023 EDT MALI - 05/19/20 NOV - 11/21/20 last TSH - 05/18/20 Rx(s) escribed to pharmacy. SARAH SEAY, RN documented in this encounter Plan of Treatment Upcoming Encounters Date Type Department Care Team (Late st Contact Info) Description 07/07/2024 10:[address] [facility] Family Medicine [address] [phone] Maite Bright DNP [address] [place] [phone] documented as of this encounter Visit Diagnoses Diagnosis Acquired hypothyroidism- Primary Unspecified hypothyroidism documented in this encounter Discontinued Medications Medication Sig Discontinue Reason Start Date End Da te levothyroxine (SYNTHROID) 100 mcg tablet TAKE 1 TABLET BY MOUTH EVERY DAY 06/11/2019 06/05/2020 documented as of this encounter Care Teams House Worker Relationship Specialty Start Date End Date Maite Bright DNP [address] [place] [phone] PCP - General 11/27/15 documented as of this encounter
--- OUTSIDE RECORDS SUMMARY | 2024-04-22 09:19 | XMS_ITS | Encounter Summary ---
Author Organization [facility] Address [address] [place] [address] Care Team Providers Care Solution Analyst Name Role Phone Maite Bright DNP Primary Care Provider [phone] Reason for Visit * Reason Comments Other Encounter Details Date Type Department Care Team (Late st Contact Info) Description 08/21/2020 Refill [facility] [address] [address] Maite Bright DNP [address] [place] [phone] Other Social History Tobacco Use Types Packs/Day [...] BY MOUTH EVERY DAY 90 Tablet 3 08/21/2020 11/21/2020 documented in this encounter Miscellaneous Notes * Telephone Encounter - Sarah Seay RN - 08/21/2020 1108 EDT MALI - 05/19/20 NOV - 11/21/20 last BMP - 05/18/20 Rx(s) escribed to pharmacy. SARAH SEAY, RN documented in this encounter Plan of Treatment Upcoming Encounters Date Type Department Care Team (Late st Contact Info) Description 07/07/2024 10:15 EDT Office Visit [facility] [address] [phone] Maite Bright DNP [address] [place] [address] documented as of this encounter Visit Diagnoses Not on filedocumented in this encounter Discontinued Medications Medication Sig Discontinue Reason Start Date End Da te irbesartan (AVAPRO) 150 mg tablet TAKE 1 TABLET BY MOUTH EVERY DAY 08/17/2019 08/21/2020 documented as of this encounter Care Teams Solution Analyst Relationship Specialty Start Date End Date Maite Bright DNP [address] [place] [phone] PCP - General 11/27/15 documented as of this encounter
--- OUTSIDE RECORDS SUMMARY | 2024-04-22 09:19 | XMS_ITS | Encounter Summary ---
Author Organization [facility] Address [address] [place] [address] Care Team Providers Care Deputy Sheriff Name Role Phone Maite Bright DNP Primary Care Provider [phone] Encounter Details Date Type Department Care Team (Latest Contact Info) Description 11/21/2020 Travel Social History Tobacco Use Types Packs/Day [...] have Coronavirus / COVID-19? No / Unsure 11/21/2020 10:18 EDT documented as of this encounter Plan of Treatment Upcoming Encounters Date Type Department Care Team (Late st Contact Info) Description 07/07/2024 10:15 EDT Office Visit [facility] [address] [place] [address] Maite Bright DNP [address] [place] [address] documented as of this encounter Visit Diagnoses Not on filedocumented in this encounter Care Teams Deputy Sheriff Relationship Specialty Start Date End Date Maite Bright DNP [address] [place] [phone] PCP - General 11/27/15 documented as of this encounter
--- OUTSIDE RECORDS SUMMARY | 2024-04-22 09:19 | XMS_ITS | Encounter Summary ---
Author Organization [facility] Address [address] [place] [address] Care Team Providers Care Drafting Layout Worker Name Role Phone Maite Bright DNP Primary Care Provider [phone] Encounter Details Date Type Department Care Team (Late st Contact Info) Description 05/18/2020 Results Only [address] [address] Maite Bright DNP [address] [place] [address] Social History Tobacco Use Types Packs/Day Years [...] Info) Description 07/07/2024 10:15 EDT Office Visit [address] [phone] Maite Bright DNP [address] [place] [phone] documented as of this encounter Procedures Procedure Name Priority Date/Time Associated Diagnosis Comments TSH Routine 05/18/2020 8:58 EST LIPID PROFILE (INCLUDES CHOLESTEROL, TRIGLYCERIDES, HDL, LDL) Routine 05/18/2020 8:57 EST COMPREHENSIVE METABOLIC PANEL (CMP) Routine 05/18/2020 8:57 EST documented in this encounter Results * TSH (05/18/2020 8:58 EST) Pathologist [facility] THYROID [facility]IM [facility] - [facility] 2.44 0.46 - 4.68 uIU/ml 05/18/2020 11:04 EST [facility] Comment: The results of this assay can be falsely lowered due to the consumption of Biotin. 05/18/2020 8:58 EST 05/18/2020 8:58 EST Narrative [facility] - 05/18/2020 11:04 EST Does PT Have a Latex Allergy? NO Maite Bright [facility] CHEMISTRY & BLOOD GAS ORDERABLES Final Result Performing Organization Address City/State/[facility] Co de Phone Number [facility] [address] [place] [address] * (ABNORMAL) LIPID PROFILE (INCLUDES CHOLESTEROL, TRIGLYCERIDES, HDL, LDL) (05/18/2020 8:57 EST) Pathologist [facility] Triglyceride 171 <150 mg/dL 05/18/2020 10:31 [facility] Comment: Adult: Normal: ?<150 mg/dl ? Borderline High: 150-199 mg/dl ? High: ?200-499 mg/dl ? Very High: >df=577 Cholesterol 280(H) <200 mg/dL 05/18/2020 10:31 [facility] Comment: Acceptable: ??<200 Borderline: ??200-239 High: ?> or = 240 Chol/HDL Ratio 4.9(H) 0 - 4.5 05/18/2020 10:31 [facility] Comment: DESIRABLE RATIO IS LESS THAN 4.1 PATIENTS ARE CONSIDERED AT RISK: WOMEN RATIO >5 MEN RATIO >6 FASTING? - [facility] Yes 8:58 EST [facility] HDL 57 40 - 60 mg/dL 05/18/2020 10:31 [facility] Comment: ?? Reference Range Low: ? < 40 ??mg/dL Normal: ??40-60 mg/dL High: ?>= 60 mg/dL LDL CHOLESTEROL - [facility] 189(H) 60 - 100 mg/dL 05/18/2020 10:31 [facility] Non HDL Cholesterol 223 mg/dl 05/18/2020 10:31 [facility] Comment: Desirable: ?Less than 130 Borderline High: ??130-159 High: ? 160-189 Very High: ?Greater than or equal to 190 05/18/2020 8:57 EST 05/18/2020 8:57 EST Narrative [facility] - 05/18/2020 10:31 EST Does PT Have a Latex Allergy? NO us Maite Bright [facility] CHEMISTRY & BLOOD GAS ORDERABLES Final Result [facility] [address] [place] [address] * (ABNORMAL) COMPREHENSIVE METABOLIC PANEL (CMP) (05/18/2020 8:57 EST) Albumin % 4.7 3.4 - 4.9 g/dL 05/18/2020 10:31 [facility] ALKALINE PHOSPHATASE - [facility] 113 38 - 126 U/L 05/18/2020 10:31 [facility] BILIRUBIN TOTAL 1.1 0.2 - 1.3 mg/dL 05/18/2020 10:31 [facility] BUN - [facility] 11 10 - 26 mg/dL 05/18/2020 10:31 [facility] CALCIUM - [facility] 10.0 8.5 - 10.5 mg/dL 05/18/2020 10:31 [facility] Chloride 106 96 - 110 mmol/L 05/18/2020 10:31 [facility] CO2 Total 27 22 - 32 mEq/L 05/18/2020 10:31 [facility] CREATININE 0.75 0.52 - 1.04 mg/dL 05/18/2020 10:31 [facility] eGFR >60 05/18/2020 10:31 [facility] Comment: Chronic renal impairment is defined as GFR <60 Multiply result by 1.210 for patients. eGFR calculated using the IDMS-traceable MDRD Study Equation. ??(effective 01/10/2014) Anion Gap 10 0 - 18 05/18/2020 10:31 [facility] GLUCOSE - [facility] 77 70 - 100 mg/dL 05/18/2020 10:31 [facility] Potassium 4.4 3.5 - 5.0 mEq/L 05/18/2020 10:31 [facility] Sodium 143 136 - 145 mEq/L 05/18/2020 10:31 [facility] TOTAL PROTEIN - [facility] 7.6 6.2 - 8.2 gm/dL 05/18/2020 10:31 [facility] SGOT/AST - [facility] 35 14 - 36 U/L 05/18/2020 10:31 [facility] SGPT/ALT - [facility] 38(H) 0 - 35 U/L 10:31 [facility] 05/18/2020 8:57 EST 05/18/2020 8:57 [facility] - 05/18/2020 10:31 EST Does PT Have a Latex Allergy? NO us Maite Bright DNP CHEMISTRY & BLOOD GAS ORDERABLES Final Result [facility] [address] [place] [address] documented in this encounter Visit Diagnoses Not on filedocumented in this encounter Care Teams Drafting Layout Worker Relationship Specialty Start Date End Date Maite Bright DNP [address] [place] [phone] PCP - General 11/27/15 documented as of this encounter
--- OUTSIDE RECORDS SUMMARY | 2024-04-22 09:19 | XMS_ITS | Encounter Summary ---
Author Organization [facility] Address [address] [place] [address] Care Team Providers Care Operations Research Manager Name Role Phone Maite Bright DNP Primary Care Provider [phone] Encounter Details Date Type Department Care Team (Late st Contact Info) Description 10/13/2017 Historical Results Only [facility] - Main [address] [phone] Maite Bright DNP [address] [place], [place] [id number] Social History Tobacco Use Types Packs/Day Years [...] Info) Description 07/07/2024 10:15 EDT Office Visit [facility] Medicine [address] [address] Maite Bright DNP [address] [place], [place] [address] documented as of this encounter Procedures Procedure Name Priority Date/Time Associated Diagnosis Comments TSH Routine 10/13/2017 11:28 EDT LIPID PROFILE (INCLUDES CHOLESTEROL, TRIGLYCERIDES, HDL, LDL) Routine 10/13/2017 11:28 EDT COMPREHENSIVE METABOLIC PANEL (CMP) Routine 10/13/2017 11:28 EDT documented in this encounter Results * (ABNORMAL) LIPID PROFILE (INCLUDES CHOLESTEROL, TRIGLYCERIDES, HDL, LDL) (10/13/2017 11:28 EDT) [facility] Signature Triglyceride 165 <150 mg/dL 10/13/2017 13:37 [facility] Comment: Adult: Normal: ?<150 mg/dl ? Borderline High: 150-199 mg/dl ? High: ?200-499 mg/dl ? Very High: >fg=792 Cholesterol 251(H) <200 mg/dL 10/13/2017 13:37 [facility] Comment: Acceptable: ??<200 Borderline: ??200-239 High: ?> or = 240 Chol/HDL Ratio 4.0 0 - 4.5 10/13/2017 13:37 [facility] Comment: DESIRABLE RATIO IS LESS THAN 4.1 PATIENTS ARE CONSIDERED AT RISK: WOMEN RATIO >5 MEN RATIO >6 FASTING? - [facility] Yes 8 11:29 [facility] HDL 62(H) 40 - 60 mg/dL 10/13/2017 13:37 [facility] Comment: ?? Reference Range Low: ? < 40 ??mg/dL Normal: ??40-60 mg/dL High: ?>= 60 mg/dL LDL CHOLESTEROL - [facility] 156(H) 60 - 100 mg/dL 10/13/2017 13:37 [facility] Non HDL Cholesterol 189 mg/dl 10/13/2017 13:37 [facility] Comment: Desirable: ?Less than 130 Borderline High: ??130-159 High: ? 160-189 Very High: ?Greater than or equal to 190 10/13/2017 11:2 8 EDT 10/13/2017 11:28 EDT Narrative [facility] - 10/13/2017 13:37 EDT Does PT Have a Latex Allergy? NO us Maite Bright DNP CHEMISTRY & BLOOD GAS ORDERABLES Final Result [facility] * COMPREHENSIVE METABOLIC PANEL (CMP) (10/13/2017 11:28 EDT) Albumin % 4.0 3.4 - 4.9 g/dL 10/13/2017 13:37 [facility] ALKALINE PHOSPHATASE - [facility] 86 38 - 126 U/L 10/13/2017 13:37 [facility] BILIRUBIN TOTAL 0.9 0.2 - 1.3 mg/dL 10/13/2017 13:37 [facility] BUN - [facility] 11 10 - 26 mg/dL 10/13/2017 13:37 [facility] CALCIUM - [facility] 9.5 8.5 - 10.5 mg/dL 10/13/2017 13:37 [facility] Chloride 106 96 - 110 mmol/L 10/13/2017 13:37 [facility] CO2 Total 22 22 - 32 mEq/L 10/13/2017 13:37 [facility] CREATININE 0.74 0.52 - 1.04 mg/dL 10/13/2017 13:37 [facility] eGFR >60 10/13/2017 13:37 [facility] Comment: Chronic renal impairment is defined as GFR <60 Multiply result by 1.210 for patients. eGFR calculated using the IDMS-traceable MDRD Study Equation. ??(effective 01/10/2014) Anion Gap 11 0 - 18 10/13/2017 13:37 [facility] GLUCOSE - [facility] 84 70 - 100 mg/dL 10/13/2017 13:37 [facility] Potassium 4.4 3.5 - 5.0 mEq/L 10/13/2017 13:37 EDT [facility] Sodium 139 136 - 145 mEq/L 10/13/2017 13:37 EDT [facility] TOTAL PROTEIN - [facility] 7.2 6.2 - 8.2 gm/dL 10/13/2017 13:37 EDT [facility] SGOT/AST - [facility] 17 14 - 36 U/L 10/13/2017 13:37 EDT [facility] SGPT/ALT - [facility] 22 9 - 52 U/L 8 13:37 EDT [facility] 10/13/2017 11:2 8 EDT 10/13/2017 11:28 EDT Narrative [facility] - 10/13/2017 13:37 EDT Does PT Have a Latex Allergy? NO us Maite Bright [facility] CHEMISTRY & BLOOD GAS ORDERABLES Final Result Performing Organization Address City/[facility] [address]/ZIP Co de Phone Number [facility] * TSH (10/13/2017 11:28 EDT) THYROID STIM HORMONE - [facility] 1.70 0.46 - 4.68 uIU/ml 10/13/2017 13:51 EDT [facility] Comment: The results of this assay can be falsely lowered due to the consumption of Biotin. 10/13/2017 11:2 8 EDT 10/13/2017 11:28 EDT Narrative [facility] - 10/13/2017 13:51 EDT Does PT Have a Latex Allergy? NO us Maite Bright [facility] CHEMISTRY & BLOOD GAS ORDERABLES Final Result [facility] documented in this encounter Visit Diagnoses Not on filedocumented in this encounter Care Teams Operations Research Manager Relationship Specialty Start Date End Date Maite Bright DNP [address] [place] [id number] PCP - General 11/27/15 documented as of this encounter
--- OUTSIDE RECORDS SUMMARY | 2024-04-22 09:19 | XMS_ITS | Encounter Summary ---
Author Organization [facility] Address [address] [place] [id number] Care Team Providers Care Assembling Fabricator Name Role Phone Maite Bright DNP Primary Care Provider [phone] Reason for Visit * Reason Comments Hypertension Encounter Details Date Type Department Care Team (Latest Contact Info) Description 05/12/2019 16:20 EST Office Visit [facility] Integrative Family Medicine [address] [address] Maite Bright DNP [address] [place] [phone] Essential hypertension (Primary Dx); Acquired hypothyroidism; Visit for screening mammogram Social History Tobacco Use Types Packs/Day Years [...] Sign Reading Time Taken Comments Blood Pressure 129/84 05/12/2019 1619 EST Pulse 76 05/12/2019 1619 EST Temperature - - Respiratory Rate 16 05/12/2019 1619 EST Oxygen Saturation 99% 05/12/2019 1619 EST Inhaled Oxygen Concentration - - Weight 110.6 kg (243 lb 14.4 oz) 05/12/2019 1619 EST Height 162.6 cm (5' 4.02) 05/12/2019 1619 EST Body Mass Index 41.84 05/12/2019 1619 EST documented in this encounter Progress Notes * Maite Bright, RETREAD TECHNICIAN - 05/12/2019 1620 EST [facility] Primary Care Subjective: Chief Complaint(s): Hypertension HPI: HPI Hypertension: Meli is here for hypertension follow up. Her last appointment was 08/14/2019. Her blood pressure waswell controlled at that time. She is taking irbesartan 150mg daily. Home blood pressure checks: checking regularly, SBP 120-130, DBP 80-90. Hypertension medication compliance: compliant. Med side effects: none. Exercise: Dancing, walking Diet: Healthy Weight changes: None I have reviewed patient's tobacco history: reports that she has never smoked. She does not have anysmokeless tobacco history on file. I have reviewed current problem list and current medications. Medications: Current Outpatient Medications on File Prior to Visit Medication Sig Dispense Refill ??? betamethasone dipropionate (DIPROLENE) 0.05 % ointment Apply 1 application topically 2 times daily. to eczema on body/extremities ??? CANNABIDIOL, CBD, EXTRACT ORAL ??? irbesartan (AVAPRO) 150 mg tablet Take 150 mg by mouth daily. ??? levothyroxine (SYNTHROID) 100 mcg tablet Take 1 Tab by mouth daily. ??? MEDICAL MARIJUANA 2 times daily as needed. As directed ??? NATURAL BEE POLLEN ORAL Take by mouth. ??? UNABLE TO FIND Multivitamin one tablet , Sig: orally daily No current facility-administered medications on file prior to visit. ROS: Review of Systems Respiratory: Negative for cough. Cardiovascular: Negative for chest pain, palpitations and leg swelling. Neurological: Negative for headaches. Objective: Examination: Vitals: BP 129/84 Pulse 76 Resp 16 Ht 162.6 cm (64.02) Wt (!) 110.6 kg (243 lb 14.4 oz) SpO2 99% BMI 41.84 kg/m?? Body mass index is 41.84 kg/m??. Physical Exam GENERAL APPEARANCE: no acute distress, pleasant, cooperative. HEENT EYES:, conjunctiva clear. ORAL CAVITY: moist mucous membranes. NECK: supple, no lymphadenopathy. HEART: normal S1S2, no murmurs. LUNGS: good air entry bilaterally, clear to auscultation. SKIN: warm & dry. NEUROLOGIC EXAM: alert & oriented x3, gait normal. Results for orders placed or performed in visit on 05/10/19 (from the past 168 hour(s)) LIPID PROFILE (INCLUDES CHOLESTEROL, TRIGLYCERIDES, HDL, [...] in visit on 05/10/19 (from the past 168 hour(s)) COMPREHENSIVE METABOLIC [...] 7.1 6.2 - 8.2 gm/dL SGOT/AST - [facility] 28 14 - 36 U/L SGPT/ALT - [facility] 27 0 - 35 U/L THYROID CASCADE Collection Time: 05/10/19 10:05 Result Value Ref Range TSH 2.26 0.46 - 4.68 uIU/mL Data reviewed with patient (past results): Reviewed and/or ordered active problem list, medication list, social history, health maintenance, lab results tests Assessment & Plan: Meli was seen today for hypertension. Diagnoses and all orders for this visit: Essential hypertension Comments: Cotinue current treatment. Acquired hypothyroidism Comments: TSH reviewed, at goal. Continue current treatment. Visit for screening mammogram Comments: Mammogram ordered. Orders: - MA BREAST SCREENING ALANNA BILATERAL; Future Return in about 6 months (around 11/12/2019) for HTN. documented in this encounter Plan of Treatment Upcoming Encounters Date Type Department Care Team (Late st Contact Info) Description 07/07/2024 10:15 EDT Office Visit [address] [address] Maite Bright DNP [address] [place] [address] documented as of this encounter Visit Diagnoses Diagnosis Essential hypertension- Primary Unspecified essential hypertension Acquired hypothyroidism Unspecified hypothyroidism Visit for screening mammogram Other screening mammogram documented in this encounter Discontinued Medications Medication Sig Discontinue Reason Start Date End Da te losartan (COZAAR) 100 mg tablet Take 1 Tab by mouth daily for 90 days. Alternate therapy 02/22/2019 05/12/2019 documented as of this encounter Historical Medications * This list may reflect changes made after this encounter. NATURAL BEE POLLEN ORAL Take by mouth. irbesartan (AVAPRO) 150 mg tablet Take 150 mg by mouth daily. 02/26/2019 08/17/2019 added in this encounter Care Teams Assembling Fabricator Relationship Specialty Start Date End Date Maite Bright DNP [address] [place] [address] PCP - General 11/27/15 documented as of this encounter
--- OUTSIDE RECORDS SUMMARY | 2024-04-22 09:19 | XMS_ITS | Encounter Summary ---
Author Organization [facility] Address [address] [place] [address] Care Team Providers Care Implementation Engineer Name Role Phone Maite Bright DNP Primary Care Provider [phone] Encounter Details Date Type Department Care Team (Late Contact Info) Description 08/19/2017 Historical Results Only [facility] Radiology Results [address] [place] [address] Maite Bright DNP [address] [place], [place] [address] Social History Tobacco Use Types Packs/Day Years [...] Info) Description 07/07/2024 10:15 EDT Office Visit [facility] Integrative Family Medicine [facility] [address] [place] [address] Maite Bright DNP [address] [place], [place] [phone] documented as of this encounter Procedures Procedure Name Priority Date/Time Associated Diagnosis Comments MA BREAST SCREENING ALANNA BILATERAL 08/19/2017 9:31 EDT documented in this encounter Results * MA BREAST SCREENING ALANNA BILATERAL (08/19/2017 9:31 EDT) Anatomical Region Laterality Modality Breast Bilateral Other 08/19/2017 9:31 EDT Narrative 08/19/2017 9:32 EDT ? EXAM: MAMMOGRAM/MAMMO BILATERAL SCREEN W ??EX. D/ (1200) ? CLINICAL INFORMATION: ? Z12.31 SCREENING ? INDICATION: Z12.31 SCREENING ??SCREENING May 17, 17 ? TECHNIQUE: ??Full field digital whole breast 2D (C-view) and 3D CC and ? MLO views of both breasts were obtained. CAD technology was utilized. ? FINDINGS: ??The fibroglandular patterns of the breasts are normal. ? There has been no change when compared to previous mammograms and ? there is no mammographic evidence of cancer. The breast tissue is of ? scattered density. ? FINAL ASSESSMENT BILATERAL BREAST: ??BI-RADS Category 1 - Negative. ? Routine mammographic follow-up is recommended. ? These results will be communicated to your patient via a lay letter ? from Radiology. ??If any additional imaging is needed we will contact ? your patient directly. ? REPORT SIGNED IN OTHER VENDOR SYSTEM 08/19/2017 ?Reported By: Maury Montelongo MD ? CC: ? Transcribed Date/Time: 08/19/2017 (0932) ? Doubling Machine Operator: ? Printed Date/Time: 08/28/2018 (6442) ? PAGE 1 ? Signed Report ? Procedure Note Maury Montelongo MD - 01/14/2019 EXAM: MAMMOGRAM/MAMMO BILATERAL SCREEN W EX. D/ (1200) CLINICAL INFORMATION: Z12.31 SCREENING INDICATION: Z12.31 SCREENING SCREENING July 24 TECHNIQUE: Full field digital whole breast 2D (C-view) and 3D CCand MLO views of both breasts were obtained. CAD technology wasutilized. FINDINGS: The fibroglandular patterns of the breasts are normal. There has been no change when compared to previous mammograms and there is no mammographic evidence of cancer. The breast tissue isof scattered density. FINAL ASSESSMENT BILATERAL BREAST: BI-RADS Category 1 - Negative. Routine mammographic follow-up is recommended. These results will be communicated to your patient via a lay letter from Radiology. If any additional imaging is needed we willcontact your patient directly. REPORT SIGNED IN OTHER VENDOR SYSTEM 08/19/2017 Reported By: Maury Montelongo MD CC: Transcribed Date/Time: 08/19/2017 (0932) Doubling Machine Operator: Printed Date/Time: 08/28/2018 (0089) PAGE 1 Signed Report Maite Bright DNP IM MAMMOGRAPHY ORDERABLES Final Result documented in this encounter Visit Diagnoses Not on filedocumented in this encounter Care Teams Implementation Engineer Relationship Specialty Start Date End Date Maite Bright DNP [address] [place] [address] PCP - General 11/27/15 documented as of this encounter
--- OUTSIDE RECORDS SUMMARY | 2024-04-22 09:19 | XMS_ITS | Encounter Summary ---
Author Organization [facility] Address [address] [place] [address] Care Team Providers Care Chocolate Maker Name Role Phone Maite Bright DNP Primary Care Provider [phone] Reason for Visit * Reason Comments Follow-up HTN Encounter Details Date Type Department Care Team (Latest Contact Info) Description 11/21/2020 10:[address] [facility] Integrative Family Medicine [address] [address] Maite Bright DNP [address] [place] [phone] Essential hypertension (Primary Dx); Acquired hypothyroidism; Mixed hyperlipidemia Social History Tobacco [...] 10:18 EDT documented as of this encounter Last Filed Vital Signs Vital Sign Reading Time Taken Comments Blood Pressure 136/78 11/21/2020 1036 EDT Pulse 66 11/21/2020 1036 EDT Temperature - - Respiratory Rate 16 11/21/2020 1036 EDT Oxygen Saturation 100% 11/21/2020 1036 EDT Inhaled Oxygen Concentration - - Weight 104.1 kg (229 lb 9.6 oz) 11/21/2020 1036 EDT Height 163.8 cm (5' 4.49) 11/21/2020 1036 EDT Body Mass Index 38.82 11/21/2020 1036 EDT documented in this encounter Ordered Prescriptions Prescription Sig Dispense Quantity Refills Last Filled Start Date End Date levothyroxine (SYNTHROID) 100 mcg tabletIndications:Ac quired hypothyroidism Take 1 Tablet by mouth daily. 90 Tablet 4 11/21/2020 2 irbesartan (AVAPRO) 150 mg tabletIndications:Es sential hypertension Take 1 Tablet by mouth daily. 90 Tablet 4 11/21/2020 2 documented in this encounter Progress Notes * Maite Bright, ANDREW - 11/21/2020 1040 EDT [facility] Raissa Espino Subjective: Chief Complaint(s): Follow-up (HTN) HPI Last appointment 05/18/2020. Compliant with medication, irbestartan 150mg/day.?No side effects reported. ??She is actively working on losing weight and has had success with this. ??She eats a healthy diet and exercises regularly. ?? Follow-up hypothyroidism. ??She is compliant with taking levothyroxine 100 mcg daily. ??She denies any symptoms of hypo-or hyperthyroid I have reviewed patient's tobacco history: reports [...] body/extremities ??? CANNABIDIOL, CBD, EXTRACT ORAL ??? Lactobac no.41/Bifidobact no.7 (PROBIOTIC-10 ORAL) Take by mouth. ??? magnesium oxide (MAG-OX) 400 mg (241.3 mg magnesium) tablet Take 400 mg by mouth daily. ??? NATURAL BEE POLLEN ORAL Take by mouth. ??? UNABLE TO FIND Multivitamin one tablet , Sig: orally daily No current facility-administered medications on file prior to visit. ROS Constitutional: Negative for??chills,??fatigue,??fever??and unexpected weight change. Respiratory: Negative for??cough??and shortness of breath. ?? Cardiovascular: Negative for??chest pain??and leg swelling. Endocrine: Negative for??cold intolerance??and heat intolerance. Neurological: Negative for??dizziness??and headaches.?? Objective: Examination: Vitals: BP 136/78 Pulse 66 Resp 16 Ht 163.8 cm (64.49) Wt (!) 104.1 kg (229 lb 9.6 oz) SpO2 100% BMI 38.82 kg/m?? Body mass index is 38.82 kg/m??. Physical Exam ?? GENERAL APPEARANCE:??appears uncomfortable due to CRPS flare, pleasant, cooperative.?HEENT??EYES:, conjunctiva clear.?NECK:??supple, no lymphadenopathy, no thyromegaly ?HEART:??normal S1S2, no murmurs.?LUNGS:??good air entry bilaterally, clear to auscultation.?SKIN:??warm &??dry.?NEUROLOGIC EXAM:??alert &??oriented x3, gait normal.?? Data reviewed with patient (past results): Reviewed and/or ordered active problem list, medication list, allergies, social history, health maintenance, lab results tests Assessment & Plan: 1. Essential hypertension Continue irbesartan 150mg/day. Annual renal function and electrolytes ordered w/ your fasting labs prior to your next appointment. - irbesartan (AVAPRO) 150 mg tablet; Take 1 Tablet by mouth daily. Dispense: 90 Tablet; Refill: 4 - COMPREHENSIVE METABOLIC PANEL (CMP); Future 2. Acquired hypothyroidism Continue levothyroxine 100mcg/day. Annual TSH in May. - levothyroxine (SYNTHROID) 100 mcg tablet; Take 1 Tablet by mouth daily. Dispense: 90 Tablet; Refill: 4 - COMPREHENSIVE METABOLIC PANEL (CMP); Future - TSH; Future 3. Mixed hyperlipidemia Fasting lipids with labs in 6 months. - LIPID PROFILE (INCLUDES CHOLESTEROL, TRIGLYCERIDES, HDL, LDL); Future Return in about 6 months (around 05/21/2021) for HTN, labs. Speech recognition software was used to complete this progress note. Typographical errors may be present. documented in this encounter Plan of Treatment Upcoming Encounters Date Type Department Care Team (Late st Contact Info) Description 07/07/2024 10:15 EDT Office Visit [address] [address] Maite Bright DNP [address] [place] [phone] documented as of this encounter Results * TSH (06/14/2021 8:54 EDT) [facility] TSH 1.31 0.47 - 4.68 mIU/L 06/14/2021 11:32 EDT [facility] Blood VENOUS BLOOD / Unknown Venipuncture / Unknown 06/14/2021 8:54 EDT 06/14/2021 10:15 EDT Narrative [facility] - 06/14/2021 11:32 EDT The results of this assay can be falsely lowered due to the consumption of Biotin. Maite Bright DNP CHEMISTRY & BLOOD GAS ORDERABLES Final Result [facility] [address] [place] [address] * (ABNORMAL) LIPID PROFILE (INCLUDES CHOLESTEROL, TRIGLYCERIDES, HDL, LDL) (06/14/2021 8:54 EDT) [facility] Cholesterol 235(H) <200 mg/dL 06/14/2021 10:58 EDT [facility] Comment:Note that therapeuti c goals will differ between patients based on cardiac risk factors and current medical therapy. HDL 68 >=50 mg/dL 06/14/2021 10:58 EDT [facility] Comment:Note that therapeuti c goals will differ between patients based on cardiac risk factors and current medical therapy. LDL, Calculated 142 <160 mg/dL 10:58 EDT [facility] Comment:Note that therapeuti c goals will differ between patients based on cardiac risk factors and current medical therapy. Triglyceride 127 <=150 mg/dL 06/14/2021 10:58 T [facility] Comment:Note that therapeuti c goals will differ between patients based on cardiac risk factors and current medical therapy. Chol/HDL Ratio 3.5 See Note 06/14/2021 10:58 [facility] Comment: NOTE: Desirable Ratio = <4.1 Patient At Risk Ratio = >5.0(Males) ?>6.0(Females) Non HDL Cholesterol 167(H) <160 mg/dL 06/14/2021 10:58 EDT [facility] Comment:Note that therapeuti c goals will differ between patients based on cardiac risk factors and current medical therapy. Blood VENOUS BLOOD / Unknown Venipuncture / Unknown 06/14/2021 8:54 EDT 06/14/2021 10:15 EDT us Maite Bright DNP CHEMISTRY & BLOOD GAS ORDERABLES Final Result [facility] [address] [place] [address] * (ABNORMAL) COMPREHENSIVE METABOLIC PANEL (CMP) (06/14/2021 8:54 EDT) Pathologist [facility] Sodium 142 136 - 145 mmol/L 06/14/2021 10:58 EDT [facility] Potassium 4.3 3.5 - 5.0 mmol/L 06/14/2021 10:58 [facility] Chloride 104 96 - 110 mmol/L 06/14/2021 10:58 [facility] CO2 Total 28 22 - 32 mmol/L 06/14/2021 10:58 [facility] Glucose 82 70 - 100 mg/dL 06/14/2021 10:58 [facility] BUN 9(L) 10 - 26 mg/dL 06/14/2021 10:58 [facility] Creatinine 0.76 0.52 - 1.04 mg/dL 06/14/2021 10:58 [facility] eGFR 94 >60 mL/min/1.7 3m2 06/14/2021 10:58 [facility] Total Protein 7.5 6.3 - 8.2 g/dL 06/14/2021 10:58 [facility] Albumin 4.4 3.4 - 4.9 g/dL 06/14/2021 10:58 [facility] Alkaline Phosphatase 90 38 - 126 U/L 06/14/2021 10:58 [facility] AST 27 15 - 46 U/L 06/14/2021 10:58 [facility] ALT 25 <35 U/L 06/14/2021 10:58 [facility] Bilirubin, Total 1.0 <1.4 mg/dL 06/15/19 10:58 [facility] Calcium 9.6 8.5 - 10.5 mg/dL 06/14/2021 10:58 [facility] Albumin/Globulin Ratio 1.4 1.0 - 2.5 06/14/2021 10:58 [facility] Anion Gap 10 5 - 14 06/14/2021 10:58 [facility] Blood VENOUS BLOOD / Unknown Venipuncture / Unknown 06/14/2021 8:54 EDT 06/14/2021 10:15 EDT Maite Bright [facility] CHEMISTRY & BLOOD GAS ORDERABLES Final Result [facility] [address] [place] [address] documented in this encounter Visit Diagnoses Diagnosis Essential hypertension- Primary Unspecified essential hypertension Acquired hypothyroidism Unspecified hypothyroidism Mixed hyperlipidemia documented in this encounter Discontinued Medications Medication Sig Discontinue Reason Start Date End Da te levothyroxine (SYNTHROID) 100 mcg tabletIndications:Acquired hypothyroidism TAKE 1 TABLET BY MOUTH EVERY DAY Reorder 06/05/2020 11/21/2020 irbesartan (AVAPRO) 150 mg tablet TAKE 1 TABLET BY MOUTH EVERY DAY Reorder 08/21/2020 11/21/2020 documented as of this encounter Care Teams Chocolate Maker Relationship Specialty Start Date End Date Maite Bright DNP [address] [place] [id number] PCP - General 11/27/15 documented as of this encounter
--- OUTSIDE RECORDS SUMMARY | 2024-04-22 09:19 | XMS_ITS | Encounter Summary ---
Author Organization [facility] Address [address] [place] [address] Care Team Providers Care Nurses Medical Assistants Phlebotomists Name Role Phone Maite Bright DNP Primary Care Provider [phone] Encounter Details Date Type Department Care Team (Late st Contact Info) Description 05/10/2019 Results Only [address] [address] Maite Bright DNP [address] [place] [address] [phone] Social History Tobacco Use Types Packs/Day Years [...] Info) Description 07/07/2024 10:15 EDT Office Visit [address] [address] Maite Bright DNP [address] [place] [phone] documented as of this encounter Procedures Procedure Name Priority Date/Time Associated Diagnosis Comments LIPID PROFILE (INCLUDES CHOLESTEROL, TRIGLYCERIDES, HDL, LDL) Routine 05/10/2019 10:05 EST documented in this encounter Results * (ABNORMAL) LIPID PROFILE (INCLUDES CHOLESTEROL, TRIGLYCERIDES, HDL, LDL) (05/10/2019 10:05 EST) Triglyceride 194 <150 mg/dL 05/10/2019 11:[address] [facility] Comment: Adult: Normal: ?<150 mg/dl ? Borderline High: 150-199 mg/dl ? High: ?200-499 mg/dl ? Very High: >vn=473 Cholesterol 234(H) <200 mg/dL 05/10/2019 11:03 [facility] Comment: Acceptable: ??<200 Borderline: ??200-239 High: ?> or = 240 Chol/HDL Ratio 4.6(H) 0 - 4.5 05/10/2019 11:03 [facility] Comment: DESIRABLE RATIO IS LESS THAN 4.1 PATIENTS ARE CONSIDERED AT RISK: WOMEN RATIO >5 MEN RATIO >6 FASTING? - [facility] Yes 0 10:05 [facility] HDL 50 40 - 60 mg/dL 05/10/2019 11:03 [facility] Comment: ?? Reference Range Low: ? < 40 ??mg/dL Normal: ??40-60 mg/dL High: ?>= 60 mg/dL LDL CHOLESTEROL - [facility] 145(H) 60 - 100 mg/dL 05/10/2019 11:03 [facility] Non HDL Cholesterol 184 mg/dl 05/10/2019 11:03 [facility] Comment: Desirable: ?Less than 130 Borderline High: ??130-159 High: ? 160-189 Very High: ?Greater than or equal to 190 05/10/2019 10:0 5 EST 05/10/2019 10:[address] [facility] - 05/10/2019 11:03 EST Does PT Have a Latex Allergy? NO Maite Bright DNP CHEMISTRY & BLOOD GAS ORDERABLES Final Result [facility] documented in this encounter Visit Diagnoses Not on filedocumented in this encounter Care Teams Nurses Medical Assistants Phlebotomists Relationship Specialty Start Date End Date Maite Bright DNP [address] [place] [address] PCP - General 11/27/15 documented as of this encounter
--- OUTSIDE RECORDS SUMMARY | 2024-04-22 09:19 | XMS_ITS | Encounter Summary ---
Author Organization [facility] Address [address] [place] [address] Care Team Providers Care Ice Scraper Name Role Phone Kaila Maite KORINA Primary Care Provider [phone] Encounter Details Date Type Department Care Team (Latest Contact Info) Description 08/18/2017 20:15 EDT - 08/18/2017 23:59 EDT Hospital Encounter [facility] [address] [place] [address] Unknown, Provider, MD Discharge Disposition: Home or Self Care Social [...] this encounter Medications at Time of Discharge ibuprofen (MOTRIN) 200 mg tablet Take 200 mg by mouth every 6 hours. 02/13/2019 irbesartan (AVAPRO) 150 mg tablet Take 1 Tab by mouth daily. 09/16/2016 02/22/2019 levothyroxine (SYNTHROID) 100 mcg tablet Take 1 Tab by mouth daily. 12/20/2016 06/11/2019 losartan (COZAAR) 50 mg tablet Take 50 mg by mouth daily. 02/13/2019 MEDICAL MARIJUANA 2 times daily as needed. As directed 12/25/2015 11/12/2019 melatonin 3 mg tablet Take 3 mg by mouth at bedtime. 02/13/2019 turmeric root extract 500 mg capsule Take by mouth. 02/13/2019 documented as of this encounter Discharge Disposition Disposition Code Departure Means Destination Home or Self Prison documented in this encounter Plan of Treatment Upcoming Encounters Date Type Department Care Team (Late st Contact Info) Description 07/07/2024 10:15 EDT Office Visit [facility] [address] [address] Maite Bright DNP [address] [place] [address] documented as of this encounter Visit Diagnoses Not on filedocumented in this encounter Care Teams Ice Scraper Relationship Specialty Start Date End Date Maite Bright DNP [address] [place] [address] PCP - General 11/27/15 documented as of this encounter
--- OUTSIDE RECORDS SUMMARY | 2024-04-22 09:19 | XMS_ITS | Encounter Summary ---
Author Organization [facility] Address [address] [place] [address] Care Team Providers Care Creative Services Specialist Name Role Phone Maite Bright DNP Primary Care Provider [phone] Encounter Details Date Type Department Care Team (Late Contact Info) Description 06/22/2019 Abstract [facility] Adult Primary Care - [address] [phone] Cht Panel Coordinator, [facility] Social History Tobacco Use Types Packs/Day Years [...] Upcoming Encounters Date Type Department Care Team ([facility] Contact Info) Description 07/07/2024 10:15 EDT Office Visit [facility] [address] [place], [place] [phone] Maite Bright DNP [address] [place] [address] documented as of this encounter Procedures Procedure Name Priority Date/Time Associated Diagnosis Comments COLONOSCOPY PROCEDURE Routine 06/03/2018 documented in this encounter Results * COLONOSCOPY PROCEDURE (06/03/2018) Colonoscopy Colonoscopy, External Comment:Normal, repeat in 10 yrs Anatomical Region Laterality Modality Endoscopy us Historical Provider GI PROCEDURE ORDERABLES F inal Result documented in this encounter Visit Diagnoses Not on filedocumented in this encounter Care Teams Creative Services Specialist Relationship Specialty Start Date End Date Maite Bright DNP [address] [place] [address] PCP - General 11/27/15 documented as of this encounter
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
--- OUTSIDE RECORDS SUMMARY | 2024-04-22 09:19 | XMS_ITS | Encounter Summary ---
Author Organization [facility] Address [address] [place] [address] Care Team Providers Care Swimming Coach Name Role Phone Maite Bright DNP Primary Care Provider [phone] Reason for Referral * Radiology Services (Routine/Next Available) - Authorization Not Required Specialty Diagnoses / Procedures Referred By Contac t Referred To Contact Diagnoses Hip pain Procedures XR HIP LEFT 2-3 VIEWS, OPTIONAL PELVIS Maite Bright DNP Phone: tel: fax: [facility] Referral ID Status Reason Start Date Expiration Date Visits Requested Visits Authorized [id number] Authorization Not Required 2 1 1 * Radiology Services (Routine/Next Available) - Authorization Not Required Specialty Diagnoses / Procedures Referred By Contac t Referred To Contact Diagnoses Hip pain Procedures XR HIP RIGHT 2-3 VIEWS, OPTIONAL PELVIS Maite Bright DNP Phone: tel: fax: [facility] Referral ID Status Reason Start Date Expiration Date Visits Requested Visits Authorized [id number] Authorization Not Required 2 1 1 Reason for Visit * Reason Comments Hypertension Encounter Details Date Type Department Care Team (Latest Contact Info) Description 12/18/2021 11:30 EDT Office Visit [facility] [address] [phone] Maite Bright DNP [address] [place] [address] Essential hypertension (Primary Dx); Acquired hypothyroidism; Hip pain; Screening, lipid; Diabetes mellitus screening Social History Tobacco Use Types Packs/Day Years [...] slept in a penitentiary (including now)? No 12/18/2021 Interpersonal Safety Answer Date Record ed How often does anyone, inclu alexandra family, hit, punch or physically hurt you? Never 12/18/2021 How often does anyone, bisi morris family, [...] 11:12 EDT documented as of this encounter Last Filed Vital Signs Vital Sign Reading Time Taken Comments Blood Pressure 160/96 12/18/2021 1125 EDT Pulse 75 12/18/2021 1125 EDT Temperature - - Respiratory Rate - - Oxygen Saturation 99% 12/18/2021 1125 EDT Inhaled Oxygen Concentration - - Weight 100.5 kg (221 lb 9.6 oz) 12/18/2021 1125 EDT Height 163.8 cm (5' 4.49) 12/18/2021 1125 EDT Body Mass Index 37.46 12/18/2021 1125 EDT documented in this encounter Progress Notes * Maite Bright NP - 12/18/[address] [facility] NITIN Raissa Espino Subjective: Chief Complaint(s): Hypertension HPI Meli is here for follow-up of hypertension and hypothyroid. Medications: compliant with irbesartan 150 mg daily and levothyroxine 100 mcg daily. Side effects: None Home BP monitoring: Monitors regularly, typically at goal when pain is manageable. Weight change: 6 pound gain Last BMP: 06/14/2021 Last TSH: 06/14/2021 Denies: chest pain, shortness of breath, edema, dizziness, syncope. Denies: Heat intolerance, cold intolerance, unexplained weight loss or weight gain, changes in hairor skin. Left hand numbness and swelling x 3 weeks. Hand feels like ice. Has CRPS, but this feels different. Self treatment ibuprofen and cannabis edibles. Right hand dominant. She was doing a lot of artwork with fine wires and this may have triggered the flare. Also has bilateral hip pain. I have reviewed patient's tobacco history: reports [...] ??? irbesartan (AVAPRO) 150 mg tablet Take 1 Tablet by mouth daily. 90 Tablet 4 ??? Lactobac no.41/Bifidobact no.7 (PROBIOTIC-10 ORAL) Take [...] file prior to visit. Review of Systems Cardiovascular: Negative for chest pain. Musculoskeletal: Positive for arthralgias. Endo/Heme/Allergies: Negative for cold intolerance and heat intolerance. Objective: Examination: Vitals: BP (!) 160/96 (BP Cuff Location: Right arm, BP Patient Position: Sitting, BP Cuff Sizes: Adult, large) Pulse 75 Ht 163.8 cm (64.49) Wt 100.5 kg (221 lb 9.6 oz) SpO2 99% BMI 37.46 kg/m?? Body mass index is 37.46 kg/m??. Physical Exam Vitals reviewed. Constitutional: General: She is in acute distress (uncomfortable). Appearance: She is not ill-appearing or toxic-appearing. Eyes: Conjunctiva/sclera: Conjunctivae normal. Cardiovascular: Rate and Rhythm: Normal rate. Heart sounds: Normal heart sounds. Pulmonary: Effort: Pulmonary effort is normal. Breath sounds: Normal breath sounds. Musculoskeletal: General: Normal range of motion. Comments: Left hand with reduced printer apprentice strength. Fingers are slightly swollen and tender. No redness. Skin: General: Skin is warm and dry. Neurological: General: No focal deficit present. Mental Status: She is alert and oriented to person, place, and time. Psychiatric: Mood and Affect: Mood normal. Behavior: Behavior normal. Data reviewed with patient (past results): Reviewed and/or ordered active problem list, medication list, health maintenance Assessment & Plan: 1. Essential hypertension Her home blood pressure readings have been at goal. Her elevated reading today is likely related topain and recent use of ibuprofen. Continue eating a healthy diet, regular exercise and continue irbesartan 150 mg daily. Have ordered a fasting metabolic panel for you to have done prior to her next appointment. - BASIC METABOLIC PANEL (BMP); Future 2. Acquired hypothyroidism TSH ordered to be done prior to next appointment. Continue levothyroxine 100 mcg daily. - TSH; Future 3. Hip pain X-rays of your right and left hip ordered for further evaluation of your pain. - XR HIP RIGHT 2-3 VIEWS, OPTIONAL PELVIS; Future - XR HIP LEFT 2-3 VIEWS, OPTIONAL PELVIS; Future 4. Screening, lipid Fasting lipid panel ordered to be done prior to your next appointment. - LIPID PROFILE (INCLUDES CHOLESTEROL, TRIGLYCERIDES, HDL, LDL); Future 5. Diabetes mellitus screening - BASIC METABOLIC PANEL (BMP); Future Return in about 25 weeks (around 06/11/2022) for HTN, pap, review labs. Speech recognition software was used to complete this progress note. Typographical errors may be present. documented in this encounter Plan of Treatment Upcoming Encounters Date Type Department Care Team (Late st Contact Info) Description 07/07/2024 10:15 EDT Office Visit [facility] [address] [phone] Maite Bright DNP [address] [place] [phone] documented as of this encounter Results * XR HIP LEFT [...] hip and sacroiliac degenerative changes. Maite Bright DNP IMG DIAGNOSTIC IMAGING ORDERABLE [...] Mild bilateral hip and sacroiliac degenerative changes. Result [facility] Maite Bright DNP IMG DIAGNOSTIC IMAGING ORDERABLE S Final Result documented in this encounter Visit Diagnoses Diagnosis Essential hypertension- Primary Unspecified essential hypertension Acquired hypothyroidism Unspecified hypothyroidism Hip pain Pain in joint, pelvic region and thigh Screening, lipid Screening for lipoid disorders Diabetes mellitus screening Screening for diabetes mellitus Hip pain Pain in joint, pelvic region and thigh documented in this encounter Care Teams Swimming Coach Relationship Specialty Start Date End Date Maite Bright DNP [address] [place] [address] PCP - General 11/27/15 documented as of this encounter
--- OUTSIDE RECORDS SUMMARY | 2024-04-22 09:20 | XMS_ITS | Encounter Summary ---
Author Organization [facility] Address [address] [place] [address] Care Team Providers Care Ink Maker Name Role Phone Maite Bright DNP Primary Care Provider [phone] Encounter Details Date Type Department Care Team (Late st Contact Info) Description 12/19/2016 Historical Results Only [facility] - Main [address] [phone] Maite Bright DNP [address] [place] [phone] Social History Tobacco Use Types Packs/Day Years [...] Visit [facility] [address] [address] Maite Bright DNP [address] [place], [place] [phone] documented as of this encounter Procedures Procedure Name Priority Date/Time Associated Diagnosis Comments TSH Routine 12/19/2016 13:52 EDT documented in this encounter Results * (ABNORMAL) TSH (12/19/2016 13:52 EDT) THYROID STIM HORMONE - [facility] 10.60(H) 0.46 - 4.68 uIU/ml 12/19/2016 18:[address] [facility] 12/19/2016 13:5 2 EDT 12/19/2016 17:18 EDT Maite Bright DNP CHEMISTRY & BLOOD GAS ORDERABLES Final Result [facility] documented in this encounter Visit Diagnoses Not on filedocumented in this encounter Care Teams Ink Maker Relationship Specialty Start Date End Date Maite Bright DNP [address] [place] [phone] PCP - General 11/27/15 documented as of this encounter
--- OUTSIDE RECORDS SUMMARY | 2024-04-22 09:20 | XMS_ITS | Encounter Summary ---
Author Organization [facility] Address [address] [place] [address] Care Team Providers Care Kaiako Kohanga Reo Name Role Phone Maite Bright DNP Primary Care Provider [phone] Encounter Details Date Type Department Care Team (Late st Contact Info) Description 06/17/2016 Historical Results Only [facility] - Main [address] [phone] Maite Bright DNP [address] [place], [place] [phone] Social History Tobacco Use Types Packs/Day Years [...] Info) Description 07/07/2024 10:15 EDT Office Visit [facility] [address] [address] Maite Bright DNP [address] [place], [place] [phone] documented as of this encounter Procedures Procedure Name Priority Date/Time Associated Diagnosis Comments TSH Routine 06/17/2016 9:10 EDT documented in this encounter Results * TSH (06/17/2016 9:10 EDT) THYROID STIM HORMONE [place] [facility] 5.30 0.35 - 5.50 uIU/mL 06/17/2016 10:19 EDT [facility] 06/17/2016 9:10 EDT 06/17/2016 9:10 EDT Narrative [facility] - 06/17/2016 10:19 EDT Does PT Have a Latex Allergy? NO Maite Bright DNP CHEMISTRY & BLOOD GAS ORDERABLES Final Result [facility] documented in this encounter Visit Diagnoses Not on filedocumented in this encounter Care Teams Kaiako Kohanga Reo Relationship Specialty Start Date End Date Maite Bright DNP [address] [place] [phone] PCP - General 11/27/15 documented as of this encounter
--- OUTSIDE RECORDS SUMMARY | 2024-04-22 09:20 | XMS_ITS | Encounter Summary ---
Author Organization [facility] Address [address] [place] [address] Care Team Providers Care Frame Stylist Name Role Phone Maite Bright DNP Primary Care Provider [phone] Encounter Details Date Type Department Care Team (Late st Contact Info) Description 06/17/2016 Historical Results Only [facility] - Main [address] [phone] Maite Bright DNP [address] [place], [place] [phone] Social History Tobacco Use Types Packs/Day Years [...] Info) Description 07/07/2024 10:15 EDT Office Visit [facility] [address] [address] Maite Bright DNP [address] [place], [place] [phone] documented as of this encounter Procedures Procedure Name Priority Date/Time Associated Diagnosis Comments COMPREHENSIVE METABOLIC PANEL (CMP) Routine 06/17/2016 9:10 EDT documented in this encounter Results * COMPREHENSIVE METABOLIC PANEL (CMP) (06/17/2016 9:10 EDT) Albumin % 3.7 3.4 - 5.0 g/dL 06/17/2016 10:11 [facility] ALKALINE PHOSPHATASE - [facility] 108 41 - 126 U/L 06/17/2016 10:11 [facility] BILIRUBIN TOTAL 0.9 0.0 - 1.0 mg/dL 06/17/2016 10:11 [facility] BUN - [facility] 12 7 - 18 mg/dL 06/17/2016 10:11 [facility] CALCIUM - [facility] 8.9 8.5 - 10.1 mg/dL 06/17/2016 10:11 [facility] Chloride 105 98 - 107 mEq/L 06/17/2016 10:11 [facility] CO2 Total 24 21 - 32 mEq/L 06/17/2016 10:11 [facility] CREATININE 0.78 0.5 - 1.3 mg/dL 06/17/2016 10:11 [facility] eGFR >60 06/17/2016 10:11 [facility] Comment: Chronic renal impairment is defined as GFR <60 Multiply result by 1.210 for patients. eGFR calculated using the IDMS-traceable MDRD Study Equation. ??(effective 01/10/2014) Anion Gap 11 5 - 15 06/17/2016 10:11 [facility] GLUCOSE - [facility] 93 70 - 100 mg/dL 06/17/2016 10:11 [facility] Potassium 4.1 3.5 - 5.0 mEq/L 06/17/2016 10:11 [facility] Sodium 140 135 - 145 mEq/L 06/17/2016 10:11 [facility] TOTAL PROTEIN - [facility] 7.0 6.4 - 8.2 gm/dl 06/17/2016 10:11 [facility] SGOT/AST - [facility] 14 10 - 37 U/L 06/17/2016 10:11 [facility] SGPT/ALT - [facility] 26 12 - 78 U/L 06/17/2016 10:11 EDT [facility] 06/17/2016 9:10 EDT 06/17/2016 9:10 EDT Narrative [facility] - 06/17/2016 10:19 EDT Does PT Have a Latex Allergy? NO us Maite Bright DNP CHEMISTRY & BLOOD GAS ORDERABLES Final Result [facility] documented in this encounter Visit Diagnoses Not on filedocumented in this encounter Care Teams Frame Stylist Relationship Specialty Start Date End Date Maite Bright DNP [address] [place] [address] PCP - General 11/27/15 documented as of this encounter
--- OUTSIDE RECORDS SUMMARY | 2024-04-22 09:20 | XMS_ITS | Encounter Summary ---
Author Organization [facility] Address [address] [place] [address] Care Team Providers Care Data Modeling Architect Name Role Phone Maite Bright DNP Primary Care Provider [phone] Encounter Details Date Type Department Care Team (Late st Contact Info) Description 06/17/2016 Historical Results Only [facility] - Main [address] [phone] Maite rBight DNP [address] [place], [place] [phone] Social History Tobacco Use Types Packs/Day Years [...] Description 07/07/2024 10:15 EDT Office Visit [facility] [address] [address] Maite Bright DNP [address] [place], [place] [phone] documented as of this encounter Procedures Procedure Name Priority Date/Time Associated Diagnosis Comments T4 FREE Routine 06/17/2016 9:10 EDT documented in this encounter Results * T4 FREE (06/17/2016 9:10 EDT) FREE T4 [place] [facility] 1.16 0.89 - 1.76 ng/dL 06/17/2016 10:19 EDT [facility] 06/17/2016 9:10 EDT 06/17/2016 9:10 EDT Narrative [facility] - 06/17/2016 10:19 EDT Does PT Have a Latex Allergy? NO Maite Bright DNP CHEMISTRY & BLOOD GAS ORDERABLES Final Result [facility] documented in this encounter Visit Diagnoses Not on filedocumented in this encounter Care Teams Data Modeling Architect Relationship Specialty Start Date End Date Maite Bright DNP [address] [place] [address] PCP - General 11/27/15 documented as of this encounter
--- OUTSIDE RECORDS SUMMARY | 2024-04-22 09:20 | XMS_ITS | Encounter Summary ---
Author Organization [facility] Address [address] [place] [address] Care Team Providers Care J2Ee Consultant Name Role Phone Maite Bright DNP Primary Care Provider [phone] Encounter Details Date Type Department Care Team (Late st Contact Info) Description 09/16/2016 Historical Results Only [facility] - Main [address] [phone] Maite Bright DNP [address] [place], [place] [phone] Social History Tobacco Use Types Packs/Day Years [...] Info) Description 07/07/2024 10:15 EDT Office Visit [facility] [address] [phone] Maite Bright DNP [address] [place], [place] [phone] documented as of this encounter Procedures Procedure Name Priority Date/Time Associated Diagnosis Comments GC/CHLAMYDIA PCR - [facility] [place] Routine 09/16/2016 13:46 EDT PAP TEST Routine 09/16/2016 10:04 EDT HPV DNA DETECTION WITH GENOTYPING, PCR Routine 09/16/2016 10:04 EDT documented in this encounter Results * GC/CHLAMYDIA PCR - [facility] (09/16/2016 13:46 EDT) CHLAMYDIA PCR - CV NOT DETECTED 09/16/2016 21:28 EDT [facility] GONORRHEA PCR - CV NOT DETECTED 09/16/2016 21:28 EDT [facility] SOURCE CERVIX 09/16/2016 21:28 EDT [facility] 09/16/2016 13:4 6 EDT 09/16/2016 16:57 EDT Maite Brigth DNP CHEMISTRY & BLOOD GAS ORDERABLES Final Result Performing Organization Address City/[facility]/ZIP Co de Phone Number [facility] * HUMAN PAPILLOMAVIRUS (HPV) DETECTION-HIGH RISK TYPES (09/16/2016 10:04 EDT) HPV other High Risk types, PCR NEG 09/20/2016 16:05 EDT [facility] Comment: Negative for HPV types 16, 18, 31, 33, 35, 39, 45, 51, 52, 56, 58, 59, 66, 68. Method: Cervista HPV HR (High Risk) DNA test. 09/16/2016 10:0 4 EDT 09/17/2016 10:04 EDT Maite Bright DNP MICROBIOLOGY - GENERAL ORDERABLE S Final Result [facility] * PAP TEST (09/16/2016 10:04 EDT) 09/16/2016 10:0 4 EDT 09/17/2016 10:04 EDT Narrative [facility] - 09/23/2016 8:01 EDT ----- ------- Name: KPMELI ?: 69 ?Age/Sex: 52/F ?Unit#: [id number] ? Loc: [facility] ? Status: REG POV ?? Reg Date: 09/16/16 ? Pt.Phone Number: ? ----- ------- Specimen: [id number] ?STATUS: SOUT ?Spec Date:09/16/16 ? Physician Copies: ?Maite Bright DNP, F Tissues: ? VAG/CERV PAP ? CPT: 19021 ?? Units: ??1 ----- ------- ? CYTOLOGY DIAGNOSIS SPECIMEN ADEQUACY: ?Satisfactory for evaluation. Transformation zone component ABSENT. GENERAL CATEGORIZATION: ?Negative for Intraepithelial Lesion or Malignancy DESCRIPTIVE DIAGNOSIS: ? Negative for Intraepithelial Lesion or Malignancy. ----- ------- ?HPV DNA RESULTS ?? 09/16/16 1004 HPV DNA RESULT ??NEG ? Negative for HPV types 16, 18, 31, 33, 35, 39, 45, 51, 52, ? 56, 58, 59, 66, 68. ? Method: Subhashista HPV HR (High Risk) DNA test. ----- ------- ORDER QUERIES: LMP: 09/02/16- NONE ? N Post ? N ??PREVIOUS ATYPICAL: N BCP/HRT? N Rad Rx? N IUD? N ??PAP PLUS HPV? Y ??REFLEX TO HR-HPV IF ASCUS Y REFLEX TO HPV 16/18 IF HPV POS/PAP NEG Y HPV REGARDLESS? Y ??RFLX HPV IF LSIL ?? Signed LouiemurrayjonyBennett CT(ASCP) 09/23/16 By the signature above, the attending physician certifies that he/she has personally conducted a gross and/or microscopic examination of the described specimens and rendered or confirmed the above diagnosis. Test Performed by [facility], [address] [place] [id number] Rn Community: Ninoska Herrera MD PHD ----- ------- us Maite Bright DNP PATHOLOGY ORDERABLES Final Resul t [facility] documented in this encounter Visit Diagnoses Not on filedocumented in this encounter Care Teams J2Ee Consultant Relationship Specialty Start Date End Date Maite Bright DNP [address] [place], [place] [phone] PCP - General 11/27/15 documented as of this encounter
--- OUTSIDE RECORDS SUMMARY | 2024-04-22 09:20 | XMS_ITS | Encounter Summary ---
Author Organization [facility] Address [address] [place] [address] Care Team Providers Care Table Tender Name Role Phone BrightMaite KORINA Primary Care Provider [phone] Encounter Details Date Type Department Care Team (Latest Contact Info) Description 07/24/2016 11:08 EDT - 07/24/2016 23:59 EDT Hospital Encounter [facility] [address] [place] [address] Unknown, Provider, MD Discharge Disposition: Home or [...] mg by mouth every 6 hours. 02/13/2019 losartan (COZAAR) 50 mg tablet Take 50 mg by mouth daily. 02/13/2019 MEDICAL MARIJUANA 2 times daily as needed. As directed 12/25/2015 11/12/2019 melatonin 3 mg tablet Take 3 mg by mouth at bedtime. 02/13/2019 turmeric root extract 500 mg capsule Take by mouth. 02/13/2019 documented as of this encounter Discharge Disposition Disposition Code Departure Means Destination Home or Self Skilled Nursing documented in this encounter Plan of Treatment Upcoming Encounters Date Type Department Care Team (Late st Contact Info) Description 07/07/2024 10:15 EDT Office Visit [facility] [address] [place] [address] Maite Bright DNP [address] [place] [address] documented as of this encounter Visit Diagnoses Not on filedocumented in this encounter Care Teams Table Tender Relationship Specialty Start Date End Date Maite Bright DNP [address] [place] [address] PCP - General 11/27/15 documented as of this encounter
--- OUTSIDE RECORDS SUMMARY | 2024-04-22 09:20 | XMS_ITS | Encounter Summary ---
Author Organization [facility] Address [address] [place] [address] Care Team Providers Care Community Service Organization Director Name Role Phone Maite Bright DNP Primary Care Provider [phone] Encounter Details Date Type Department Care Team ([facility] Contact Info) Description 07/24/2016 Historical Results Only [facility] Radiology Results [address] [place] [address] Maite Bright DNP [address] [place], [place] [phone] Social History Tobacco Use Types Packs/Day Years [...] Info) Description 07/07/2024 10:15 EDT Office Visit [facility] [address] [place], [place] [phone] Maite Bright DNP [address] [place], [place] [address] documented as of this encounter Visit Diagnoses Not on filedocumented in this encounter Care Teams Community Service Organization Director Relationship Specialty Start Date End Date Maite Bright DNP [address] [place] [address] PCP - General 11/27/15 documented as of this encounter
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
--- OUTSIDE RECORDS SUMMARY | 2024-04-22 09:20 | XMS_ITS | Encounter Summary ---
Author Organization [facility] Address [address] [place] [address] Care Team Providers Care Limnology Teacher Name Role Phone Maite Bright DNP Primary Care Provider Encounter Details Date Type Department Care Team (Late Contact Info) Description 07/25/2016 Historical Results Only [facility] Radiology Results [address] [place] [address] Maite Bright DNP [address] [place], [place] [phone] Social History Tobacco Use Types Packs/Day Years [...] Info) Description 07/07/2024 10:15 EDT Office Visit [facility] Integrative Family Medicine [facility] [address] [place] [address] Maite Bright DNP [address] [place], [place] [phone] documented as of this encounter Procedures Procedure Name Priority Date/Time Associated Diagnosis Comments MA BREAST SCREENING ALANNA BILATERAL 07/25/2016 8:38 EDT documented in this encounter Results * MA BREAST SCREENING ALANNA BILATERAL (07/25/2016 8:38 EDT) Anatomical Region Laterality Modality Breast Bilateral Other 07/25/2016 8:38 EDT Narrative 07/25/2016 8:38 EDT ? EXAM: MAMMOGRAM/MAMMO BILATERAL SCREEN W ??EX. D/ (1300) ? CLINICAL INFORMATION: ? SCREEN Z12.39, COMPARE TO MAMMO 2012 ? [facility] ? COMPARISON: ??2008 ? TECHNIQUE: ??Full field digital whole breast 2D (C-view) and 3D CC and ? MLO views of both breasts were obtained. CAD technology was utilized. ? FINDINGS: ??The fibroglandular patterns of the breasts are normal. ? There has been no change when compared to previous mammograms and ? there is no mammographic evidence of cancer. The breast tissue is of ? fatty density. ? FINAL ASSESSMENT: ??BILATERAL BREAST - Category 1 - Negative. Routine ? mammographic follow-up is recommended. ? These results will be communicated to your patient via a lay letter ? from Radiology. ??If any additional imaging is needed we will contact ? your patient directly. ? REPORT SIGNED IN OTHER VENDOR SYSTEM 07/26/2016 ?Reported By: Karlos Nelson MD ? CC: ? Transcribed Date/Time: 07/25/2016 (0838) ? Trailer Steerer: ? Printed Date/Time: 08/24/2018 (1250) ? PAGE 1 ? Signed Report ? Procedure Note Karlos Nelson MD - 01/13/2019 EXAM: MAMMOGRAM/MAMMO BILATERAL SCREEN W EX. D/ (1300) CLINICAL INFORMATION: SCREEN Z12.39, COMPARE TO MAMMO 2012 [facility] COMPARISON: 2008 TECHNIQUE: Full field digital whole breast 2D (C-view) and 3D CCand MLO views of both breasts were obtained. CAD technology wasutilized. FINDINGS: The fibroglandular patterns of the breasts are normal. There has been no change when compared to previous mammograms and there is no mammographic evidence of cancer. The breast tissue isof fatty density. FINAL ASSESSMENT: BILATERAL BREAST - Category 1 - Negative.Routine mammographic follow-up is recommended. These results will be communicated to your patient via a lay letter from Radiology. If any additional imaging is needed we willcontact your patient directly. REPORT SIGNED IN OTHER VENDOR SYSTEM 07/26/2016 Reported By: Karlos Nelson MD CC: Transcribed Date/Time: 07/25/2016 (0838) Trailer Steerer: Printed Date/Time: 08/24/2018 (1130) PAGE 1 Signed Report Maite Bright DNP IM MAMMOGRAPHY ORDERABLES Final Result documented in this encounter Visit Diagnoses Not on filedocumented in this encounter Care Teams Limnology Teacher Relationship Specialty Start Date End Date Maite Bright DNP [address] [place] [phone] PCP - General 11/27/15 documented as of this encounter
--- OUTSIDE RECORDS SUMMARY | 2024-04-22 09:20 | XMS_ITS | Encounter Summary ---
Author Organization [facility] Address [address] [place] [address] Care Team Providers Care Process Controls Technician Name Role Phone Maite Bright DNP Primary Care Provider [phone] Encounter Details Date Type Department Care Team (Late st Contact Info) Description 06/17/2016 Historical Results Only [facility] Lab - Main [address] [phone] Maite Bright DNP [address] [place], [place] [phone] Social History Tobacco Use Types Packs/Day Years [...] Info) Description 07/07/2024 10:15 EDT Office Visit [facility] Integrative Family Medicine [address] [address] Maite Bright DNP [address] [place], [place] [phone] documented as of this encounter Procedures Procedure Name Priority Date/Time Associated Diagnosis Comments LIPID PROFILE (INCLUDES CHOLESTEROL, TRIGLYCERIDES, HDL, LDL) Routine 06/17/2016 9:10 EDT documented in this encounter Results * (ABNORMAL) LIPID PROFILE (INCLUDES CHOLESTEROL, TRIGLYCERIDES, HDL, LDL) (06/17/2016 9:10 EDT) Triglyceride 166(H) 35 - 150 mg/dL 06/17/2016 10:11 EDT [facility] Cholesterol 247(H) 120 - 200 mg/dL 06/17/2016 10:11 EDT [facility] Chol/HDL Ratio 3.8 0 - 4.5 06/17/2016 10:11 EDT [facility] Comment: DESIRABLE RATIO IS LESS THAN 4.1 PATIENTS ARE CONSIDERED AT RISK: WOMEN RATIO >5 MEN RATIO >6 FASTING? - [facility] Yes 7 9:10 EDT [facility] HDL 64(H) 40 - 60 mg/dL 06/17/2016 10:11 EDT [facility] LDL CHOLESTEROL - [facility] 150(H) 60 - 100 mg/dL 06/17/2016 10:11 EDT [facility] Non HDL Cholesterol 183 mg/dl 06/17/2016 10:11 EDT [facility] Comment: Desirable: ?Less than 130 Borderline High: ??130-159 High: ? 160-189 Very High: ?Greater than or equal to 190 06/17/2016 9:10 EDT 06/17/2016 9:10 EDT Narrative [facility] - 06/17/2016 10:19 EDT Does PT Have a Latex Allergy? NO Maite Bright DNP CHEMISTRY & BLOOD GAS ORDERABLES Final Result [facility] documented in this encounter Visit Diagnoses Not on filedocumented in this encounter Care Teams Process Controls Technician Relationship Specialty Start Date End Date Maite Bright DNP [address] [place], [place] [phone] PCP - General 11/27/15 documented as of this encounter
--- OUTSIDE RECORDS SUMMARY | 2024-04-22 09:20 | XMS_ITS | Encounter Summary ---
Author Organization [facility] Address [address] [place] [address] Care Team Providers Care Roll Finisher Name Role Phone Maite Bright DNP Primary Care Provider [phone] Encounter Details Date Type Department Care Team (Late st Contact Info) Description 12/19/2016 Historical Results Only [facility] Lab - Main [address] [phone] Maite Bright DNP [address] [place] [phone] Social History Tobacco Use Types Packs/Day Years [...] Info) Description 07/07/2024 10:15 EDT Office Visit [facility] Integrative Family Medicine [address] [address] Maite Bright DNP [address] [place], [place] [phone] documented as of this encounter Procedures Procedure Name Priority Date/Time Associated Diagnosis Comments T4 FREE Routine 12/19/2016 13:52 EDT documented in this encounter Results * T4 FREE (12/19/2016 13:52 EDT) FREE T4 - [facility] 0.88 0.78 - 2.19 ng/dl 12/19/2016 18:56 EDT [facility] 12/19/2016 13:5 2 EDT 12/19/2016 17:18 EDT Maite Bright DNP CHEMISTRY & BLOOD GAS ORDERABLES Final Result [facility] documented in this encounter Visit Diagnoses Not on filedocumented in this encounter Care Teams Roll Finisher Relationship Specialty Start Date End Date Maite Bright DNP [address] [place] [address] PCP - General 11/27/15 documented as of this encounter
--- OUTSIDE RECORDS SUMMARY | 2024-04-22 09:21 | XMS_ITS | Encounter Summary ---
Author Organization [facility] [place] [address] Care Team Providers Care Casting Technician Name Role Phone Unavailable Primary Care Provider Unavailabl e Encounter Details Date Type Department Care Team (Late st Contact Info) Description 04/22/2024 9:20 AM EST Telehealth [place] [address] Telehealth, Neurology None Arrived Social History Tobacco Use Types Packs/Day Years Used Date Smoking Tobacco: Never Assessed Sex and Gender Information Value Date Recorded Sex Assigned at Not on file Gender Identity Not on file Sexual Orientation Not on file documented as of this encounter Plan of Treatment Not on file documented as of this encounter Visit Diagnoses Not on filedocumented in this encounter
--- OUTSIDE RECORDS SUMMARY | 2024-04-22 09:21 | XMS_ITS | Encounter Summary ---
Author Organization Counts [facility] Address [facility] [address] Care Team Providers Care Photograph Enlarger Name Role Phone Unavailable Primary Care Provider Unavailabl e Encounter Details Date Type Department Care Team (Late st Contact Info) Description 03/24/2024 Interpretation Only [facility] in [address] [phone] Marycruz Magallanes MD [address] [place], [place] [phone] Social History Tobacco Use Types Packs/Day Years Used Date Smoking Tobacco: Never Assessed Sex and Gender Information Value Date Recorded Sex Assigned at Not on file Gender Identity Not on file Sexual Orientation Not on file documented as of this encounter Plan of Treatment Not on file documented as of this encounter Procedures Procedure Name Priority Date/Time Associated Diagnosis Comments XR PELVIS AND HIP 3-4 VIEWS BILATERAL Routine 03/24/2024 1:56 PM EST documented in this encounter Results * XR PELVIS AND HIP 3-4 VIEWS BILATERAL (03/24/2024 1:56 PM EST) PT CLASS O RAD ADMITDTTM [id number] RAD PT RAD INFO [id number]^PICHIO PANDA^MARYCRUZ^R RAD EXAM DESC [id number]^XR HIPS BILAT 3V OR 4V^RIS RAD WORKSTATION ID [id number] RAD Anatomical Region Laterality Modality Other Impressions 03/24/2024 10:40 PM EST Mild osteoarthropathy of both hips Thank you for letting us participate in the care of this patient. ??If you are a health care provider and have any questions regarding this report, please contact the number below. ??For patients who have questions please contact the health career development coordinator that requested your imaging first. ? Narrative 03/24/2024 10:40 PM EST EXAMINATION: XR HIPS BILAT 3V OR 4V CLINICAL HISTORY: Entered by ordering service: REASON: PAIN IN RIGHT HIP ADD'L INFO: WB AP PELVIS AND B/L FROG LATERAL TECHNIQUE: AP pelvis, 1 view Frog lateral bilateral hip, 1 views each side COMPARISON: none FINDINGS: Bones No acute fracture or periostitis Hip joints Bilateral osteophytes, subchondral degenerative cysts and subchondral sclerosis. 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 SI joints: Small marginal osteophytes. No ankylosis or erosions. Soft Tissue No soft tissue air or foreign body detected. Procedure Note Yoon Tong MD - 03/24/2024 EXAMINATION: XR HIPS BILAT 3V OR 4V CLINICAL HISTORY: Entered by ordering service: REASON: PAIN IN RIGHT HIP ADD'L INFO: WB AP PELVIS AND B/L FROG LATERAL TECHNIQUE: AP pelvis, 1 view Frog lateral bilateral hip, 1 views each side COMPARISON: none FINDINGS: Bones No acute fracture or periostitis Hip joints Bilateral osteophytes, subchondral degenerative cysts and subchondralsclerosis. 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 SI joints: Small marginal osteophytes. No ankylosis or erosions. Soft Tissue No soft tissue air or foreign body detected. IMPRESSION Mild osteoarthropathy of both hips Thank you for letting us participate in the care of this patient. If youare a health care provider and have any questions regarding this report,please contact the number below. For patients who have questions please contactthe health career development coordinator that requested your imaging first. Marycruz Magallanes MD PACS IMAGES documented in this encounter Visit Diagnoses Not on filedocumented in this encounter
--- OUTSIDE RECORDS SUMMARY | 2024-04-22 09:21 | XMS_ITS | Clinical Summary ---
Author Organization [facility] Address [facility] [place] [address] Care Team Providers Care Video Tape Duplicator Name Role Phone Unavailable Primary Care Provider Unavailabl e Encounters Date Type Department Care Team Description 04/22/2024 9:20 AM EST Telehealth [place] [phone] Telehealth, Neurology Arrived 03/24/2024 Interpretation Only [facility] in [address] [phone] Marycruz Magallanes MD from Last 3 Months Social History Tobacco Use Types Packs/Day Years Used Date Smoking Tobacco: Never Assessed Sex and Gender Information Value Date Recorded Sex Assigned at Not on file Gender Identity Not on file Sexual Orientation Not on file Plan of Treatment Health Maintenance Due Date Last Done Comments CT Colonography 1967 Colonoscopy 1967 Colorectal Cancer Screening 1967 FIT DNA 1967 FIT 1967 Sigmoidoscopy (10 year) with FIT yearly 1967 Sigmoidoscopy 1967 HIV screen 11/18/1985 Hepatitis C Screening 11/18/1985 Hepatitis B vaccine (0-59 yrs) (1) 11/18/1986 Tetanus/Diphtheria/Pertussis Vaccines (1 - Tdap) 11/18 HPV test 11/18/1997 PAP Smear 11/18/1997 Breast Cancer Share Decision Needed 2007 Breast Cancer screening 2007 Pneumoccocal Vaccine: 50+ (1 of 1 - PCV) 11/18/2017 Zoster vaccine (1 of 2) 11/18/2017 Advance Directive 11/18/2022 Covid-19 Vaccine (2 - season) 11/09/202306/2022 Influenza (Flu) vaccine (1 o f 1 - Influenza standard series) 11/09/2023 Procedures Procedure Name Priority Date/Time Associated Diagnosis Comments XR PELVIS AND HIP 3-4 VIEWS BILATERAL Routine 03/24/2024 1:56 PM EST from Last 3 Months Results * XR PELVIS AND HIP 3-4 VIEWS BILATERAL (03/24/2024 1:56 PM EST) PT CLASS O RAD ADMITDTTM [id number] RAD PT RAD MD INFO [id number]^PICHIO PANDA^MARYCRUZ^R RAD EXAM DESC [id number]^XR HIPS BILAT 3V OR 4V^RIS RAD WORKSTATION ID [id number] RAD Anatomical Region Laterality Modality Other Impressions 03/24/2024 10:40 PM EST Mild osteoarthropathy of both hips Thank you for letting us participate in the care of this patient. ??If you are a health care provider and have any questions regarding this report, please contact the number below. ??For patients who have questions please contact the health transitional care nurse that requested your imaging first. ? Narrative [...] patients who have questions please contactthe health transitional care nurse that requested your imaging first. Electronically signed by: Yoon Tong MD, [facility]([phone]), at 03/24/2024 10:40 PM Marycruz Magallanes MD PACS IMAGES from Last 3 Months
[2024-04-22 10:38] LABS: Troponin I 7 ng/L (<or=51)
--- NOTE | 2024-04-22 11:45 | DI.MRI_ITS ---
Exam(s) MR BRAIN WO/W EXAM: MR BRAIN WO/W CLINICAL HISTORY: ataxia, vertigo and vertical nystagmus TECHNIQUE: Multiplanar multisequence MRI of the brain was performed. Both noninfused and contrast i nfused sequences were performed. IV Contrast injected was 19 cc Dotarem. COMPARISON: CT CT BRAIN NECK CTA from 04/22/2024 FINDINGS: CEREBRAL PARENCHYMA: No evidence of intracranial hemorrhage, mass effect nor shift of midline structu re. No extraaxial fluid collections. Ventricles are not enlarged nor shifted. There is no significant focal signal abnormality in the cerebellar hemispheres nor within the beena, m idbrain, and thalami. There is an area mild signal abnormality in the left para-supra ventricular white matter measuring 1. 2 by 1.0 by 0.6 cm, not associated with hemorrhage, enhancement, edema, nor restricted diffusion. Fe w smaller nonspecific foci of white matter signal abnormality measuring 2-3 mm size are also noted DWI: No areas of restricted diffusion to suggest acute ischemic event. SWI: No microhemorrhages evident. There are no ring enhancing lesions in the brain. There is no abnormal meningeal enhancement. PITUITARY GLAND: No mass nor parasellar abnormality. No obvious abnormality in the cavernous sinuses. FLOW VOIDS: The expected flow void are noted. No evidence of obvious aneurysm nor obvious vascular ma lformation. PARANASAL SINUSES: The visualized paranasal sinuses appear unremarkable. Dental artifact on the right side noted. ORBITS: Abnormal FLAIR signal in right orbit retro conal compartment is most probably related to the ipsilateral dental artifact. IMPRESSION: 1. There is a 12 x 10 x 6 mm focus of signal abnormality in the immediate left para-supra ventricular white matter, not associated with hemorrhage, surrounding edema, enhancement, nor restricted diffusi on. A few other smaller nonspecific (average size 3 mm) foci of bilateral white matter signal abnorm alities are also noted. 2. No abnormal enhancing intracranial findings. There are no ring enhancing lesions in the brain and there is no abnormal meningeal enhancement. No evidence of vascular malformation. Discussed with ER physician 04/22/2024 at 1:25 p.m. DATA REPOSITORY:
[2024-04-22] MEDS: Aspirin 325 MG TAB PO (12:06)
[2024-04-22] MEDS: Gadoterate meglumine 20 ML SYRINGE 19 ML IVP (12:52)
--- NOTE | 2024-04-22 14:59 | W.PM.HP.N ---
Date of service: 04/22/24 Time of Service: 14:59 Assessment and Plan Assessment and plan (1) CVA (cerebral vascular accident): Status: Chronic Assessment and plan: pt awaiting echo. Doubt CVA but will continue work up. Teleneuro did not recommend any plavix (2) CRPS (complex regional pain syndrome type I): Status: Acute Assessment and plan: cw current plan (3) Vestibular labyrinthitis: Status: Acute Assessment and plan: There is recommendation from neuro to treat with prednisone 1mg/kg for seven days History of Present Illness History of Present Illness Chief Complaint: dizziness Narrative: This is a 58-year-old female who presented after a over 24-hour period of dizziness as well as some diplopia. On evaluation there was concern about a CVA versus a TIA. Patient did get a CT scan as well as an MRI of her brain and also did an EKG and labs in the ED. Patient's head CT was essentially benign but the MRI did show a 12 x 10 x 6 mm focus of signal abnormality in the immediate left apparent supraventricular white matter. A teleneurologist consult was placed and the neurologist at least through my discussion with the ED was not sure this was a CVA. A diagnosis of vestibular neuritis was the most likely diagnosis per teleneurology. Patient's lab work was otherwise benign. Patient also complained of nausea with vomiting which is since resolved patient also complains of some balance issues as well. Review of Systems All systems reviewed & are unremarkable except as noted in HPI and below PFSH All Active Problems (Updated 04/22/24 @ 15:05 by Tio Stallworth MD) Vestibular labyrinthitis (Acute) CRPS (complex regional pain syndrome type I) (Acute) CVA (cerebral vascular accident) (Chronic) Social History Smoking/Tobacco Use Status: Never Smoking risk assessment performed?: Yes Alcohol Intake: never Drug use: Never Substance use type: marijuana Details: medical MJ Housing: house Do you feel safe in your relationship?: Yes Meds Allergies and Home Medications Allergies Allergy/AdvReac Type Severity Reaction Status Date / Time duloxetine (From Cymbalta) AdvReac Intermediate Other (See Verified 04/22/24 07:41 Comment) pregabalin (From Lyrica) AdvReac Intermediate Other (See Verified 04/22/24 07:41 Comment) sulfabenzamide AdvReac Intermediate Unknown Unverified 04/22/24 07:41 Home Medications ?Medication ?Instructions ?Recorded ?Confirmed ?Type Medical Aundrea 1 ea PO DAILY PRN 01/19/17 04/22/24 History irbesartan 150 mg tablet (Avapro) 150 mg PO DAILY 01/19/17 04/22/24 History levothyroxine 100 mcg tablet 100 mcg PO DAILY 01/19/17 04/22/24 History ibuprofen 600 mg tablet 600 mg PO QID PRN 04/22/24 04/22/24 History Exam Narrative Exam Narrative: Head eyes ears nose and throat: Normocephalic atraumatic mucous membranes moist oropharynx is clear extraocular motions are intact. There was mention of possible vertical nystagmus but I do not appreciate this. Smile was intact and patient was able to raise both her eyebrows Neck: No lymphadenopathy no JVD no thyromegaly Cardiovascular: Regular rate and rhythm no murmurs gallops Lungs: Clear to auscultation bilaterally with good air exchange Abdomen: Soft nontender nondistended bowel sounds active Neurologic: Cranial nerves II through XII intact as tested reflexes in upper lower extremity normal as tested Psych: Alert and orient x 3 General: 58-year-old female appears her stated age no apparent distress Results Labs 04/22/24 07:53 04/22/24 07:53 Labs: Laboratory Results - last 24 hr 04/22/24 04/22/24 04/22/24 07:53 09:56 10:43 WBC 8.86 RBC 5.13 Hgb 15.3 Hct 45.1 MCV 88 MCH 29.8 MCHC 33.9 RDW 11.9 Plt Count 255 MPV 10.5 Immature Gran % 0.3 Neutrophils % 64.6 Lymphocytes % 25.4 Monocytes % 7.7 Eosinophils % 1.4 Basophils % 0.6 Nucleated RBC % 0.0 Absolute Neutrophils 5.73 Absolute Lymphocytes 2.25 Absolute Monocytes 0.68 Absolute Eosinophils 0.12 Absolute Basophils 0.05 PT 10.0 INR 1.0 Sodium 144 Potassium 3.5 Chloride 108 H Carbon Dioxide 24.1 Anion Gap 11.9 H BUN 12 Creatinine 0.9 Est GFR (CKD-EPI 2020) 75.03 Glucose 101 Calcium 10.0 Magnesium 2.1 Total Bilirubin 1.00 AST 25 ALT 30 Alkaline Phosphatase 120 H Troponin I 7 7 Cancelled Total Protein 8.1 Albumin 4.0 Last Vital Signs Temp 36.6 C 04/22/24 07:35 Pulse 71 04/22/24 14:10 Resp 19 04/22/24 14:10 BP 194/105 H 04/22/24 12:01 Pulse Ox 96 04/22/24 14:10 Time Spent Time spent with Patient: 40-54 minutes Time was spent: preparing to see the patient(eg.review tests), obtaining and/or reviewing separately otained hiistory, ordering medications,tests, procedures, referring, communicating with other health rn long term care, indepentently interpreting results, counseling the patient and care coordination
--- NOTE | 2024-04-22 16:11 | W.PC.ACHO ---
Registration Status: Primary Language: Preferred Language: ED Information & Data Chief Complaint DrugWithdr/MAT 04/22/24 07:58 Chief Complaint Dizzy/Sync 04/22/24 07:49 Triage Note started feeling poorly 04/22/24 07:35 yesterday morning ~ 6am. woke up feeling fine but developed lightheadedness, dizziness, and vomiting. vision is off. states it looks like a TV screen scrolling down. denies fever , CP, SOB. hands are numb. Most Recent Vital Signs Temperature 36.6 C 04/22/24 07:35 Temperature Source Temporal Artery Scan 04/22/24 07:35 Pulse 71 04/22/24 14:10 Pulse 71 04/22/24 14:10 Respiratory Rate 19 04/22/24 14:10 Respiratory Effort Normal, Non-Labored 04/22/24 08:00 Respiratory Depth Normal 04/22/24 08:00 Respiratory Pattern Normal 04/22/24 08:00 Blood Pressure 194/105 H 04/22/24 12:01 Blood Pressure Mean 136 04/22/24 12:01 Pulse Oximetry 96 04/22/24 14:10 Oxygen Delivery Method Room Air 04/22/24 07:35 Oxygen Flow Rate 0 04/22/24 07:35 Pain Level 0 04/22/24 07:35 Allergies duloxetine (From Cymbalta) Adverse Reaction (Intermediate, Verified 04/22/24 07:41) Other (See Comment) pass out pregabalin (From Lyrica) Adverse Reaction (Intermediate, Verified 04/22/24 07:41) Other (See Comment) pass out sulfabenzamide Adverse Reaction (Intermediate, Unverified 04/22/24 07:41) Unknown Precautions Isolation Standard precaution 04/22/24 07:58 Active Medications Generic Name Dose Route Start Last Admin Trade Name Freq PRN Reason Stop Dose Admin Gadoterate Meglumine 19 ml 04/22/24 13:00 04/22/24 12:52 Gadoterate Meglumine 20 Ml Syringe IVP 05/22/24 23:59 19 ml DIRECTED AUGIE Administration Iohexol 500 ml 04/22/24 08:30 04/22/24 08:21 Omnipaque 350 Mg/Ml 500 Ml Btl-Imaging Package IJ 05/22/24 23:59 500 ml DIRECTED AUGIE Administration Sodium Chloride 50 ml 04/22/24 08:30 04/22/24 08:21 Normal Saline - Diluent 50 Ml Vial IJ 50 ml .FOR DI USE AUGIE Administration IV IV Catheter Type [Left Forearm Peripheral IV ] IV Catheter Gauge [Left 18 Forearm] Diet Orders Category Date Time Status Regular/Normal [DIET] Nutrition 04/22/24 Dinner Active Diagnostics 04/22/24 04/22/24 04/22/24 Range/Units 14:55 10:43 09:56 WBC (4.4-10.8) 10^3/uL RBC (3.93-5.22) 10^6/uL Hgb (11.2-15.7) g/dL Hct (36.0-46.0) % MCV (80-95) fL MCH (27.0-33.0) pg MCHC (32.0-36.0) % RDW (11.7-14.6) % Plt Count (130-400) 10^3/uL MPV (8.0-11.0) fL Immature Gran % % Neutrophils % % Lymphocytes % % Monocytes % % Eosinophils % % Basophils % % Nucleated RBC % (0.0-0.3) % Absolute Neutrophils (1.2-6.7) 10^3/uL Absolute Lymphocytes (1.2-3.4) 10^3/uL Absolute Monocytes (0.1-0.8) 10^3/uL Absolute Eosinophils (0.0-0.7) 10^3/uL Absolute Basophils (0.0-0.2) 10^3/uL ESR Pending PT (9.1-11.1) sec INR (0.9-1.1) Sodium (136-145) mmol/L Potassium (3.5-5.1) mmol/L Chloride (98-107) mmol/L Carbon Dioxide (21.0-32.0) mmol/L Anion Gap (3-11) mmol/L BUN (7-18) mg/dL Creatinine (0.55-1.02) mg/dL Est GFR (CKD-EPI 2020) (mL/min/1.73m2) Glucose (74-106) mg/dL Calcium (8.5-10.1) mg/dL Magnesium (1.8-2.4) mg/dL Total Bilirubin (0.2-1.0) mg/dL AST (15-37) U/L ALT (14-59) U/L Alkaline Phosphatase (46-116) U/L Troponin I Cancelled 7 (<or=51) ng/L Total Protein (6.4-8.2) g/dL Albumin (3.4-5.0) g/dL 04/22/24 Range/Units 07:53 WBC 8.86 (4.4-10.8) 10^3/uL RBC 5.13 (3.93-5.22) 10^6/uL Hgb 15.3 (11.2-15.7) g/dL Hct 45.1 (36.0-46.0) % MCV 88 (80-95) fL MCH 29.8 (27.0-33.0) pg MCHC 33.9 (32.0-36.0) % RDW 11.9 (11.7-14.6) % Plt Count 255 (130-400) 10^3/uL MPV 10.5 (8.0-11.0) fL Immature Gran % 0.3 % Neutrophils % 64.6 % Lymphocytes % 25.4 % Monocytes % 7.7 % Eosinophils % 1.4 % Basophils % 0.6 % Nucleated RBC % 0.0 (0.0-0.3) % Absolute Neutrophils 5.73 (1.2-6.7) 10^3/uL Absolute Lymphocytes 2.25 (1.2-3.4) 10^3/uL Absolute Monocytes 0.68 (0.1-0.8) 10^3/uL Absolute Eosinophils 0.12 (0.0-0.7) 10^3/uL Absolute Basophils 0.05 (0.0-0.2) 10^3/uL ESR PT 10.0 (9.1-11.1) sec INR 1.0 (0.9-1.1) Sodium 144 (136-145) mmol/L Potassium 3.5 (3.5-5.1) mmol/L Chloride 108 H (98-107) mmol/L Carbon Dioxide 24.1 (21.0-32.0) mmol/L Anion Gap 11.9 H (3-11) mmol/L BUN 12 (7-18) mg/dL Creatinine 0.9 (0.55-1.02) mg/dL Est GFR (CKD-EPI 2020) 75.03 (mL/min/1.73m2) Glucose 101 (74-106) mg/dL Calcium 10.0 (8.5-10.1) mg/dL Magnesium 2.1 (1.8-2.4) mg/dL Total Bilirubin 1.00 (0.2-1.0) mg/dL AST 25 (15-37) U/L ALT 30 (14-59) U/L Alkaline Phosphatase 120 H (46-116) U/L Troponin I 7 (<or=51) ng/L Total Protein 8.1 (6.4-8.2) g/dL Albumin 4.0 (3.4-5.0) g/dL Intake and Output - 24 Hour Total 04/22/24 07:30 thru 04/22/24 07:35 Weight 93.894 kg Falls Risk Assessment History of Falls No History 04/22/24 07:42 Contributing Factors Unstable,Impairments 04/22/24 07:42 Tubes/Lines None 04/22/24 07:42 Gait Evaluation W/no contributing factors 04/22/24 07:42 Cognition No cognitive impairment 04/22/24 07:42 Fall Total Score 16 04/22/24 07:42 Level of Risk Standard/Low Risk 04/22/24 07:42 Problems Vestibular labyrinthitis (Acute) CRPS (complex regional pain syndrome type I) (Acute) CVA (cerebral vascular accident) (Chronic) v v v v v v v v v Sending and/or Receiving Nurses: Please use comment section below to note any information pertinent to the patient hand-off not included above. Information / Comments: Report received from:Marixa at 1610 given to rhea LERMA
[2024-04-22 16:21] LABS: ESR 30 mm/hr (0-30)
[2024-04-22] MEDS: Enoxaparin 40 MG/0.4 ML SYR SC (17:40)
[2024-04-22] MEDS: Acetaminophen 325 MG TAB PO ×2 (17:40→21:39)
[2024-04-22] MEDS: Normal Saline Flush 10 ML SYR IVP (19:30)
[2024-04-23] VITALS (8 sets, daily range): BP systolic 154–174; BP diastolic 95–102; PULSE 74–92; RESP 15–18; TEMP 36–37.1; O2SAT 94–97
[2024-04-23] MEDS: traMADol 50 MG TAB PO ×2 (00:44→19:51)
[2024-04-23] MEDS: Levothyroxine 100 MCG TAB PO (06:29)
[2024-04-23 06:31] LABS: HCT 44.3 % (36.0-46.0); HGB 15.3 g/dL (11.2-15.7); MCHC 34.5 % (32.0-36.0); MCV 87 fL (80-95); MPV 10.6 fL (8.0-11.0); Platelet Count 274 10^3/uL (130-400); RDW 11.9 % (11.7-14.6); RDW-SD 38.2 fL; WBC 7.56 10^3/uL (4.4-10.8)
[2024-04-23 06:59] LABS: ALT 26 U/L (14-59); AST 18 U/L (15-37); Albumin 3.8 g/dL (3.4-5.0); Alkaline Phosphatase 115 U/L (46-116); Anion Gap 12.1 mmol/L (3-11); BUN 15 mg/dL (7-18); CO2 25.9 mmol/L (21.0-32.0); CREATININE 0.9 mg/dL (0.55-1.02); Calcium 9.6 mg/dL (8.5-10.1); Chloride 105 mmol/L (98-107); Estimated GFR 75.03 (mL/min/1.73m2); Glucose 91 mg/dL (74-106); Potassium 3.6 mmol/L (3.5-5.1); Sodium 143 mmol/L (136-145); Total Protein 7.8 g/dL (6.4-8.2)
[2024-04-23] MEDS: predniSONE 20 MG TAB 80 MG PO (08:54)
[2024-04-23] MEDS: Omeprazole 20 MG CAPCR PO (08:54)
[2024-04-23] MEDS: Normal Saline Flush 10 ML SYR IVP ×2 (08:54→19:52)
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
--- NOTE | 2024-04-23 10:30 | DI.US_ITS ---
APPROVED REPORT EXAM: Comprehensive 2D, Doppler, and color-flow Echocardiogram Patient Location: In-Patient Room/Bed: [facility] Supervisor Intelligence Analyst: Michele Harper RDCS (AE) Indications: CVA Echo Enhancing Agent Indication: Rule out Shunt Agent(s) / Amount(s) Used: Agitated Saline 30.0 cc Comments: Contrast study was performed with 3 IV injections of 10ccs of agitated normal saline, at re st, with cough and post valsalva maneuver. Negative contrast study for shunt flow. Other Information Study Quality: Adequate Conclusion Normal left ventricular wall thickness and chamber size. Ejection fraction is 60%. Wall motion is n ormal Normal right ventricular size and function Both atria are normal in size No intracardiac shunting is identified with injection of agitated saline There are no structural or hemodynamically significant valvular abnormalities Ascending aorta measures 4.2 cm Wall motion Left Ventricle Left ventricle is moderately dilated. The left ventricular systolic function is normal. The left vent ricular ejection fraction is within the normal range. There is normal left ventricular wall thickness . There is normal LV segmental wall motion. There is no ventricular septal defect visualized. LVEF is 60%. Right Ventricle The right ventricle is normal size. The right ventricular systolic function is normal. Atria The left atrium size is normal. Right atrium is mildly dilated. The interatrial septum is intact with no evidence for an atrial septal defect. Saline bubble contrast intravenous injection does not demon strate PFO. Aortic Valve Aortic valve is trileaflet. There is no aortic valvular stenosis. No aortic regurgitation is present . Mitral Valve The mitral valve is normal in structure. No evidence of mitral valve stenosis. Trace mitral regurgita tion. Tricuspid Valve The tricuspid valve is normal in structure. There is no tricuspid valve stenosis. Trace to mild tricu spid regurgitation. The RVSP is 21.8 mmHg. Pulmonic Valve The pulmonary valve is normal in structure. There is no pulmonic valvular stenosis. There is no pulmo walker valvular regurgitation. Great Vessels The aortic root is normal in size. The ascending aorta is moderately dilated. Aortic arch is normal i n caliber. IVC is normal in size and collapses >50% with inspiration. Pericardium There is no pericardial effusion. 2D Dimensions IVSD d PLAX 0.90 cm F: 0.6-1.0 Ao Root d 2.89 cm F: 2.7 - 3.3 LVPW d PLAX 0.85 cm F: 0.6 - 1.0 Ao Asc Diam d 4.21 cm F: 2.3 - 3.1 LVID d PLAX 6.23 cm F: 3.8 - 5.2 LVDs 4.11 cm F: 2.2 - 3.5 LV EF Teichholz 61.9 % FS 33.99 % LV EDV (Teich) 195.9 mL LV ESV (Teich) 74.7 mL Stroke Vol Index (Teich) 61.24 M-Mode TAPSE 2.38 cm (M/F) >1.7 Auto EF LV EDV A4C 110.1 mL LV EDV A2C 81.7 mL LV EDV BP 96.9 mL LV ESV A4C 45.9 mL LV ESV A2C 31.7 mL LV ESV BP 38.4 mL LVEF(%) A4C 58.3 % LVEF(%) A2C 61.2 % LVEF(%) BP 60.3 % LV SV A4C 64.1 ml LV SV A2C 50.0 ml LV SV BP 58.5 ml LV CO A4C 4.8 L/min LV CO A2C 3.8 L/min LV CO BP 4.3 L/min HR A4C 75.00 BPM HR A2C 76.76 BPM LV EDV Index (BP) LA Volume LA Length A4C 4.6 cm LA Length A2C 5.0 cm LA Area A4C s 11.18 cm2 LA Area A2C s 11.88 cm2 LA Vol A4C A-L 23.00 mL LA Vol A2C A-L 24.07 mL LA Vol Biplane A-L 24.4 mL LA Vol/BSA A4C A-L LA Vol/BSA A2C A-L LA Vol/BSA BP A-L 12.3 mL/m2 LA Vol A4C MOD 21.4 mL LA Vol A2C MOD 23.2 mL LA Vol BP MOD 23.1 mL RA Volume RA Area A4C 12.1 cm2 RA ESV A4C (A-L) 26.4mL RA Vol/BSA A4C A-L RA Length A4C 4.7 cm RA ESV A4C (MOD) 24.8mL LV Diastology MV E' medial 0.054 (>0.07 m/s) MV E Vmax 0.54 (0.4-1.3 m/s) MV E/E' MED 10.02 (<14) MV A Vmax 0.85 (0.4-1.3 m/s) MV E' lateral 0.105 (>0.1 m/s) E/A Ratio 0.6 MV E/E' LAT 5.09 (<14) MV E' Average 0.079 m/s MV E/E'(average) 6.75 Aortic Valve AoV Vmax 1.75 m/s LVOT Vmax 0.96 m/s AoV Peak Grad 12.2 mmHg LVOT Peak Grad 3.7 mmHg AoV Area (Vmax) 1.68 cm2 LVOT VTI 0.226 m AoV VTI 0.273 m LVOT Mean Grad 2.2 mmHg AoV Mean Bala. 1.07 m/s LVOT SV 68.97 mL AoV Mean Grad 5.4 mmHg LVOT Diam s 1.95 cm AoV Area (VTI) 2.53 cm2 AV Regurg Peak Gr. 12.21 mmHg Velocity Ratio 0.55 Pulmonary Valve PV Vmax 1.05 (0.5-1.5 m/s) RVOT Vmax 0.85 m/s PV Peak Grad 4.4 mmHg RVOT Peak Gr. 2.9 mmHg PV Mean Bala 0.72 m/s RVOT VTI 0.151 m PV Mean Grad 2.3 mmHg RVOT Mean Gr. 1.7 mmHg Tricuspid Valve RA Pressure 3.00 mmHg TR Vmax 2.17 m/s TR Peak Grad 18.8 mmHg RVSP (TR) 21.8 mmHg
[2024-04-23] MEDS: Acetaminophen 325 MG TAB PO ×2 (15:08→19:51)
--- NOTE | 2024-04-23 15:49 | PGE_ITS ---
Date of Service Date of service: 04/23/24 Time of Service: 15:49 Assessment and Plan Assessment and plan (1) CVA (cerebral vascular accident): Status: Chronic Assessment and plan: pt awaiting echo. Doubt CVA but will continue work up. Teleneuro did not recommend any plavix (2) CRPS (complex regional pain syndrome type I): Status: Acute Assessment and plan: cw current plan (3) Vestibular labyrinthitis: Status: Acute Assessment and plan: There is recommendation from neuro to treat with prednisone 1mg/kg for seven days. UTD does not recommend steroids or anti-virals. Hopefully this can be readdressed on next call. (4) Vertical nystagmus: Status: Acute Assessment and plan: Exact etiology is unknown. I have reconsulted Teleneurology to get an opinion in regard to etiology and treatment options Subjective Subjective Interval history since last seen: Pt seen and examined in her room this afternoon. During PT evaluation, pt was noted to have significant vertical and rotational nystagmus. POC d/w pt as well as bedside nurse during MDR Exam Narrative Exam Narrative: Head eyes ears nose and throat: Normocephalic atraumatic mucous membranes moist oropharynx is clear extraocular motions are intact. Pt did have vertical as well as horizontal nystagmus and rotational nystagmus. Smile was intact and patient was able to raise both her eyebrows Neck: No lymphadenopathy no JVD no thyromegaly Cardiovascular: Regular rate and rhythm no murmurs gallops Lungs: Clear to auscultation bilaterally with good air exchange Abdomen: Soft nontender nondistended bowel sounds active Neurologic: Cranial nerves II through XII intact as tested reflexes in upper lower extremity normal as tested Psych: Alert and orient x 3 General: 58-year-old female appears her stated age no apparent distress Objective Last Vital Signs Temp 36.9 C 04/23/24 15:34 Pulse 92 H 04/23/24 15:34 Resp 15 04/23/24 15:34 BP 162/96 H 04/23/24 15:46 Pulse Ox 95 04/23/24 15:34 Laboratory Results - last 24 hr 04/22/24 04/23/24 07:53 06:06 WBC 7.56 RBC 5.10 Hgb 15.3 Hct 44.3 MCV 87 MCH 30.0 MCHC 34.5 RDW 11.9 Plt Count 274 MPV 10.6 ESR 30 Sodium 143 Potassium 3.6 Chloride 105 Carbon Dioxide 25.9 Anion Gap 12.1 H BUN 15 Creatinine 0.9 Est GFR (CKD-EPI 2020) 75.03 Glucose 91 Calcium 9.6 Total Bilirubin 1.20 H AST 18 ALT 26 Alkaline Phosphatase 115 Total Protein 7.8 Albumin 3.8 Time Spent with Patient Time Spent with Patient: 25-34 minutes Time was spent: preparing to see the patient(eg.review tests), obtaining and/or reviewing separately otained hiistory, ordering medications,tests, procedures, referring, communicating with other health resident care manager rn, indepentently interpreting results, counseling the patient and care coordination
[2024-04-23] MEDS: Enoxaparin 40 MG/0.4 ML SYR SC (16:23)
--- NOTE | 2024-04-23 16:27 | PHA.REVIEW2 ---
Pharmacy Admission Review Admission Clinical Review Admission Pharmacy Review: Vertical nystagmus (Acute) Vestibular labyrinthitis (Acute) CRPS (complex regional pain syndrome type I) (Acute) duloxetine (From Cymbalta) Adverse Reaction (Intermediate, Verified 04/22/24 07:41) Other (See Comment) pregabalin (From Lyrica) Adverse Reaction (Intermediate, Verified 04/22/24 07:41) Other (See Comment) sulfabenzamide Adverse Reaction (Intermediate, Unverified 04/22/24 07:41) Unknown Resuscitation Status Full Code Height 5 ft 4.5 in Weight 98 kg Comments Comments/Follow Ups: needs echo Pharmacy Admission Review Renal Dosing Renal Dosing: BUN 15 mg/dL (7-18) 04/23/24 06:06 Creatinine 0.9 mg/dL (0.55-1.02) 04/23/24 06:06 Medications needing adjustments: Reviewed (CrCl 80.11 mL/min) List of meds needing interventions: Current medications are okay Anticoagulation Anticoagulation: Hgb 15.3 g/dL (11.2-15.7) 04/23/24 06:06 Hct 44.3 % (36.0-46.0) 04/23/24 06:06 Plt Count 274 10^3/uL (130-400) 04/23/24 06:06 INR 1.0 (0.9-1.1) 04/22/24 07:53 Creatinine 0.9 mg/dL (0.55-1.02) 04/23/24 06:06 DVT Prophylaxis: Reviewed Medications: Enoxaparin (40mg daily) Relevant Labs Relevant Labs: ESR 30 mm/hr (0-30) 04/22/24 07:53 Sodium 143 mmol/L (136-145) 04/23/24 06:06 Potassium 3.6 mmol/L (3.5-5.1) 04/23/24 06:06 Chloride 105 mmol/L (98-107) 04/23/24 06:06 Magnesium 2.1 mg/dL (1.8-2.4) 04/22/24 07:53 Electrolytes, C-Reactive P, ESR: Reviewed Cardiac Review Cardiac Review: Troponin I Cancelled 04/22/24 10:43 Blood Pressure 162/96 1546 Blood Pressure 160/101 1534 Blood Pressure 174/95 1142 Blood Pressure 173/97 0809 BP, HR, EF%: Reviewed (HR WNL) QTc Review QTc: Reviewed (443 from 04/22/24) IV to PO Switch IV Medications: Reviewed Home Meds Home Med List reviewed: Reviewed Relevent Home Meds Not ordered & why?: ibuprofen (PRN) and irbesartan (on hold for permissive HTN per H+P) Current Meds Current Medication Order Review: Reviewed Comments Comments/Follow Ups: needs echo
--- NOTE | 2024-04-23 16:32 | CHAPLAIN ---
Meli was up in the chair when I visited. She was very pleasant. 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 She's living in temporary housing in [place] and just recently found out that she'll have an apartment available to her in July in [place] and she is very happy about that. Meli said she is an optimisic person and grateful that this housing situation is working out for her to move back to [place].
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
[2024-04-23] MEDS: Baclofen 10 MG TAB 5 MG PO (23:12)
[2024-04-24 03:26] VITALS: BP 157/97; PULSE 70; RESP 15; TEMP 36.6; O2SAT 98
[2024-04-24] MEDS: Acetaminophen 325 MG TAB PO (04:21)
[2024-04-24] MEDS: Levothyroxine 100 MCG TAB PO (06:18)
[2024-04-24 07:45] VITALS: BP 164/99; PULSE 70; RESP 18; TEMP 36.6; O2SAT 97
[2024-04-24] MEDS: predniSONE 20 MG TAB 80 MG PO (08:48)
[2024-04-24] MEDS: Normal Saline Flush 10 ML SYR IVP (08:48)
[2024-04-24] MEDS: Omeprazole 20 MG CAPCR PO (08:48)
[2024-04-24] MEDS: Baclofen 10 MG TAB 5 MG PO (10:12)
--- NOTE | 2024-04-24 11:06 | W.PM.DS.N ---
Date of service: 04/24/24 Time of Service: 11:06 DS: Diagnosis Discharge Diagnosis (1) CVA (cerebral vascular accident): Status: Chronic (2) CRPS (complex regional pain syndrome type I): Status: Acute (3) Vestibular labyrinthitis: Status: Acute (4) Vertical nystagmus: Status: Acute Discharge Plan Disposition Patient Disposition: Home Condition: Improving Discharge Details Reason For Visit: Possible CVA Admit Date/Time: 04/22/24 14:50 Admit Provider: Tio Stallworth Attending Provider: Tio Stallworth Primary Care Provider: Maite Bright Hospital Course Hospital Course: This is a 58-year-old female who presents to the ED on 22 April 2024 for signs and symptoms of possible CVA versus TIA. Patient was seen in consultation with neurology via the teleneurologist service and a recommendation was made to admit the patient to the hospital for evaluation of a stroke. Over the progression of time the diagnosis of a CVA became less likely and the neurologist stated that most likely this was vestibular neuritis as opposed to a CVA. Of note the patient did get a CT as well as an MRI while she was here in the MRI stated of a 12 x 10 x 6 mm focus of signal abnormality in the left para supraventricular white matter. An echocardiogram was performed which was essentially benign including a normal bubble study. On the the patient asked to be discharged home to which I agreed. She will go home with another 7 days worth of prednisone 80 mg daily at the recommendation of the neurologist from [facility]. Of note, the patient did have some vertical as well as rotational horizontal nystagmus. The recommendation from neurology was to follow-up in the outpatient setting if this does not resolve after the completion of her steroid dose. Patient will be discharged in good condition. Home Meds and New Rx's Prescriptions: New prednisone 20 mg Tablet 80 mg PO DAILY 7 Days Qty: 28 0RF Continued Medical Marijauna 1 ea PO DAILY PRN levothyroxine 100 MCG tablet 100 mcg PO DAILY irbesartan [Avapro] 150 MG tablet 150 mg PO DAILY ibuprofen 600 MG tablet 600 mg PO QID PRN Discharge Instructions Referrals: Maite Bright [Primary Care Provider] - (follow up in 5-7 days Recommend outpatient evaluation by Neurology at the discretion of PCP) Activity:: Activity as Tolerated Equipment/Supplies:: No Equipment Needed Diet:: As Tolerated Discharge Orders Discharge Orders: Discharge Order (Routine); Ordered 04/24/24 Ordered By: Tio Stallworth DS: Summary Time Spent with Patient providing and/or coordinating discharge services: Greater than 30 minutes Status at Discharge Functional status at discharge: independent ambulation Overall status at discharge: patient is back to baseline Mental Status: mental status grossly normal Speech and Movement: speech and movement normal Mood: congruent mood Affect: normal affect Quality:SDOH Health Related Social Needs: Health related social needs food insecurity (Z59.41), problems related to housing/economic circumstances (Z59.89), problems with daily activities (Z73.9), feeling lonely/isolated (Z60.8) Exam Narrative Exam Narrative: Head eyes ears nose and throat: Normocephalic atraumatic mucous membranes moist oropharynx is clear extraocular motions are intact. Pt did have vertical as well as horizontal nystagmus and rotational nystagmus. Smile was intact and patient was able to raise both her eyebrows Neck: No lymphadenopathy no JVD no thyromegaly Cardiovascular: Regular rate and rhythm no murmurs gallops Lungs: Clear to auscultation bilaterally with good air exchange Abdomen: Soft nontender nondistended bowel sounds active Neurologic: Cranial nerves II through XII intact as tested reflexes in upper lower extremity normal as tested Psych: Alert and orient x 3 General: 58-year-old female appears her stated age no apparent distress Psych Mental Status: mental status grossly normal Speech and Movement: speech and movement normal Mood: congruent mood Affect: normal affect DS: Data Vitals/I&O Vitals and I&O: Vital Signs Temperature 36.6 C 04/24/24 07:45 Temperature Source Temporal Artery Scan 04/24/24 07:45 Pulse 70 04/24/24 07:45 Pulse Rhythm Regular 04/22/24 16:31 Pulse 70 04/22/24 16:10 Respiratory Rate 18 04/24/24 07:45 Respiratory Effort Normal 04/22/24 16:31 Respiratory Depth Normal 04/22/24 16:31 Respiratory Pattern Normal 04/22/24 16:31 Blood Pressure 164/99 H 04/24/24 07:45 Blood Pressure Mean 136 04/22/24 12:01 Pulse Oximetry 97 04/24/24 07:45 Oxygen Delivery Method Room Air 04/24/24 07:45 Oxygen Flow Rate 0 04/24/24 07:45 Pain Level 9 04/24/24 04:21 Comment RN Notified 04/24/24 03:26 Intake & Output 04/23/24 04/23/24 04/24/24 11:59 23:59 11:59 Intake Total 530 / 540 10 / 540 410 / 410 Output Total 400 / 900 500 / 900 200 / 200 Balance 130 / -360 -490 / -360 210 / 210 Weight 98 kg Intake: IV Oral 520 / 520 400 / 400 Output: Urine 400 / 900 500 / 900 200 / 200 Other: Urine Color Yellow Yellow Yellow Urine Appearance Clear Clear Clear Urine Odor None Normal Normal Stool Size Small Stool Characteristics Formed Hard Brown PFSH All Active Problems (Updated 04/23/24 @ 15:54 by Tio Stallworth MD) Vertical nystagmus (Acute) Vestibular labyrinthitis (Acute) CRPS (complex regional pain syndrome type I) (Acute) CVA (cerebral vascular accident) (Chronic) Social History Smoking/Tobacco Use Status: Never Smoking risk assessment performed?: Yes Alcohol Intake: never Drug use: Never Substance use type: marijuana Details: medical MJ Housing: other Do you feel safe in your relationship?: Yes Time Spent with Patient Time Spent with Patient: 45-69 minutes Time was spent: preparing to see the patient(eg.review tests), obtaining and/or reviewing separately otained hiistory, ordering medications,tests, procedures, referring, communicating with other health director of home care hospice, indepentently interpreting results, counseling the patient and care coordination
--- NOTE | 2024-04-24 11:13 | PTTR_ITS ---
PT Notes Visit Reasons: Possible CVA Inpatient Physical Therapy Treatment Note [facility] Date: 04/24/24 PRECAUTIONS:fall, standard SUBJECTIVE: Meli states that she is feeling much better today. She no longer has any room spinning dizziness, but continues to feel off balance and have blurred vision due to nystagmus. She denies hearing changes (has chronic left hearing loss) or tinnitus. No dizziness with head movement or bed mobility. Onset of symptoms was mid-day, not mechanically provoked. She reports planned discharge for later today, which she is looking forward to. OBJECTIVE: ? BED MOBILITY/TRANSFERS? Rolling L/R: independent Supine-sit: independent? Sit-supine: independent ? Sit-stand: independent? Stand-sit: independent ? Neuromuscular Re-education (21197u7): for balance and vestibular retraining Meli demonstrates constant vertical nystagmus, regardless of gaze position. This does not fatigue. Cervical ROM is full, and without symptom provocation Test of skew is difficult to assess due to vertical nystagmus Head thrust is (-) Small MAHIN standing with eyes closed evokes immediate LOB right lateral ? GAIT? Assistive Device: FWW? Weight bearing: full Assist: SBA ? Distance:? 300'x2 ? Deviation: path deviation with introduction of head turns during amb ulation ? Instructed in the following: small MAHIN standing, eyes closed, bilat fingertip support to FWW, 30 seconds standing VOR x 2 10x, max cues tandem walk, with unilateral UE support, 10'x4, forward and back ASSESSMENT:? Improving mobility in the presence of acute symptoms of vertigo. Symptoms remain suspicious for central origin, due to sustained vertical nystagmus and lack of mechanical provocation. Recommend continued compensatory strategies for improved balance and mobility, with PT. PLAN: Anticipated discharge home later today. Recommend continued PT intervention with PT to allow for continued balance retraining and training in compensatory strategies. TREATMENT CODE/TIME: 2996-5948 DISCHARGE RECOMMENDATION: Home with PT Alyce Shannon, PT, DPT [facility]
--- NOTE | 2024-04-24 11:41 | PDOC.CMDIS ---
Date of service: 04/24/24 Time of Service: 11:41 LACE Index Scoring Tool Questions: Length of Stay (in days): 2 Was the patient admitted via the E.D.?: Yes Comorbidities: Cerebrovascular Disease E.D. Visits: 1 Answers: Total Score: 7 Risk of Readmission: Low Risk Care Management Discharge Plan Reason for Hospitalization: r/o CVA found to have vestibular labyrinthitis for which prednisone was recommended Discharge Plan: Meli is discharged today with new orders for PT. She is also discharged with a 4 day course of prednisone. Meli will f/u with her PCP and continue per her plan of care. She will transport home via private vehicle with her friend. Patient/Family Education Needs: Review of discharge instructions, activity, limitations, and discuss ask me 3. Services Needed at Discharge: Home Health Care Services (new PT) SDOH Health Related Social Needs: Health related social needs food insecurity (Z59.41), problems related to housing/economic circumstances (Z59.89), problems with daily activities (Z73.9), feeling lonely/isolated (Z60.8)
--- NOTE | 2024-04-24 12:06 | PDOC.HHF2F ---
Home Health Referral Home Health Orders Clinical synopsis of why skilled professionals are needed: vestibular neuritis Medical diagnosis necessitation home health referral: vestibular neuritis Physical Therapist: Check all that apply Increase strength & endurance for safe mobility at home: Ordered To design/establish home maintenance program: Ordered Fall reduction therapy program for patient with history of frequent falls: Ordered Home safety evaluation and teaching/gait training including stair management (if applicable): Ordered Better Breathing Program: Ordered Home Bound Status Use of Special Transportation (Describe transportation and medical necessity): no vehicle Describe why leaving home would require a considerable and taxing effort: Requires frequent rest periods Encounter Date and Reason: I certify that a FTF encounter for this patient was performed on April 24, 2024 and that such encounter was related to the primary reason the patient requires home health services. The encounter was conducted in the following manner: By me as the certifying physician, APPLICATION SOFTWARE ENGINEER, PA or By an inpatient physician, APPLICATION SOFTWARE ENGINEER or PA during an inpatient stay who communicated findings to me, Certification And Authentication I certify that I composed the above information based on my clinical judgment relating to this patient's medical condition and, if applicable, clinical findings communicated to me by the NPP or inpatient physician who performed the FTF encounter. Name of Provider that will be monitoring home health services: Maite Bright
--- NOTE | 2024-04-25 15:54 | PDOC.HHF2F ---
Home Health Referral Home Health Orders Clinical synopsis of why skilled professionals are needed: weakness, vestibular neuritis, diploplia Medical diagnosis necessitation home health referral: weakness, vestibular neuritis, diploplia Physical Therapist: Check all that apply Increase strength & endurance for safe mobility at home: Ordered To design/establish home maintenance program: Ordered Fall reduction therapy program for patient with history of frequent falls: Ordered Home safety evaluation and teaching/gait training including stair management (if applicable): Ordered Better Breathing Program: Ordered Home Bound Status Assistance of another person (Describe assistance and medical necessity): pt needs assistance as she is prone to falls, has vestibular neuritis and vision difficulties from the neuritis Encounter Date and Reason: I certify that a FTF encounter for this patient was performed on April 25, 2024 and that such encounter was related to the primary reason the patient requires home health services. The encounter was conducted in the following manner: By me as the certifying physician, [employer], PA or By an inpatient physician, [employer]ER or PA during an inpatient stay who communicated findings to me, Certification And Authentication I certify that I composed the above information based on my clinical judgment relating to this patient's medical condition and, if applicable, clinical findings communicated to me by the NPP or inpatient physician who performed the FTF encounter. Name of Provider that will be monitoring home health services: Maite Bright
== END 2024-04-24 12:49 | disposition home or self-care (01) ==
LOC: ER 15:08 → MS 16:25
PROVIDERS: Admitting Provider Hospitalist; Emergency Provider Emergency Medicine; PCP Nurse Practitioner Family; Visit Provider Hospitalist
DX: H83.03 Labyrinthitis, bilateral (principal); H55.09 Other forms of nystagmus; R27.8 Other lack of coordination; R11.2 Nausea with vomiting, unspecified; G90.513 Complex regional pain syndrome I of upper limb, bilateral; I10 Essential (primary) hypertension; E03.9 Hypothyroidism, unspecified; M47.817 Spondylosis without myelopathy or radiculopathy, lumbosacral region; Z79.899 Other long term (current) drug therapy; Z59.41 Food insecurity; Z59.89 Other problems related to housing and economic circumstances; Z60.8 Other problems related to social environment; Z73.89 Other problems related to life management difficulty
CPT/HCPCS: 00123; 36415; 70496; 70498; 70553; 80053; 85027; 85652; 93005; 93306; 96372; 96374; 96375; 97112; 97162; 99285; J1650; 83735; 84484; 85025; 85610; 93010; 99222; 99232; 99239; G0378; J2405; J7512